=== PATIENT | female | born 1970 | race Caucasian/White ===

== ENCOUNTER 2019-03-27 19:02 | Emergency (ER) | payer OTHER, SELFPAY ==
[2019-03-27] VITALS (7 sets, daily range): BP systolic 122–147; BP diastolic 68–83; PULSE 91–109; RESP 14–21; TEMP 36.9; O2SAT 96–99
[2019-03-27 19:58] LABS: Bilirubin Negative (Negative); Blood Negative (Negative); Clarity Clear (Clear); Glucose Negative (Negative); Ketones Negative (Negative); Leukocyte Esterase Negative (Negative); Nitrite Negative (Negative); Specific Gravity 1.015 (1.005-1.025); Urobilinogen 0.2 EU/dL (Up TO 0.2)
[2019-03-27] MEDS: Normal Saline 1,000 ML 1000 ML IV (20:00)
[2019-03-27 20:38] LABS: Abs Immature Grans 0.01 k/cumm (0.0-0.09); Absolute Basophil Count 0.01 k/cumm (0.0-0.2); Absolute Eosinophil Count 0.28 k/cumm (0.0-0.7); Absolute Lymphocyte Count 1.63 k/cumm (1.2-3.4); Absolute Monocyte Count 0.44 k/cumm (0.11-0.7); Absolute Neutrophil Count 3.79 k/cumm (1.2-6.7); Basophils % 0.2; Eosinophils % 4.5; HGB 12.8 g/dL (12.0-15.5); Immature Grans % 0.2; Lymphocytes % 26.5; Mean Corp. HGB Concentration 33.7 g/dL (32.0-36.0); Mean Corpuscular Hemoglobin 29.3 pg (27.0-33.0); Mean Platelet Volume 9.9 fL (8.0-11.0); Monocytes % 7.1; Neutrophils % 61.5; Platelet Count 249 x1000/uL (130-400); RBC 4.37 m/cumm (4.00-5.20); RBC Distribution Width 12.8 % (11.7-14.6); White Blood Cell Count 6.16 k/cumm (4.4-10.8)
[2019-03-27 20:51] LABS: INR 0.9 (0.9-1.1); PTT Activated 21.5 sec (21.0-31.4); Prothrombin Time 9.3 sec (9.3-11.0)
[2019-03-27 21:04] LABS: ALT 35 U/L (12-78); AST 18 U/L (15-37); Albumin 3.7 g/dL (3.4-5.0); Alkaline Phosphatase 93 U/L (46-116); Anion Gap 8.6 mmol/L (3-11); BUN 17 mg/dL (7-18); Bilirubin, Total 0.2 mg/dL (0.2-1.0); CO2 28.4 mmol/L (21.0-32.0); CREATININE 1.17 mg/dL (0.55-1.02); Calcium 8.5 mg/dL (8.5-10.1); Chloride 105 mmol/L (98-107); Estimated GFR 48.96 (mL/min/1.73m2); Glucose 93 mg/dL (70-100); NT-proBNP 28 pg/mL; Sodium 142 mmol/L (136-145); Total Protein 7.5 g/dL (6.4-8.2); Troponin I < 0.05 ng/mL (0.00-0.06)
[2019-03-27] MEDS: Acetaminophen 500 MG TAB (21:07)
[2019-03-27 21:08] LABS: D-Dimer 538 ng/mlFEU (<500)
--- NOTE | 2019-03-27 21:21 | W.ED.GENAD ---
Discharge Plan Disposition Patient Disposition: HOME Condition: Good Discharge Details Chief Complaint: GenMedical Clinical Impression: CMV mononucleosis Primary Care Provider: Martin Raya ED Provider: Ross Crump Home Meds and New Rx's Prescriptions: No Action levothyroxine [Levoxyl] 125 MCG tablet 125 mcg PO DAILY RF: 0 liothyronine 5 MCG tablet 5 mcg PO BID RF: 0 epinephrine 0.3 MG/SYR auto-injector 0.3 mg IM PRN PRNRF: 0 escitalopram oxalate [Lexapro] 20 MG tablet 20 mg PO DAILY RF: 0 aspirin [Adult Low Dose Aspirin] 81 MG tablet,delayed release (DR/EC) 81 mg PO DAILY Qty: 100 RF: 0 nitroglycerin [Nitrostat] 0.4 MG tablet, sublingual 0.4 mg Sublingual Q5 MIN PRN X3 PRNQty: 100 RF: 0 Discharge Instructions Instructions: Mononucleosis (ED) Additional Instructions: You have mono. Please make sure that you are sleeping as much as possible, drinking plenty of fluids. If you notice any worsening of your symptoms, or any new symptoms such as vomiting, diarrhea, fever, chills, shortness of breath, chest pain, numbness, weakness, or fainting , bruising, pain on your left side of the abdomen, please return immediately to the emergency department for reevaluation. Please follow up with your primary care provider as soon as possible for reassessment and reevaluation. As always, it was a pleasure participating in your medical care today. Referrals: Martin Raya [Primary Care Provider] - Medical Decision Making This is a pleasant 48-year-old female who presents today for various symptoms mostly centering around fatigue, with a mild headache classic for her normal migraines, in addition to notable episode of syncope earlier today with mild shortness of breath. Physical exam demonstrates no neurologic abnormalities. No significant ,vertical or rotatory nystagmus. Questionable minimal horizontal nystagmus normal neurologic functioning, no clinical evidence of meningitis or meningeal signs. She does feel notably lightheaded when she does stand up. However orthostatic blood pressures are normal. Patient's resting heart rate is in the high 90s. With her history of PEs, not on anticoagulation, PE is certainly on the differential. We will add a d-dimer. We will assess for acute cardiac etiology. Will get neuroimaging secondary to her atypical dizziness and episode of syncope. We will rehydrate, evaluate for urinary abnormalities and reassess. 11 PM Patient's laboratory work-up has returned, no white count, thrombocytopenia, or coagulopathy. D-dimer was slightly elevated. CT Betsey was ordered. Electrolytes are normal, renal function stable. Troponin less than 0.05, proBNP and TSH are normal. Urinalysis negative for any evidence of infection. CT scan of the head is negative for any acute process per virtual radiology. CT angios the chest was performed, atypical timing of contrast was noted with an adequate opacification of all the pulmonary arteries. No significant pulmonary embolism noted, no evidence of dissection. No other abnormality for the lungs. With the lack of proper contrast opacification of the pulmonary vessels I did discuss this with the patient and she would like to hold off on any additional CT scans. We did discuss how this, albeit unlikely, may restrict complete diagnosis of a potential significant life-threatening abnormality that could lead to or disability. I feel that this is unlikely but still a possibility. We discussed this with the patient and family and through shared decision making process we decided to hold off in any additional CT findings. Of note the patient does state that her symptoms feel notably different and atypical from when she did have her last PE. In regards to her headache she was given a migraine cocktail and has notable improvement of her symptoms. Signs and symptoms are inconsistent with meningitis, CT scan negative for bleed or mass or stroke. Clinical exam is not consistent with acute intercranial bleed or subarachnoid hemorrhage. No concerning red flags for this historically. Additionally patient has notable improvement of her symptomatology after migraine cocktail. Due to the lack of any significant answer on work-up, in regards to her fatigue. I did add a Monospot, this is notably positive. Oropharynx demonstrates no evidence of significant erythema, tonsillar enlargement or other abnormality. However clinically with her history of severe fatigue over the last few days certainly is concerning for mono. No other significant laboratory or diagnostic abnormality noted I feel she can be safely discharged home. Urinalysis is negative for infection. Recommend fluids, plenty of sleep, and close follow-up with her PCP. Discussed red flags which to return. I have extensively reviewed the treatment plan and discharge instructions with the patient and their family. I have addressed all patient concerns at this time. The patient and family was made aware of what symptoms to monitor for that would warrant a return to the emergency department. Discussed the plan with the patient and family, they demonstrate verbal understanding and agreement with our assessment and plan at this time. EKG 20: 08 Rate 96, intervals normal, sinus rhythm, no significant ST elevations or depressions, Q waves in lead III, no significant T wave inversions. No evidence of STEMI. EKG from 02/17/2016 demonstrates identical findings. No acute changes FINDINGS: Pulmonary arteries: Due to late timing of scan following the intravenous administration of contrast, there is inadequate opacification of the pulmonary arteries to allow for evaluation of pulmonary embolus. Aorta: No aortic aneurysm. No aortic dissection. Lungs: No consolidation. No masses. Pleural space: No pneumothorax. No pleural effusion. Heart: No cardiomegaly. No pericardial effusion. Lymph nodes: Unremarkable. No enlarged lymph nodes. Bones/joints: No acute fracture. Soft tissues: Unremarkable. IMPRESSION: Due to late timing of scan following the intravenous administration of contrast, there is inadequate opacification of the pulmonary arteries to allow for evaluation of pulmonary embolus. Thank you for allowing us to participate in the care of your patient. Dictated and Authenticated by: Elier Wolfe MD FINDINGS: Brain: No evidence for acute transcortical infarct. No mass effect or midline shift. No extra-axial collection. No acute intracranial hemorrhage. Basal cisterns are patent. Ventricles: Normal. No ventriculomegaly. Bones/joints: Unremarkable. No acute fracture. Sinuses: Visualized sinuses are unremarkable. No fluid levels. Mastoid air cells: Visualized mastoid air cells are well aerated. No mastoid effusion. Soft tissues: Unremarkable. IMPRESSION: No evidence for acute transcortical infarct, acute intracranial hemorrhage, or mass effect. Thank you for allowing us to participate in the care of your patient. Dictated and Authenticated by: Elier Wolfe MD HPI General Date/Time Provider Initiated Documentation: 03/27/19 20:02. 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 Over the past 3 days the patient has noticed significant fatigue. She has been extremely tired at all times, and regularly wants to go back to sleep after she wakes up. She is also developed a mild gradual onset headache that is in the front of her head with a mild throbbing-like sensation. She has a history of headaches migraines and states that this is identical to the ones that she has had in the past. The patient denies any headache red flags of worst headache of life, thunderclap headache, neck pain, fever, chills, concerning family history of polycystic kidney disease, Marfan syndrome, Irina-Danlos syndrome, abdominal aortic aneurysm, aortic dissection, or intracranial aneurysm. In addition to this over the last 2 to 3 days she has also had increased shortness of breath and lightheadedness as well as mild dizziness. She denies any tinnitus. However today the symptoms somewhat climax with an episode of syncope while walking. She is not over exerting herself but just walking around when she felt everything go black. She was caught by her significant other who lowered her gently to the floor. She did not strike her head. She has had no episodes since then however her dizziness and lightheadedness is notably been worse since then. Patient also does complain of mild dysuria in feelings of urgency, but denies any hematuria fever and chills. Patient has no other complaints at this time. No other additional modifying factors. She denies any history of heart attack. Denies PE risk factors such as recent long car rides, immobilization, recent surgery, morbid obesity, exogenous estrogen and smoking, hemoptysis, history of cancer. The patient does admit to being postmenopausal. Related Data Home Medications Medication Instructions Recorded Confirmed epinephrine 0.3 mg IM PRN PRN 04/19/15 09/30/17 levothyroxine [Levoxyl] 125 mcg PO DAILY 04/19/15 09/30/17 liothyronine 5 mcg PO BID 04/19/15 09/30/17 escitalopram oxalate [Lexapro] 20 mg PO DAILY 09/30/17 09/30/17 aspirin [Adult Low Dose Aspirin EC] 81 mg PO DAILY #100 tablet. 10/01/17 nitroglycerin [Nitrostat] 0.4 mg SUBLINGUAL Q5 MIN PRN X3 10/01/17 PRN #100 tab Previous Rx's Medication Instructions Recorded aspirin [Adult Low Dose Aspirin EC] 81 mg PO DAILY #100 tablet. 10/01/17 nitroglycerin [Nitrostat] 0.4 mg SUBLINGUAL Q5 MIN PRN X3 10/01/17 PRN #100 tab Allergies Allergy/AdvReac Type Severity Reaction Status Date / Time azithromycin Allergy Unverified 03/27/19 21:08 codeine Allergy Unverified 03/27/19 21:08 honey Allergy Unverified 03/27/19 21:08 morphine Allergy Unverified 03/27/19 21:08 Penicillins Allergy Unverified 03/27/19 21:08 prednisone Allergy Unverified 09/30/17 15:09 Sulfa (Sulfonamide Allergy Unverified 03/27/19 21:08 Antibiotics) venom-honey bee Allergy Unverified 03/27/19 21:08 [bee venom (honey bee)] General Stated Complaint: GenMedical JOHN: 3 Review of Systems Review of Systems All systems reviewed & are unremarkable except as noted in HPI and below PFSH Social History Smoking/Tobacco Use Status: Never Alcohol Intake: current Alcohol Intake frequency: a few times a week Alcohol type: other Drug use: Never Substance use type: does not use Do you feel safe at home: Yes Do you feel safe in your relationship?: Yes History History Para 3 Hx # Term Pregnancies Multiple births Hx # Pregnancies Ectopic pregnancies AB induced Hx Number of Living Children AB spontaneous Exam Narrative Exam Narrative: 1.Const: Well-nourished, Well-developed, appearing stated age 2.Eyes: PERRL, no conjunctival injection, and symmetrical lids. Please see neuro for further evaluation 3.ENT: Atraumatic external nose and ears. Moist MM. Neck: Symmetric, trachea midline, No thyromegaly. Patient demonstrates good movement of cervical neck. There is no nuchal rigidity, no nuchal tenderness. Patient is able to flex the neck without any difficulty or significant pain. Negative Kernig's and Brudzinski sign. 4.CVS: +S1/S2, No murmurs or gallops. Peripheral pulses 2+ and equal in all extremities. Brisk capillary refill in all extremities. 5.RESP: Unlabored respiratory effort. Clear to auscultation bilaterally. No wheezes rales or rhonchi 6.GI: Soft, Nontender/Nondistended, No hepatosplenomegaly. No guarding or rebound. 7.MSK: Normocephalic/Atraumatic, Extremities w/o deformity or ttp No cyanosis or clubbing, Normal movement of all extremities. No calf tenderness 8.Skin: Warm, Dry. No rashes or lesions. 9.Neuro: marketing project specialist II-XII grossly intact. Sensation grossly intact, no focal neurologic deficits. All 6 cardinal planes of vision are fully intact. No evidence of rotatory or vertical nystagmus. The patient demonstrated a normal [id number], good dexterity. There was no evidence of dysdiadochokinesia. Patient was able to ambulate without difficulty. There was no wide-based gait. She does feel slightly unsteady when she stands upright. Romberg, and xagg-on-mohg are both normal on testing. Sensation was intact bilaterally as well as muscle strength bilaterally for all extremities. Patient was able to verbalize butter cup with no slurring, or miss pronunciation. Cerebellar function testing is normal. The patient demonstrates a normal hints exam with no findings concerning for a central event. No vertical nystagmus. Minimal left-sided horizontal lifestyle the head impulse test is negative for any significant central abnormality. Normal test of skew. No suggestion of a central cerebellar event. 10.Psych: (AAO) x3. Appropriate mood and affect Course Vital Signs Temperature 36.9 C 03/27/19 19:30 Pulse 109 H 03/27/19 19:30 Respiratory Rate 16 03/27/19 19:30 Blood Pressure 128/68 03/27/19 19:30 Pulse Oximetry 98 03/27/19 19:30 Temperature 36.9 C 03/27/19 19:30 Temperature Source Temporal Artery Scan 03/27/19 19:30 Pulse 91 H 03/27/19 20:46 Pulse 92 H 03/27/19 20:46 Respiratory Rate 21 03/27/19 20:46 Respiratory Effort Non-Labored 03/27/19 19:32 Respiratory Depth Normal 03/27/19 19:32 Respiratory Pattern Normal 03/27/19 19:32 Blood Pressure 147/80 H 03/27/19 20:46 Blood Pressure Mean 92 03/27/19 20:46 Blood Pressure Position Sitting 03/27/19 19:30 Pulse Oximetry 97 03/27/19 20:46 Oxygen Delivery Method Room Air 03/27/19 19:30 Oxygen Flow Rate 0 03/27/19 19:30 Lab/Test Results Lab/Test Results: Laboratory Tests Range/Units 03/27/19 03/27/19 03/27/19 19:45 20:20 20:20 WBC (4.4-10.8) k/cumm 6.16 RBC (4.00-5.20) m/cumm 4.37 Hgb (12.0-15.5) g/dL 12.8 Hct (36.0-46.0) % 38.0 MCV (80-95) fL 87.0 MCH (27.0-33.0) pg 29.3 MCHC (32.0-36.0) g/dL 33.7 RDW (11.7-14.6) % 12.8 Plt Count (130-400) x1000/uL 249 MPV (8.0-11.0) fL 9.9 Immature Gran % 0.2 Neutrophils % 61.5 Lymphocytes % 26.5 Monocytes % 7.1 Eosinophils % 4.5 Basophils % 0.2 Absolute Neutrophils (1.2-6.7) k/cumm 3.79 Absolute Lymphocytes (1.2-3.4) k/cumm 1.63 Absolute Monocytes (0.11-0.7) k/cumm 0.44 Absolute Eosinophils (0.0-0.7) k/cumm 0.28 Absolute Basophils (0.0-0.2) k/cumm 0.01 PT (9.3-11.0) sec INR (0.9-1.1) APTT (21.0-31.4) sec D-Dimer (<500) ng/mlFEU Sodium (136-145) mmol/L 142 Potassium (3.5-5.1) mmol/L 4.0 Chloride (98-107) mmol/L 105 Carbon Dioxide (21.0-32.0) mmol/L 28.4 Anion Gap (3-11) mmol/L 8.6 BUN (7-18) mg/dL 17 Creatinine (0.55-1.02) mg/dL 1.17 H Estimated GFR/1.73 m2 (mL/min/1.73m2) 48.96 Glucose (70-100) mg/dL 93 Calcium (8.5-10.1) mg/dL 8.5 Total Bilirubin (0.2-1.0) mg/dL 0.2 AST (15-37) U/L 18 ALT (12-78) U/L 35 Alkaline Phosphatase (46-116) U/L 93 Troponin I (0.00-0.06) ng/mL < 0.05 NT-Pro-B Natriuret Pep ( - 299) pg/mL 28 Total Protein (6.4-8.2) g/dL 7.5 Albumin (3.4-5.0) g/dL 3.7 TSH (0.36-3.74) uIU/mL 0.60 Urine Color (Yellow) Yellow Urine Clarity (Clear) Clear Urine pH (5-8) 6.0 Ur Specific [place] (1.005-1.025) 1.015 Urine Protein (Negative) mg/dL Negative Urine Ketones (Negative) mg/dL Negative Urine Blood (Negative) Negative Urine Nitrite (Negative) Negative Urine Bilirubin (Negative) Negative Urine Urobilinogen (Up TO 0.2) EU/dL 0.2 Ur Leukocyte Esterase (Negative) Negative Urine Glucose (Negative) mg/dL Negative Range/Units 03/27/19 03/27/19 20:20 20:20 WBC (4.4-10.8) k/cumm RBC (4.00-5.20) m/cumm Hgb (12.0-15.5) g/dL Hct (36.0-46.0) % MCV (80-95) fL MCH (27.0-33.0) pg MCHC (32.0-36.0) g/dL RDW (11.7-14.6) % Plt Count (130-400) x1000/uL MPV (8.0-11.0) fL Immature Gran % Neutrophils % Lymphocytes % Monocytes % Eosinophils % Basophils % Absolute Neutrophils (1.2-6.7) k/cumm Absolute Lymphocytes (1.2-3.4) k/cumm Absolute Monocytes (0.11-0.7) k/cumm Absolute Eosinophils (0.0-0.7) k/cumm Absolute Basophils (0.0-0.2) k/cumm PT (9.3-11.0) sec 9.3 INR (0.9-1.1) 0.9 APTT (21.0-31.4) sec 21.5 D-Dimer (<500) ng/mlFEU 538 H Sodium (136-145) mmol/L Potassium (3.5-5.1) mmol/L Chloride (98-107) mmol/L Carbon Dioxide (21.0-32.0) mmol/L Anion Gap (3-11) mmol/L BUN (7-18) mg/dL Creatinine (0.55-1.02) mg/dL Estimated GFR/1.73 m2 (mL/min/1.73m2) Glucose (70-100) mg/dL Calcium (8.5-10.1) mg/dL Total Bilirubin (0.2-1.0) mg/dL AST (15-37) U/L ALT (12-78) U/L Alkaline Phosphatase (46-116) U/L Troponin I (0.00-0.06) ng/mL NT-Pro-B Natriuret Pep ( - 299) pg/mL Total Protein (6.4-8.2) g/dL Albumin (3.4-5.0) g/dL TSH (0.36-3.74) uIU/mL Urine Color (Yellow) Urine Clarity (Clear) Urine pH (5-8) Ur Specific [place] (1.005-1.025) Urine Protein (Negative) mg/dL Urine Ketones (Negative) mg/dL Urine Blood (Negative) Urine Nitrite (Negative) Urine Bilirubin (Negative) Urine Urobilinogen (Up TO 0.2) EU/dL Ur Leukocyte Esterase (Negative) Urine Glucose (Negative) mg/dL
[2019-03-27] MEDS: Meclizine 25 MG TAB PO (21:30)
--- NOTE | 2019-03-27 21:30 | DI.CT_ITS ---
SYMPTOM/DIAGNOSIS: DIZZY, HEADACHE, SYNCOPE CRANIAL CT (WITHOUT CONTRAST): 03/[address] was performed. The ventricular system is normal in appearance. There is no evidence of an intracranial mass lesion. There is no evidence of a subdural or epidural hematoma. No focal areas of decreased attenuation are seen. CONCLUSION: Normal noncontrast Cranial CT.
--- NOTE | 2019-03-27 21:45 | DI.CT_ITS ---
SYMPTOM/DIAGNOSIS: SYNCOPE, CP, SOB, H/O PE'S. CT ANGIOGRAPHY CHEST: 03/27 CT angiography was performed with multi slice acquisition and multi planar and 3D reconstruction. CT angiography of the chest was performed with a bolus infusion of 100 cc Omnipaque 350. Missed timing due to technical factors caused suboptimal opacification of the pulmonary arteries and pulmonary embolic disease is not excluded. The lungs are clear. Thoracic aorta and major branches appear normal. No cardiac enlargement or pericardial effusion. No pleural effusion. Tracheobronchial tree appears intact. Images obtained through the upper abdomen show unremarkable appearance of visualized portions of liver, spleen and pancreas. CONCLUSION: Examination is nondiagnostic for pulmonary embolic disease. Negative scan as visualized.
[2019-03-27] MEDS: Omnipaque 350 MG/ML 100 ML BTL IJ (21:46)
--- NOTE | 2019-03-27 21:46 | DI.VRAD_ITS ---
EXAM: CT Head Without Contrast EXAM DATE/TIME: 03/27/2019 9:10 PM CLINICAL HISTORY: 48 years old, female; Headache: Dizzy, syncope TECHNIQUE: Imaging protocol: Computed tomography images of the head without contrast. Coronal and sagittal reformatted images were created and reviewed. Radiation optimization: All CT scans at this facility use at least one of these dose optimization techniques: automated exposure control; mA and/or kV adjustment per patient size (includes targeted exams where dose is matched to clinical indication); or iterative reconstruction. COMPARISON: No relevant prior studies available. FINDINGS: Brain: No evidence for acute transcortical infarct. No mass effect or midline shift. No extra-axial collection. No acute intracranial hemorrhage. Basal cisterns are patent. Ventricles: Normal. No ventriculomegaly. Bones/joints: Unremarkable. No acute fracture. Sinuses: Visualized sinuses are unremarkable. No fluid levels. Mastoid air cells: Visualized mastoid air cells are well aerated. No mastoid effusion. Soft tissues: Unremarkable. IMPRESSION: No evidence for acute transcortical infarct, acute intracranial hemorrhage, or mass effect. Dictated and Authenticated by: Elier Wolfe MD. Ordering:CHAIM Hawkins MD
--- NOTE | 2019-03-27 21:52 | DI.VRAD_ITS ---
EXAM: CT Angiography Chest With Contrast EXAM DATE/TIME: 03/27/2019 9:10 PM CLINICAL HISTORY: 48 years old, female; Shortness of breath and other: Syncope, chest pain; Patient HX: Chest pain, syncope, HX of pe, TECHNIQUE: Imaging protocol: Axial computed tomographic angiography images of the chest with intravenous contrast using CT angiography protocol. Coronal and sagittal reformatted images were created and reviewed. 3D rendering: MIP reconstructed images were created and reviewed. Radiation optimization: All CT scans at this facility use at least one of these dose optimization techniques: automated exposure control; mA and/or kV adjustment per patient size (includes targeted exams where dose is matched to clinical indication); or iterative reconstruction. Contrast material: OMNIPAQUE 350;Contrast volume: 100 ml;Contrast route: IV RAC; COMPARISON: CT CHEST FOR PULMONARY EMBOLUS 09/30/2017 4:42 PM FINDINGS: Pulmonary arteries: Due to late timing of scan following the intravenous administration of contrast, there is inadequate opacification of the pulmonary arteries to allow for evaluation of pulmonary embolus. Aorta: No aortic aneurysm. No aortic dissection. Lungs: No consolidation. No masses. Pleural space: No pneumothorax. No pleural effusion. Heart: No cardiomegaly. No pericardial effusion. Lymph nodes: Unremarkable. No enlarged lymph nodes. Bones/joints: No acute fracture. Soft tissues: Unremarkable. IMPRESSION: Due to late timing of scan following the intravenous administration of contrast, there is inadequate opacification of the pulmonary arteries to allow for evaluation of pulmonary embolus. Dictated and Authenticated by: Elier Wolfe MD. Ordering:CHAIM Hawkins MD
[2019-03-27] MEDS: Ketorolac 30 MG/ML VIAL IVP (22:28)
[2019-03-27] MEDS: diphenhydrAMINE 50 MG/ML VIAL 25 MG IVP (22:28)
[2019-03-27] MEDS: Prochlorperazine 10 MG/2 ML VIAL IVP (22:28)
[2019-03-27 22:31] LABS: Mono Screening POSITIVE (Negative)
== END 2019-03-27 23:17 | disposition home or self-care (01) ==
PROVIDERS: Physician Assistant; Emergency Provider Student in an Organized Health Care Education/Training Program; PCP Internal Medicine
DX: R55 Syncope and collapse (principal); B27.10 Cytomegaloviral mononucleosis without complications; R53.83 Other fatigue; R51 Headache; R42 Dizziness and giddiness; Z86.711 Personal history of pulmonary embolism
CPT/HCPCS: 36415; 71275; 80053; 93005; 96361; 96374; 96375; 99285; 70450; 81003; 83880; 84443; 84484; 85025; 85379; 85610; 85730; 86308; 93010; J0780; J1200; J1885; J3490

== ENCOUNTER 2019-08-10 00:50 | Inpatient (IN) | payer OTHER, SELFPAY ==
[2019-08-10] VITALS (16 sets, daily range): BP systolic 129–177; BP diastolic 80–109; PULSE 87–140; RESP 16–30; TEMP 36.3–37.9; O2SAT 94–100
[2019-08-10 01:13] LABS: Abs Immature Grans 0.01 k/cumm (0.0-0.09); Absolute Basophil Count 0.02 k/cumm (0.0-0.2); Absolute Eosinophil Count 0.32 k/cumm (0.0-0.7); Absolute Lymphocyte Count 1.14 k/cumm (1.2-3.4); Absolute Neutrophil Count 4.66 k/cumm (1.2-6.7); Basophils % 0.3; Eosinophils % 4.8; HGB 14.5 g/dL (12.0-15.5); Immature Grans % 0.2; Lymphocytes % 17.1; Mean Corp. HGB Concentration 33.7 g/dL (32.0-36.0); Mean Platelet Volume 9.8 fL (8.0-11.0); Monocytes % 7.5; Neutrophils % 70.1; Platelet Count 221 x1000/uL (130-400); RBC 5.18 m/cumm (4.00-5.20); RBC Distribution Width 13.4 % (11.7-14.6); White Blood Cell Count 6.65 k/cumm (4.4-10.8)
--- NOTE | 2019-08-10 01:14 | W.ED.GENAD ---
Discharge Plan Discharge Details Chief Complaint: GenMedical Primary Care Provider: Martin Raya ED Provider: Ross Crump Home Meds and New Rx's Prescriptions: No Action levothyroxine [Levoxyl] 125 MCG tablet 125 mcg PO DAILY RF: 0 liothyronine 5 MCG tablet 5 mcg PO BID RF: 0 epinephrine 0.3 MG/SYR auto-injector 0.3 mg IM PRN PRNRF: 0 meloxicam 15 mg Tablet 15 mg PO BID RF: 0 tizanidine 4 mg Tablet 6 mg PO Q6H PRNRF: 0 escitalopram oxalate [Lexapro] 20 MG tablet 20 mg PO DAILY RF: 0 aspirin [Adult Low Dose Aspirin] 81 MG tablet,delayed release (DR/EC) 81 mg PO DAILY Qty: 100 RF: 0 nitroglycerin [Nitrostat] 0.4 MG tablet, sublingual 0.4 mg Sublingual Q5 MIN PRN X3 PRNQty: 100 RF: 0 Medical Decision Making This is a 48-year-old female who presents today for abdominal pain constipation vomiting. Patient states that for the last 5 days she has not had any bowel movements. She has had notable generalized abdominal tenderness with subsequent vomiting, she will cough and gag secondary to the nausea, which then worsens her chronic neck pain. Physical exam demonstrates mild tenderness diffusely. No guarding or rebound. Vital signs demonstrate notable tachycardia. Patient has a significant history of inability to tolerate pain medications. Will give Tylenol and Motrin IV for the time being, which the patient does agree with, but does want us to hold off on any narcotics secondary to a history of anaphylaxis. We will give Zofran for nausea, rehydrate, get a CT scan of the abdomen to rule out obstruction and reassess. 2:30 AM Laboratory work-up has returned, and she demonstrates both unexpected and atypical findings. Her AST is 592, her ALT is 3400. Bilirubin is normal. We will add on an ammonia, PT PTT and INR, and get an acetaminophen level. However this will be slightly inaccurate since she was given the Tylenol here. Her transaminitis was notably not expected. The patient states very clearly that she has not taken any Tylenol for weeks. Review of her medications does reveal that she is taking tizanidine and meloxicam, both of which can cause transaminitis and hepatitis. We will add an acute hepatitis panel though. CT scan results demonstrate no acute process. I did contact Dr. Haley of virtual radi[facility] and he confirms that he sees no evidence of significant gallbladder or hepatic pathology. There is a small hepatic cyst but that is all. No formal ultrasonography is available at this time. With the patient's notable transaminitis, I do feel that she would benefit from admission for further evaluation and monitoring. I have contacted Dr. Bermudez the hospitalist, he agrees with the assessment and plan. I have extensively reviewed the treatment plan with the patient. I have addressed all patient concerns at this time. I have also discussed the plan with the admitting physician and they agree with the current assessment and plan and have agreed to assume responsibility for the patient. All parties demonstrate verbal understanding and agreement with our assessment and plan at this time. FINDINGS: Liver: No suspicious lesions. Gallbladder and bile ducts: No acute or concerning findings. Pancreas: Unremarkable. Spleen: No suspicious lesions. Adrenals: No suspicious nodule. Kidneys and ureters: No hydro. No suspicious lesions. Stomach and bowel: No inflammed or dilated loops. Appendix: No evidence of appendicitis. Intraperitoneal space: No free air. No significant fluid collection. Vasculature: Unremarkable. Lymph nodes: Unremarkable. Bladder: Unremarkable as visualized. Reproductive: Unremarkable as visualized. Bones/joints: Unremarkable. No acute fracture. Soft tissues: Unremarkable. IMPRESSION: No acute findings. Thank you for allowing us to participate in the care of your patient. Dictated and Authenticated by: David Haley MD 08/10/2019 2:00 AM Eastern Time ([place] & [place]) HPI General Date/Time Provider Initiated Documentation: 08/10/19 00:51. HPI Narrative: This is a 48-year-old female with past medical history of chronic neck pain for which she is managed at [facility], takes muscle relaxants for, who presents today for evaluation of constipation and abdominal pain. Patient states that for the last 5 days she has had mild generalized abdominal pain, cramping, and no bowel movements. She has had notable burping, and over the last 2 to 3 days notable vomiting, unable to keep anything down. She has been gagging regularly, which causes her to cough, which worsens her chronic neck pain. She denies any new or atypical headache. She denies any hematochezia, melena, hematemesis, acholic stool. She denies any numbness tingling or weakness. She has had 3X labs performed in the past, 2 of which were for endometriosis, 1 of which was 4 tubal ligation. The patient has stopped taking her muscle relaxants at this time as she is noted that it seems to make the nausea worse. She denies any fever or chills. She denies any other complaints at this time. No other modifying factors. Related Data Home Medications Medication Instructions Recorded Confirmed epinephrine 0.3 mg IM PRN PRN 04/19/15 08/10/19 levothyroxine [Levoxyl] 125 mcg PO DAILY 04/19/15 08/10/19 liothyronine 5 mcg PO BID 04/19/15 08/10/19 escitalopram oxalate [Lexapro] 20 mg PO DAILY 09/30/17 09/30/17 aspirin [Adult Low Dose Aspirin EC] 81 mg PO DAILY #100 tablet. 10/01/17 nitroglycerin [Nitrostat] 0.4 mg SUBLINGUAL Q5 MIN PRN X3 10/01/17 08/10/19 PRN #100 tab meloxicam 15 mg PO BID 08/10/19 08/10/19 tizanidine 6 mg PO Q6H PRN 08/10/19 08/10/19 Previous Rx's Medication Instructions Recorded aspirin [Adult Low Dose Aspirin EC] 81 mg PO DAILY #100 tablet. 10/01/17 nitroglycerin [Nitrostat] 0.4 mg SUBLINGUAL Q5 MIN PRN X3 10/01/17 PRN #100 tab Allergies Allergy/AdvReac Type Severity Reaction Status Date / Time azithromycin Allergy Unverified 08/10/19 00:57 codeine Allergy Unverified 08/10/19 00:57 honey Allergy Unverified 08/10/19 00:57 morphine Allergy Unverified 08/10/19 00:57 Penicillins Allergy Unverified 08/10/19 00:57 prednisone Allergy Unverified 08/10/19 00:57 Sulfa (Sulfonamide Allergy Unverified 08/10/19 00:57 Antibiotics) venom-honey bee Allergy Unverified 08/10/19 00:57 [bee venom (honey bee)] General Stated Complaint: GenMedical JOHN: 3 Review of Systems All systems reviewed & are unremarkable except as noted in HPI and below PFSH Social History Smoking/Tobacco Use Status: Never Alcohol Intake: current Alcohol Intake frequency: a few times a week Alcohol type: other Drug use: Never Substance use type: does not use Do you feel safe at home: Yes Do you feel safe in your relationship?: Yes History History Para 3 Hx # Term Pregnancies Multiple births Hx # Pregnancies Ectopic pregnancies AB induced Hx Number of Living Children AB spontaneous Exam Narrative Exam Narrative: 1.Const: Well-nourished, Well-developed, appearing stated age 2.Eyes: PERRL, no conjunctival injection, and symmetrical lids. 3.ENT: Atraumatic external nose and ears. Moist MM. Neck: Symmetric, trachea midline, No thyromegaly. Patient demonstrates good movement of cervical neck. There is no nuchal rigidity, no nuchal tenderness. Patient is able to flex the neck without any difficulty or significant pain. Negative Kernig's and Brudzinski sign. 4.CVS: +S1/S2, No murmurs or gallops. Peripheral pulses 2+ and equal in all extremities. Brisk capillary refill in all extremities. 5.RESP: Unlabored respiratory effort. Clear to auscultation bilaterally. No wheezes rales or rhonchi 6.GI: Soft, no distention, generalized tenderness throughout. Pain is present in the epigastric region, as well as lower abdomen. Bowel sounds are reduced. No pain at McBurney's point, negative Simpson sign. 7.MSK: Normocephalic/Atraumatic, Extremities w/o deformity or ttp No cyanosis or clubbing, Normal movement of all extremities 8.Skin: Warm, Dry. No rashes or lesions. 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 Sensation grossly intact, no focal neurologic deficits. 10.Psych: (AAO) x3. Appropriate mood and affect Course Vital Signs Vital signs: Vital Signs Temperature 36.3 C L 08/10/19 00:54 Pulse 140 H 08/10/19 00:54 Respiratory Rate 30 H 08/10/19 00:54 Blood Pressure 129/107 H 08/10/19 00:54 Pulse Oximetry 99 08/10/19 00:54 Temperature 36.3 C L 08/10/19 00:54 Temperature Source Temporal Artery Scan 08/10/19 00:54 Pulse 140 H 08/10/19 00:54 Respiratory Rate 30 H 08/10/19 00:54 Respiratory Effort Non-Labored 08/10/19 00:54 Blood Pressure 129/107 H 08/10/19 00:54 Blood Pressure Position Sitting 08/10/19 00:54 Pulse Oximetry 99 08/10/19 00:54 Oxygen Delivery Method Room Air 08/10/19 00:54 Oxygen Flow Rate 0 08/10/19 00:54
[2019-08-10] MEDS: Ketorolac 30 MG/ML VIAL IVP (01:17)
[2019-08-10] MEDS: Normal Saline 1,000 ML 1000 ML IV (01:17)
[2019-08-10] MEDS: ACETAMINOPHEN 1,000 MG/100 ML BTL 400 MG IVPB (01:17)
[2019-08-10] MEDS: Ondansetron 4 MG/2 ML VIAL IVP ×5 (01:17→21:18)
--- NOTE | 2019-08-10 01:21 | DI.CT_ITS ---
EXAM: CT ABDOMEN PELVIS WO CLINICAL HISTORY: vomiting, constipation, r/o obstruction TECHNIQUE: COMPARISON: No exams were available for comparison FINDINGS: CT examination of the abdomen and pelvis was performed without contrast administration. Images obta ined through the lung bases are unremarkable. Liver spleen, spleen, and pancreas appear normal. Gal lbladder and bile ducts are CT normal. Small fat containing umbilical hernia noted. No additional significant abdominal wall hernia seen. Abdominal aorta is of normal diameter. No abdominal or pelvic adenopathy seen. Adrenals and kidneys appear normal. No evidence of urinary tract calcification or obstruction. Appendix is normal. No evidence of diverticulitis or bowel obstruction. Foundry Hand structures unremarkable for age. IMPRESSION: No evidence of acute intra-abdominal process.
[2019-08-10 01:28] LABS: AST 592 U/L (15-37); Albumin 4.3 g/dL (3.4-5.0); Alkaline Phosphatase 128 U/L (46-116); Anion Gap 17.3 mmol/L (3-11); BUN 12 mg/dL (7-18); CO2 22.7 mmol/L (21.0-32.0); CREATININE 0.98 mg/dL (0.55-1.02); Calcium 9.6 mg/dL (8.5-10.1); Chloride 104 mmol/L (98-107); Glucose 132 mg/dL (74-106); Lipase 84 U/L (73-393); Potassium 3.7 mmol/L (3.5-5.1); Sodium 144 mmol/L (136-145); Total Protein 8.6 g/dL (6.4-8.2)
--- NOTE | 2019-08-10 02:00 | DI.VRAD_ITS ---
PROCEDURE INFORMATION: Exam: CT Abdomen And Pelvis Without Contrast Exam date and time: 08/10/2019 1:02 AM Age: 48 years old Clinical indication: Constipation and nausea and vomiting; Abdominal pain; Generalized; Patient HX: Constipation and vomiting R/O obstruction TECHNIQUE: Imaging protocol: Computed tomography of the abdomen and pelvis without contrast. Radiation optimization: All CT scans at this facility use at least one of these dose optimization techniques: automated exposure control; mA and/or kV adjustment per patient size (includes targeted exams where dose is matched to clinical indication); or iterative reconstruction. COMPARISON: No relevant prior studies available. FINDINGS: Liver: No suspicious lesions. Gallbladder and bile ducts: No acute or concerning findings. Pancreas: Unremarkable. Spleen: No suspicious lesions. Adrenals: No suspicious nodule. Kidneys and ureters: No hydro. No suspicious lesions. Stomach and bowel: No inflammed or dilated loops. Appendix: No evidence of appendicitis. Intraperitoneal space: No free air. No significant fluid collection. Vasculature: Unremarkable. Lymph nodes: Unremarkable. Bladder: Unremarkable as visualized. Reproductive: Unremarkable as visualized. Bones/joints: Unremarkable. No acute fracture. Soft tissues: Unremarkable. IMPRESSION: No acute findings. Dictated and Authenticated by: David Haley MD. Ordering:CHAIM Hawkins MD
[2019-08-10 02:15] LABS: ALT 3409 U/L (14-59)
--- NOTE | 2019-08-10 03:05 | W.PM.HP.N ---
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 APAP level also pending but states has not taken for one month.Will trend enzymes and treat nausea with prn Zofran. Pain control will be challenging as patient has h/o serious allergies to both opiates and steroids (viz. anaphylaxis). States that hot and cold packs have been most effective, will continue. Note that has had some effect from NSAIDs but will need to hold insofar as this is also potentially the trigger. May benefit from allergy testing (to other opiates and steroids) to see if there is something we can add. History of Present Illness History of Present Illness Chief Complaint: abdominal pain Narrative: 48 female with several months of cervical neuralgia secondary to herniated disc C3-4; also h/o multiple allergies; for past month omer had abd pain and nausea since starting Zanaflex (also some reflux type issues with Meloxxicam). In ER w/u of note forALT 3409, AST 592, with normal bilirubin. CT abdomen negative. Given Zofran for nausea with some improvement. Also received single dose of Toradol and APAP ((prior to labs). Admitted for further managementt. No h/o transfusion or IVDA, no EtOH, monogamous. No other new meds. Review of Systems All systems reviewed & are unremarkable except as noted in HPI and below PFSH Social History Smoking/Tobacco Use Status: Never Alcohol Intake: current Alcohol Intake frequency: a few times a week Alcohol type: other Drug use: Never Substance use type: does not use Do you feel safe at home: Yes Do you feel safe in your relationship?: Yes History History Para 3 Hx # Term Pregnancies Multiple births Hx # Pregnancies Ectopic pregnancies AB induced Hx Number of Living Children AB spontaneous Meds Home Medications and Allergies Home Medications Medication Instructions Recorded Confirmed Type epinephrine 0.3 mg IM PRN PRN 04/19/15 08/10/19 History levothyroxine [Levoxyl] 125 mcg PO DAILY 04/19/15 08/10/19 History liothyronine 5 mcg PO BID 04/19/15 08/10/19 History escitalopram oxalate [Lexapro] 20 mg PO DAILY 09/30/17 09/30/17 History aspirin [Adult Low Dose Aspirin EC] 81 mg PO DAILY #100 tablet. 10/01/17 Rx nitroglycerin [Nitrostat] 0.4 mg SUBLINGUAL Q5 MIN PRN X3 10/01/17 08/10/19 Rx PRN #100 tab meloxicam 15 mg PO BID 08/10/19 08/10/19 History tizanidine 6 mg PO Q6H PRN 08/10/19 08/10/19 History Allergies Allergy/AdvReac Type Severity Reaction Status Date / Time azithromycin Allergy Unverified 08/10/19 00:57 codeine Allergy Unverified 08/10/19 00:57 honey Allergy Unverified 08/10/19 00:57 morphine Allergy Unverified 08/10/19 00:57 Penicillins Allergy Unverified 08/10/19 00:57 prednisone Allergy Unverified 08/10/19 00:57 Sulfa (Sulfonamide Allergy Unverified 08/10/19 00:57 Antibiotics) venom-honey bee Allergy Unverified 08/10/19 00:57 [bee venom (honey bee)] Exam Narrative Exam Narrative: 156/80, 106, 30, 36.3. HEENE anicteric; neck guarding ; lungs clear; heart RRR w/o MRG; abdomen soft mild -moderate epigastric and RUQ tenderness; pelvic/rectal deferred; extremities w/o edema; neuro Ox3, motor 5/5, decreased touch left hand digits 4 and 5 Results Labs Result diagrams: 08/10/19 01:00 08/10/19 01:00 Labs: Laboratory Results - last 24 hr 08/10/19 08/10/19 01:00 01:00 WBC 6.65 RBC 5.18 Hgb 14.5 Hct 43.0 MCV 83.0 MCH 28.0 MCHC 33.7 RDW 13.4 Plt Count 221 MPV 9.8 Immature Gran % 0.2 Neutrophils % 70.1 Lymphocytes % 17.1 Monocytes % 7.5 Eosinophils % 4.8 Basophils % 0.3 Absolute Neutrophils 4.66 Absolute Lymphocytes 1.14 L Absolute Monocytes 0.50 Absolute Eosinophils 0.32 Absolute Basophils 0.02 Sodium 144 Potassium 3.7 Chloride 104 Carbon Dioxide 22.7 Anion Gap 17.3 H BUN 12 Creatinine 0.98 Estimated GFR/1.73 m2 >= 60.00 Glucose 132 H Calcium 9.6 Total Bilirubin 1.0 AST 592 H ALT 3409 H Alkaline Phosphatase 128 H Total Protein 8.6 H Albumin 4.3 Lipase 84 Last Vital Signs Temp 36.3 C L 08/10/19 00:54 Pulse 106 H 08/10/19 03:00 Resp 30 H 08/10/19 03:00 BP 156/80 H 08/10/19 03:00 Pulse Ox 100 08/10/19 03:00
[2019-08-10 03:09] LABS: Ammonia < 10 umol/L (11-32)
[2019-08-10 03:50] LABS: INR 1.2 (0.9-1.1); PTT Activated 25.4 sec (21.0-31.4); Prothrombin Time 11.6 sec (9.3-11.0)
[2019-08-10 03:52] LABS: Acetaminophen 5 ug/mL (10-30)
[2019-08-10] MEDS: Lactated Ringers 1,000 ML 80 ML IV ×2 (04:01→16:16)
[2019-08-10] MEDS: Normal Saline Flush 10 ML SYR IVP ×6 (04:01→22:18)
[2019-08-10 06:10] LABS: Bilirubin Negative (Negative); Blood Negative (Negative); Clarity Clear (Clear); Glucose Negative (Negative); Ketones Trace mg/dL (Negative); Leukocyte Esterase Negative (Negative); Nitrite Negative (Negative); Specific Gravity 1.015 (1.005-1.025); Urobilinogen 0.2 EU/dL (Up TO 0.2); pH 7.5 (5-8)
[2019-08-10] MEDS: Prochlorperazine 10 MG TAB PO (08:38)
[2019-08-10] MEDS: Metoprolol 12.5 MG TAB PO (08:38)
[2019-08-10] MEDS: Liothyronine 5 MCG TAB PO ×2 (08:39→19:32)
[2019-08-10 10:02] LABS: AST 410 U/L (15-37)
[2019-08-10] MEDS: LORazepam 2 MG/ML VIAL 0.5 MG IVP ×3 (10:15→22:17)
[2019-08-10 11:32] LABS: ALT 1259 U/L (14-59)
--- NOTE | 2019-08-10 11:35 | PDOC.CMIN ---
Care Management Initial Assess REASON FOR HOSPITALIZATION:: Transaminitis PAST MEDICAL HISTORY/PAST SURGICAL HISTORY:: CVA, Migraine, Irritable bowel disease, vertigo, obesity; endometriosis, Hypothyroidism, anxiety, tubal ligation, wisdom teeth extraction, basal cell cancer removal PREVIOUS FUNCTIONAL STATUS/SOCIAL/FAMILY SUPPORTS:: Jermaine resides in [facility] with her , Eris and their children. 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 CURRENT FUNCTIONAL STATUS:: Jermaine was struggling with symptoms and pain throughout the day and unable to engage with this instructional writer. ADVANCE DIRECTIVES:: None on file at [facility]. Has patient been provided with information about the portal?: Yes Did the patient sign up for the portal?: Yes (Previously) CODE STATUS:: Full Code INSURANCE COVERAGE / FINANCIAL ISSUES:: [facility] (Not [facility]) CURRENT HOME/COMMUNITY SERVICES/EQUIPMENT:: [facility] PRIMARY CARE PHYSICIAN:: Martin Raya POTENTIAL DISCHARGE NEEDS:: Follow up appointment with PCP. PATIENT/FAMILY EDUCATION NEEDS:: Review of discharge instructions; discuss Ask Me Three. ANTICIPATED BARRIERS TO DISCHARGE:: None identified TRANSPORTATION:: Via private vehicle with her . PLAN:: Jermaine will discharge home when ready per MD. She will follow up with her PCP and plan of care as prescribed. She will transport home via private vehicle with her , Eris. CM will continue to follow.
--- NOTE | 2019-08-10 12:24 | NUR.NOTE ---
Nursing Note: patient was given ativan this morning for the symptom management of nausea and headache. Patient was checked at noon time, and she was resting comfortably
--- NOTE | 2019-08-10 12:27 | PHARADMIT ---
Addendum entered by Jayla Hussein 08/11/19 16:25: Pharmacy Note Subjective Feels better today, nausea improved, tolerating clear liquids Objective AST/ALT 358/1180 (down slightly from yesterday) Assessment hepatitis likely related to tizanidine Plan will discharge home with lab monitoring once can tolerate a diet without cont. vomiting Original Note: Admission Pharmacy Clinical Review Transaminitis< Medication induce Hepatitis Code Status Full Code Current Weight Wgt-121.1 kg Renally Cleared and Narrow Therapeutic Index Meds CrCl~ 66.7 mL/min Meds-OK QTc Value / Action Taken QTc-437 (Mar-2019) NA BP Control, Fever BP-160/92 Tmax- 37.2C Electrolytes reviewed Na-144 K+3.7 DVT Prophylaxis none Opiate Usage / Scheduled Bowel Regimen Ordered No No Plt/SCr for Heparin / Enoxaparin Plts-221 SCR-0.98 INR for Warfarin inr-1.2 H/H stable, WBC/Bands H&H- 14.5/43.0 WBC- 6.65 Antibiotic appropriateness none Cultures and Sensitivities none Surgical ABX d/c within 24 hr na DM control / Insulin Dosing BG-132 Heart Failure (Check EF%) (ORQUIDEA's, B-Block, Diuretics) None IV to PO Switch No Home Meds Reviewed Yes Home Meds Not Ordered ASA, EpiPen, Lexapro, NTG, Tizanidine, Meloxicam Comments AST-410 ALT-1,259 [id number]
[2019-08-10] MEDS: Metoprolol 25 MG TAB PO (21:06)
[2019-08-10] MEDS: Bisacodyl 10 MG SUPP PR (21:06)
[2019-08-11] MEDS: Ondansetron 4 MG/2 ML VIAL IVP (02:08)
[2019-08-11] MEDS: Normal Saline Flush 10 ML SYR IVP ×3 (02:08→20:44)
[2019-08-11] MEDS: Lactated Ringers 1,000 ML 80 ML IV ×2 (04:59→17:34)
[2019-08-11] MEDS: Levothyroxine 125 MCG TAB PO (05:09)
[2019-08-11 07:15] LABS: INR 1.2 (0.9-1.1); Prothrombin Time 11.8 sec (9.3-11.0)
[2019-08-11 07:23] LABS: AST 358 U/L (15-37); Albumin 3.7 g/dL (3.4-5.0); Alkaline Phosphatase 115 U/L (46-116); BUN 5 mg/dL (7-18); Bilirubin, Total 1.1 mg/dL (0.2-1.0); CREATININE 0.81 mg/dL (0.55-1.02); Chloride 104 mmol/L (98-107); Glucose 112 mg/dL (74-106); Potassium 3.5 mmol/L (3.5-5.1); Sodium 142 mmol/L (136-145); Total Protein 7.6 g/dL (6.4-8.2)
[2019-08-11 07:35] VITALS: BP 145/96; PULSE 96; RESP 18; TEMP 36.8; O2SAT 96
[2019-08-11 08:05] LABS: ALT 1180 U/L (14-59)
[2019-08-11] MEDS: Liothyronine 5 MCG TAB PO ×2 (08:44→19:28)
[2019-08-11] MEDS: Metoprolol 25 MG TAB PO ×2 (08:44→19:28)
--- NOTE | 2019-08-11 13:17 | W.PM.PROGNOT ---
Date of Service Date of service: 08/11/19 Time of Service: 13:37 Assessment and Plan Assessment and plan (1) Hepatitis: Status: Chronic Assessment and plan: Of unclear origin, most likely related to new medication, Zanaflex. LFTs improving. Hepatitis panel pending. No history of blood transfusion, IV drug abuse or alcohol abuse. Abdominal pain and nausea improving. Continue antiemetics as needed. Add PPI for epigastric discomfort. She is tolerating clear liquids, advance diet. Discharge home with outpatient monitoring when she can tolerate a diet without continuous vomiting. Repeat LFTs tomorrow. (2) Hypothyroidism: Status: Chronic Assessment and plan: Continue Levothyroxine and liothyronine. (3) Cervical neuralgia: Status: Acute Assessment and plan: Stable. Ice and/or heat for comfort. She is followed by [facility]. (4) DVT prophylaxis: Status: Acute Assessment and plan: Subcutaneous Lovenox. (5) Discharge planning issues: Status: Acute Assessment and plan: She is a full code. She will discharge home with outpatient monitoring of labs when she can tolerate a diet without excessive nausea and vomiting. This case was discussed with Dr. Hernandez who is in agreement. Subjective Subjective Interval history since last seen: Jermaine reports feeling better today than when she came into the hospital. Her abdominal pain is primarily in the epigastric region. Her nausea has improved, phenergan helped. She has been tolerating clear liquids. She is interested in advancing her diet. She has not had a normal bowel movement in several days. She was able to sleep today, she has not been sleeping well for months. Her headache has improved. She gets headaches intermittently at home. Her AST and ALT improved again today. Exam Narrative Exam Narrative: General: pleasant 48 year old female, appears stated age, overweight, sitting up in chair in NAD. HEENT: normocephalic, atraumatic, pupils equal and round, EOMI, mucous membranes moist. Neck: supple, no JVD. Cardiovascular: heart has regular rate and rhythm, no murmur appreciated. Respiratory: respirations even and unlabored, lung sounds clear throughout. Abdomen: soft, mild epigastric discomfort on palpation, nondistended, normal bowel sounds throughout. Extremities: mild edema to LLE, chronic. Pedal pulses palpated bilaterally. Objective Objective Clinical Data: Abnormal lab results 08/11/19 08/11/19 Range/Units 06:05 06:05 PT 11.8 H (9.3-11.0) sec INR 1.2 H (0.9-1.1) BUN 5 L (7-18) mg/dL Glucose 112 H (74-106) mg/dL Total Bilirubin 1.1 H (0.2-1.0) mg/dL AST 358 H (15-37) U/L ALT 1180 H (14-59) U/L Vital Signs Temperature 36.8 C 08/11/19 07:35 Temperature Source Tympanic 08/11/19 07:35 Pulse 96 H 08/11/19 07:35 Pulse Rhythm Regular 08/11/19 02:08 Respiratory Rate 18 08/11/19 07:35 Respiratory Effort 08/11/19 02:08 Respiratory Depth Normal 08/11/19 02:08 Respiratory Pattern Normal 08/11/19 02:08 Blood Pressure 145/96 H 08/11/19 07:35 Blood Pressure Position Sitting 08/10/19 00:54 Pulse Oximetry 96 08/11/19 07:35 Oxygen Delivery Method Room Air 08/11/19 07:35 Oxygen Flow Rate 0 08/11/19 07:35 Pain Level 0 08/11/19 07:35 Comment 08/10/19 23:20 Intake & Output 08/10/19 08/11/19 08/11/19 23:59 11:59 23:59 Intake Total 980 / 2099 1372.333 / 1372.333 Output Total 700 / 700 Balance 980 / 1850 672.333 / 672.333 Weight 122.1 kg Intake: IV 980 / 2099 1132.333 / 1132.333 Oral 240 / 240 Output: Urine 700 / 700 Other: Urine Color Yellow Urine Appearance Clear Clear Urine Odor None Comment Voiding independently in toilet Voiding Methods Toilet Toilet Laboratory Results WBC 6.65 k/cumm (4.4-10.8) 08/10/19 01:00 RBC 5.18 m/cumm (4.00-5.20) 08/10/19 01:00 Hgb 14.5 g/dL (12.0-15.5) 08/10/19 01:00 Hct 43.0 % (36.0-46.0) 08/10/19 01:00 MCV 83.0 fL (80-95) 08/10/19 01:00 MCH 28.0 pg (27.0-33.0) 08/10/19 01:00 MCHC 33.7 g/dL (32.0-36.0) 08/10/19 01:00 RDW 13.4 % (11.7-14.6) 08/10/19 01:00 Plt Count 221 x1000/uL (130-400) 08/10/19 01:00 MPV 9.8 fL (8.0-11.0) 08/10/19 01:00 Immature Gran % 0.2 08/10/19 01:00 Neutrophils % 70.1 08/10/19 01:00 Lymphocytes % 17.1 08/10/19 01:00 Monocytes % 7.5 08/10/19 01:00 Eosinophils % 4.8 08/10/19 01:00 Basophils % 0.3 08/10/19 01:00 Absolute Neutrophils 4.66 k/cumm (1.2-6.7) 08/10/19 01:00 Absolute Lymphocytes 1.14 k/cumm (1.2-3.4) L 08/10/19 01:00 Absolute Monocytes 0.50 k/cumm (0.11-0.7) 08/10/19 01:00 Absolute Eosinophils 0.32 k/cumm (0.0-0.7) 08/10/19 01:00 Absolute Basophils 0.02 k/cumm (0.0-0.2) 08/10/19 01:00 PT 11.8 sec (9.3-11.0) H 08/11/19 06:05 INR 1.2 (0.9-1.1) H 08/11/19 06:05 APTT 25.4 sec (21.0-31.4) 08/10/19 01:00 Sodium 142 mmol/L (136-145) 08/11/19 06:05 Potassium 3.5 mmol/L (3.5-5.1) 08/11/19 06:05 Chloride 104 mmol/L (98-107) 08/11/19 06:05 Carbon Dioxide 27.0 mmol/L (21.0-32.0) 08/11/19 06:05 Anion Gap 11.0 mmol/L (3-11) 08/11/19 06:05 BUN 5 mg/dL (7-18) L 08/11/19 06:05 Creatinine 0.81 mg/dL (0.55-1.02) 08/11/19 06:05 Estimated GFR/1.73 m2 >= 60.00 (mL/min/1.73m2) 08/11/19 06:05 Glucose 112 mg/dL (74-106) H 08/11/19 06:05 Calcium 9.0 mg/dL (8.5-10.1) 08/11/19 06:05 Total Bilirubin 1.1 mg/dL (0.2-1.0) H 08/11/19 06:05 AST 358 U/L (15-37) H 08/11/19 06:05 ALT 1180 U/L (14-59) H 08/11/19 06:05 Alkaline Phosphatase 115 U/L (46-116) 08/11/19 06:05 Ammonia < 10 umol/L (11-32) L 08/10/19 02:26 Total Protein 7.6 g/dL (6.4-8.2) 08/11/19 06:05 Albumin 3.7 g/dL (3.4-5.0) 08/11/19 06:05 Lipase 84 U/L (73-393) 08/10/19 01:00 Urine Color Yellow (Yellow) 08/10/19 05:17 Urine Clarity Clear (Clear) 08/10/19 05:17 Urine pH 7.5 (5-8) 08/10/19 05:17 Ur Specific [place] 1.015 (1.005-1.025) 08/10/19 05:17 Urine Protein Negative mg/dL (Negative) 08/10/19 05:17 Urine Ketones Trace mg/dL (Negative) H 08/10/19 05:17 Urine Blood Negative (Negative) 08/10/19 05:17 Urine Nitrite Negative (Negative) 08/10/19 05:17 Urine Bilirubin Negative (Negative) 08/10/19 05:17 Urine Urobilinogen 0.2 EU/dL (Up TO 0.2) 08/10/19 05:17 Ur Leukocyte Esterase Negative (Negative) 08/10/19 05:17 Urine Glucose Negative mg/dL (Negative) 08/10/19 05:17 Acetaminophen 5 ug/mL (10-30) L 08/10/19 02:26
--- NOTE | 2019-08-11 14:18 | W.NUTCONSULT ---
Date of service: 08/11/19 Time of Service: 14:18 Nutritional Consult ASSESSMENT: 48 year old female admitted with abdominal pain, vomiting presents with Hepatits (?drug inclused), herneated discs C3-4. BMI indicates class 3 obesity, morbid obesity. Following Regular Meal plan with poor intake. will continue to monitor po intake and intervene as needed. Expect return to normal appetite once pain/nausea subsides. MONITORING AND EVALUATION: po intake, weight trends Time Spent in Nutritional Counseling and Treatment: 0 time spent face to face
[2019-08-11] MEDS: Pantoprazole 40 MG VIAL IVP (14:50)
[2019-08-11 15:24] VITALS: BP 129/86; PULSE 97; RESP 18; TEMP 36.9; O2SAT 97
[2019-08-11] MEDS: Enoxaparin 40 MG/0.4 ML SYR SC (16:05)
--- NOTE | 2019-08-11 17:57 | PDOC.CMPRO ---
Care Management Progress Note S/O: Jermaine was sitting up in her chair when CM met with her. She reported feeling better and explained her medical course thus far and how frustrating her experience has been. She has trialled many different medications without success due to allergies and reactions. She identified a lack of care coordination through her multiple providers at [facility]. 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 Her also works in [place] and her children live in different parts of [place]. Her daughter left her job in at [employer] to care for Jermaine at this time. Her son is also in College and on break at this time. Jermaine is hopeful the right medications or steroids can be identified to manage her nerve pain without making her sick. CM continues to follow. A: 48 year old female admitted to [facility] 08/10/19 for Transaminitis P: Jermaine will discharge home when ready per MD. She will follow up with her PCP, [facility] providers and plan of care as prescribed. She will transport home via private vehicle with family. CM will continue to follow.
[2019-08-11] MEDS: Polyethylene Glycol 3350 17 GM PACKET PO (19:28)
[2019-08-11] MEDS: Docusate Sodium 100 MG CAP PO (19:28)
[2019-08-11] MEDS: LORazepam 2 MG/ML VIAL 0.5 MG IVP (20:43)
[2019-08-11 23:42] VITALS: BP 119/67; PULSE 88; RESP 18; TEMP 37.5; O2SAT 96
[2019-08-12] MEDS: Levothyroxine 125 MCG TAB PO (05:46)
[2019-08-12] MEDS: Lactated Ringers 1,000 ML 80 ML IV (05:47)
[2019-08-12 06:54] LABS: Platelet Count 171 x1000/uL (130-400)
[2019-08-12 07:10] VITALS: BP 138/84; PULSE 87; RESP 16; TEMP 37.2; O2SAT 95
[2019-08-12 08:21] VITALS: O2SAT 94
[2019-08-12] MEDS: Liothyronine 5 MCG TAB PO (08:34)
[2019-08-12] MEDS: Metoprolol 25 MG TAB PO (08:34)
[2019-08-12] MEDS: Polyethylene Glycol 3350 17 GM PACKET PO (08:34)
[2019-08-12] MEDS: Docusate Sodium 100 MG CAP PO (08:34)
[2019-08-12 08:39] LABS: ALT 899 U/L (14-59); AST 295 U/L (15-37); Albumin 3.3 g/dL (3.4-5.0); Alkaline Phosphatase 99 U/L (46-116); Anion Gap 9.2 mmol/L (3-11); BUN 10 mg/dL (7-18); Bilirubin, Total 0.8 mg/dL (0.2-1.0); CO2 26.8 mmol/L (21.0-32.0); CREATININE 0.83 mg/dL (0.55-1.02); Calcium 8.7 mg/dL (8.5-10.1); Chloride 107 mmol/L (98-107); Glucose 105 mg/dL (74-106); Potassium 3.7 mmol/L (3.5-5.1); Sodium 143 mmol/L (136-145); Total Protein 6.4 g/dL (6.4-8.2)
[2019-08-12 08:52] LABS: INR 1.1 (0.9-1.1); Prothrombin Time 11.4 sec (9.3-11.0)
[2019-08-12 10:06] LABS: Hepatitis A Antibody IgM Negative (Negative); Hepatitis B Core Antibody Negative (Negative); Hepatitis B surface Ag Negative (Negative); Hepatitis C Ab w Rflx HCV PCR Negative (Negative)
--- NOTE | 2019-08-12 10:49 | DSE_ITS ---
Date of service: 08/12/19 Time of Service: 10:49 DS: Diagnosis Discharge Diagnosis (1) Hepatitis: Status: Chronic (2) Hypothyroidism: Status: Chronic (3) Cervical neuralgia: Status: Acute Discharge Plan Disposition Patient Disposition: HOME Condition: Improving Discharge Details Chief Complaint: GenMedical Reason For Visit: TRANSAMINITIS Admit Date/Time: 08/10/19 02:33 Admit Provider: Ariel Bermudez Attending Provider: Ariel Bermudez Primary Care Provider: Martin Raya ED Provider: Ross Crump Hospital Course Hospital Course: Jermaine Mancera is a very pleasant 48-year-old female with a past medical history significant for cervical neuralgia secondary to herniated disc at C3-C4, history of multiple allergies, hypothyroidism who presented to the emergency department on 08/10/2019 with reports of severe abdominal pain, nausea and vomiting since starting Zanaflex as prescribed by [facility] In the emergency department her labs were notable for an ALT of 3409, AST 592, with normal bilirubin, and INR of 1.2. She denied illicit drug use, alcohol use, states she is monogamous in relationship, no previous history of blood transfusion and she had not taken acetaminophen for over a month. She was thought to have a drug-induced hepatitis, likely from Zanaflex. She was admitted for further observation and management. She was initiated on IV fluids, her LFTs were trended, her ALT trended down to 899, her AST was down to 295, her alk phos was normal at 99, and INR was down to 1.2 by the day of discharge. Her acetaminophen level came back low at 5ug/ml. Hepatitis panel is still pending at the time of discharge. She was no longer nauseated or vomiting. She was able to tolerate a regular diet. She was eager for discharge home. She is discharged home for outpatient monitoring of liver function. The Zanaflex has been discontinued and will not be resumed. She also reported GERD symptoms with NSAIDs, her pain is well controlled with ice alone. She will not be discharged on Zanaflex or NSAIDs. She will follow up with her PCP and [facility] as scheduled. Home Meds and New Rx's Prescriptions: New metoprolol tartrate 25 mg Tablet 25 mg PO BID Qty: 60 RF: 0 omeprazole 40 mg capsule,delayed release(DR/EC) 40 mg PO DAILY Qty: 30 RF: 0 ondansetron 4 mg tablet,disintegrating 4 mg PO Q8H PRN (Reason: nausea and vomiting) Qty: 10 RF: 0 Continued levothyroxine [Levoxyl] 125 MCG tablet 125 mcg PO DAILY RF: 0 liothyronine 5 MCG tablet 5 mcg PO BID RF: 0 epinephrine 0.3 MG/SYR auto-injector 0.3 mg IM PRN PRNRF: 0 nitroglycerin [Nitrostat] 0.4 MG tablet, sublingual 0.4 mg Sublingual Q5 MIN PRN X3 PRNQty: 100 RF: 0 Discontinued meloxicam 15 mg Tablet 15 mg PO BID RF: 0 tizanidine 4 mg Tablet 6 mg PO Q6H PRNRF: 0 escitalopram oxalate [Lexapro] 20 MG tablet 20 mg PO DAILY RF: 0 aspirin [Adult Low Dose Aspirin] 81 MG tablet,delayed release (DR/EC) 81 mg PO DAILY Qty: 100 RF: 0 Discharge Instructions Instructions: Liver Profile (GEN) Additional Instructions: Stop taking Zanaflex. Do not take NSAIDS- due to GERD symptoms. Take omeprazole to help with the GERD symptoms/epigastric pain. Use heat/ice for comfort. Zofran for nausea as needed. Metoprolol is new for your fast heart rate, discuss this with your PCP. Resume your usual diet as tolerated. No tylenol or products that contain tylenol. You will need to have labs drawn on 08/15/18 to reassess your liver function. Follow up with your PCP and [facility] as scheduled. Take care! Stand Alone Forms: Nursing Discharge Form Referrals: Valentina Pires [NURSE PRACTITIONER] - 08/18/19 9:00 am (At the [facility]) Activity:: Activity as Tolerated Equipment/Supplies:: No Equipment Needed Diet:: As Tolerated Discharge Orders Discharge Orders: Discharge Order (Routine); Ordered 08/12/19 Ordered By: Shruthi Fay DS: Summary Status at Discharge Functional status at discharge: independent ambulation Overall status at discharge: patient is progressing back to baseline Mental Status: mental status grossly normal Speech and Movement: speech and movement normal Mood: congruent mood Affect: normal affect Exam Narrative Exam Narrative: General: pleasant 48 year old female, appears stated age, overweight, sitting up in bed in NAD. HEENT: normocephalic, atraumatic, pupils equal and round, EOMI, mucous membranes moist. Neck: supple, no JVD. Cardiovascular: heart has regular rate and rhythm, no murmur appreciated. Respiratory: respirations even and unlabored, lung sounds clear throughout. Abdomen: soft, mild epigastric discomfort on palpation, nondistended, normal bowel sounds throughout. Extremities: mild edema to LLE, chronic. Pedal pulses palpated bilaterally. Psych Mental Status: mental status grossly normal Speech and Movement: speech and movement normal Mood: congruent mood Affect: normal affect DS: Data Vitals/I&O Vitals and I&O: Vital Signs Temperature 37.2 C 08/12/19 07:10 Temperature Source Tympanic 08/12/19 07:10 Pulse 87 08/12/19 07:10 Pulse Rhythm Regular 08/12/19 02:47 Respiratory Rate 16 08/12/19 07:10 Respiratory Effort Non-Labored 08/12/19 02:47 Respiratory Depth Normal 08/12/19 02:47 Respiratory Pattern Normal 08/12/19 02:47 Blood Pressure 138/84 08/12/19 07:10 Blood Pressure Position Sitting 08/10/19 00:54 Pulse Oximetry 94 L 08/12/19 08:21 Oxygen Delivery Method Room Air 08/12/19 08:21 Oxygen Flow Rate 0 08/12/19 08:21 Pain Level 4 08/12/19 07:10 Comment 08/10/19 23:20 Intake & Output 08/11/19 08/11/19 08/12/19 11:59 23:59 11:59 Intake Total 1372.333 / 3491.000 2118.667 / 3491.000 1377.333 / 1377.333 Output Total 700 / 1150 450 / 1150 800 / 800 Balance 672.333 / 2341.000 1668.667 / 2341.000 577.333 / 577.333 Weight 122.1 kg 122.2 kg Intake: IV 1132.333 / 2051.000 918.667 / 2051.000 977.333 / 977.333 Oral 240 / 1440 1200 / 1440 400 / 400 Output: Urine 700 / 1150 450 / 1150 800 / 800 Other: Urine Color Yellow Yellow Straw Urine Appearance Clear Clear Clear Urine Odor None Normal Normal Comment pt voiding x 2 so far this shift; pt voiding independently, urine not assessed pt states urine color has improved; states urine was very dark earlier in the week. Voiding Methods Toilet Toilet Toilet Data Completed and Pending Pending studies at discharge: 08/10/19 EXAM: CT ABDOMEN PELVIS WO CLINICAL HISTORY: vomiting, constipation, r/o obstruction TECHNIQUE: COMPARISON: No exams were available for comparison FINDINGS: CT examination of the abdomen and pelvis was performed without contrast administration. Images obtained through the lung bases are unremarkable. Liver spleen, spleen, and pancreas appear normal. Gallbladder and bile ducts are CT normal. Small fat containing umbilical hernia noted. No additional significant abdominal wall hernia seen. Abdominal aorta is of normal diameter. No abdominal or pelvic adenopathy seen. Adrenals and kidneys appear normal. No evidence of urinary tract calcification or obstruction. Appendix is normal. No evidence of diverticulitis or bowel obstruction. Electromedical Equipment Technician structures unremarkable for age. IMPRESSION: No evidence of acute intra-abdominal process. Labs on day of discharge: Labs from last 24 hours 08/12/19 08/12/19 08/12/19 08:35 06:05 06:05 Plt Count 171 PT 11.4 H INR 1.1 Sodium 143 Potassium 3.7 Chloride 107 Carbon Dioxide 26.8 Anion Gap 9.2 BUN 10 Creatinine 0.83 Estimated GFR/1.73 m2 >= 60.00 Glucose 105 Calcium 8.7 Total Bilirubin 0.8 AST 295 H ALT 899 H Alkaline Phosphatase 99 Total Protein 6.4 Albumin 3.3 L PFSH Social History Smoking/Tobacco Use Status: Never Alcohol Intake: current Alcohol Intake frequency: a few times a week Alcohol type: other Drug use: Never Substance use type: does not use Do you feel safe at home: Yes Do you feel safe in your relationship?: Yes History History Para 3 Hx # Term Pregnancies Multiple births Hx # Pregnancies Ectopic pregnancies AB induced Hx Number of Living Children AB spontaneous
[2019-08-12 14:39] LABS: ANA Interpretation Positive (Negative); ANA Titer Pattern 1:160 Speckled
--- NOTE | 2019-08-12 16:13 | CMDISCH_ITS ---
- If Service Date Differs Date of service: 08/12/19 Time of Service: 16:13 Care Management Discharge Reason for Hospitalization: Transaminitis Discharge Plan: Jermaine is being discharged home with her daugther today. She has follow up scheduled with provider on 08/18/19. She will transport home via private car no additional services at time of discharge. Patient/Family Education Needs: Discharge education, limitations and follow up p petey of care reviewed by nursing prior to discharge.
== END 2019-08-12 12:04 | disposition home or self-care (01) | DRG 443 ==
LOC: ER 03:14 → MS 03:15
PROVIDERS: Family Medicine; Internal Medicine; Nurse Practitioner; Admitting Provider General Practice; Emergency Provider Student in an Organized Health Care Education/Training Program; PCP Internal Medicine; Visit Provider Internal Medicine
DX: K71.2 Toxic liver disease with acute hepatitis (principal); T42.8X5A Adverse effect of antiparkinsonism drugs and other central muscle-tone depressants, initial encounter; K21.9 Gastro-esophageal reflux disease without esophagitis; E03.9 Hypothyroidism, unspecified; G58.8 Other specified mononeuropathies
CPT/HCPCS: 36415; 80053; 83690; 86704; 86709; 86803; 87340; 96361; 96365; 96375; 99222; 99232; 99239; 99285; J1650; 74176; 80329; 81003; 82140; 84450; 84460; 85025; 85049; 85610; 85730; 86038; J0131; J1885; J2060; J2405; J3490

== ENCOUNTER 2019-08-15 02:43 | Outpatient (CLI) | payer OTHER, SELFPAY ==
[2019-08-15 17:43] LABS: ALT 568 U/L (14-59); AST 149 U/L (15-37); Albumin 3.8 g/dL (3.4-5.0); Alkaline Phosphatase 111 U/L (46-116); Anion Gap 13.2 mmol/L (3-11); BUN 11 mg/dL (7-18); Bilirubin, Total 0.5 mg/dL (0.2-1.0); CO2 23.8 mmol/L (21.0-32.0); CREATININE 0.99 mg/dL (0.55-1.02); Chloride 105 mmol/L (98-107); Estimated GFR 59.37 (mL/min/1.73m2); Glucose 118 mg/dL (74-106); Potassium 4.2 mmol/L (3.5-5.1); Sodium 142 mmol/L (136-145); Total Protein 7.3 g/dL (6.4-8.2)
== END 2019-08-15 03:03 ==
PROVIDERS: PCP Internal Medicine; Visit Provider Nurse Practitioner
DX: K75.9 Inflammatory liver disease, unspecified (principal)
CPT/HCPCS: 36415; 80053

== ENCOUNTER 2020-04-10 08:31 | Outpatient (CLI) | payer OTHER, SELFPAY ==
[2020-04-12 11:18] LABS: Patient Race White; SARS-CoV-2 RNA Undetected (Undetected)
[2020-04-12 11:19] LABS: SARS-CoV-2 Specimen Source Nasopharynx
== END 2020-04-10 08:51 ==
PROVIDERS: PCP Internal Medicine; Visit Provider Internal Medicine
DX: Z20.828 Contact with and (suspected) exposure to other viral communicable diseases (principal)
CPT/HCPCS: U0003

== ENCOUNTER 2020-09-05 02:59 | Outpatient (CLI) | payer OTHER, SELFPAY ==
[2020-09-05 08:04] LABS: Abs Immature Grans 0.02 10^3/uL (0.0-0.06); Absolute Basophil Count 0.02 10^3/uL (0.0-0.2); Absolute Eosinophil Count 0.22 10^3/uL (0.0-0.7); Absolute Lymphocyte Count 1.78 10^3/uL (1.2-3.4); Absolute Monocyte Count 0.37 10^3/uL (0.1-0.8); Absolute Neutrophil Count 2.46 10^3/uL (1.2-6.7); Basophils % 0.4; Eosinophils % 4.5; HCT 41.4 % (36.0-46.0); HGB 13.5 g/dL (11.2-15.7); Immature Grans % 0.4; Lymphocytes % 36.6; MCH 27.8 pg (27.0-33.0); MCHC 32.6 % (32.0-36.0); MCV 85.2 fL (80-95); MPV 10.1 fL (8.0-11.0); Monocytes % 7.6; Neutrophils % 50.5; Nucleated RBC 0 %; Platelet Count 205 10^3/uL (130-400); RBC 4.86 10^6/uL (3.93-5.22); RDW 12.9 % (11.7-14.6); RDW-SD 39.8 fL; WBC 4.87 10^3/uL (4.4-10.8)
[2020-09-05 08:17] LABS: Hemoglobin A1C 5.6 % (<5.7)
[2020-09-05 09:16] LABS: ALT 28 U/L (14-59); AST 13 U/L (15-37); Albumin 3.9 g/dL (3.4-5.0); Alkaline Phosphatase 84 U/L (46-116); BUN 20 mg/dL (7-18); Bilirubin, Total 0.5 mg/dL (0.2-1.0); CREATININE 0.96 mg/dL (0.55-1.02); Calcium 8.8 mg/dL (8.5-10.1); Calculated LDL 176 mg/dL (<100); Chloride 103 mmol/L (98-107); Cholesterol 241 mg/dL (<200); Glucose 100 mg/dL (74-106); HDL Cholesterol 47 mg/dL (40-60); Potassium 4.1 mmol/L (3.5-5.1); Sodium 137 mmol/L (136-145); Total Protein 6.9 g/dL (6.4-8.2); Triglyceride 92 mg/dL (<150)
== END 2020-09-05 03:19 ==
PROVIDERS: PCP Internal Medicine; Visit Provider Nurse Practitioner
DX: Z13.220 Encounter for screening for lipoid disorders (principal); Z13.1 Encounter for screening for diabetes mellitus; E03.9 Hypothyroidism, unspecified
CPT/HCPCS: 36415; 80053; 80061; 83036; 84443; 85025

== ENCOUNTER 2020-10-31 13:38 | Emergency (ER) | payer OTHER, SELFPAY ==
[2020-10-31] VITALS (29 sets, daily range): BP systolic 128–156; BP diastolic 76–97; PULSE 79–108; RESP 12–25; TEMP 36.8; O2SAT 94–98
--- NOTE | 2020-10-31 13:45 | RT.EKG_ITS ---
APPROVED REPORT Exam: Resting ECG Patient Location: E HR:93 bpm ECG Measurements Heart Rate 93 AXIS MI 153 P 32 QRSd 88 QRS 14 QT 349 T 54 QTc 434 Conclusion Sinus rhythm...normal P axis, V-rate 60- 99 Low voltage, precordial leads...precordial leads <1.0mV
[2020-10-31] MEDS: Prochlorperazine 10 MG/2 ML VIAL 5 MG IVP (14:40)
[2020-10-31] MEDS: Acetaminophen 500 MG TAB 1000 MG PO (14:40)
[2020-10-31] MEDS: Normal Saline 1,000 ML 1000 ML IV (14:40)
--- NOTE | 2020-10-31 14:41 | ED.GENADUL_ITS ---
Discharge Plan Disposition Patient Disposition: HOME Condition: Good Discharge Details Clinical Impression: Malaise and fatigue Primary Care Provider: Martin Raya ED Provider: Zahira Barragan Home Meds and New Rx's Prescriptions: New prochlorperazine maleate [Compazine] 10 mg tablet 10 mg PO Q6H PRNQty: 10 RF: 0 No Action levothyroxine [Levoxyl] 125 MCG tablet 125 mcg PO DAILY RF: 0 liothyronine 5 MCG tablet 5 mcg PO BID RF: 0 epinephrine 0.3 MG/SYR auto-injector 0.3 mg IM PRN PRNRF: 0 metoprolol tartrate 25 mg Tablet 25 mg PO BID Qty: 60 RF: 0 omeprazole 40 mg capsule,delayed release(DR/EC) 40 mg PO DAILY Qty: 30 RF: 0 ondansetron 4 mg tablet,disintegrating 4 mg PO Q8H PRN (Reason: nausea and vomiting) Qty: 10 RF: 0 nitroglycerin [Nitrostat] 0.4 MG tablet, sublingual 0.4 mg Sublingual Q5 MIN PRN X3 PRNQty: 100 RF: 0 Discharge Instructions Additional Instructions: Ibuprofen and Tylenol as needed for headache Rest, hydrate Compazine as needed for headache Follow-up with primary care physician in 24 to 48 hours for reevaluation and return earlier should you have new or worsening complaints Should you have worsening shortness of breath, chest discomfort, I recommend you return for further evaluation Medical Decision Making D-dimer 512 with negative troponin, negative BNP, and EKG without S1 every 3 T3, my suspicion for pulmonary embolism is quite low, however D-dimer is not a suggested indicator in a patient with prior history of pulmonary embolism and patient is aware of this She declined CTA at this time and she is aware of the risk associated with her decision, I do think is reasonable that she is not tachypneic, tachycardic, or hypoxic She ambulates for 2 minutes without hypoxia and in no acute distress Chest x-ray does not show acute pathology She is given low threshold to return with new or worsening complaints At time of reevaluation, I think 1 troponin is reasonable given that she has been 5 hours of symptom-free HPI This 49-year-old female with history of pulmonary embolism remote, hypothyroidism, cervical neuralgia, fibromyalgia presents with report of feeling like she has a virus . She states that she had some vertiginous symptoms approximately a week ago which is since resolved and now is presenting secondary to hypoxia at home, she reports that her pulse oximeter she was 88% night. She states she also had cough, malaise, fatigue, and some mild shortness of breath with exertion. She denies any calf pain or swelling. She denies any known sick contacts. She denies any hemoptysis. She denies any vomiting but has been intermittently nauseous. She does have a headache, she has a history of migraine headaches and states this is not dramatically different from her prior. She did have one episode of chest pain at approximately 930 this morning. She states that this was similar to her costochondritis pain that she had in the past. She denies known history of coronary artery disease. She denies any new medications. She denies any falls or injuries. Currently aside from feeling tired she is asymptomatic. She denies any recent flights, surgeries, long drives. Interestingly with her pulmonary embolism she denies being on anticoagulation. She states that this was found in 2018 and they attributed it to a immobilization etiology. Denies chills or fever. General Date/Time Provider Initiated Documentation: 10/31/20 13:44 . Related Data Home Medications Medication Instructions Recorded Confirmed epinephrine 0.3 mg IM PRN PRN 04/19/15 08/10/19 levothyroxine [Levoxyl] 125 mcg PO DAILY 04/19/15 08/10/19 liothyronine 5 mcg PO BID 04/19/15 08/10/19 nitroglycerin [Nitrostat] 0.4 mg SUBLINGUAL Q5 MIN PRN X3 10/01/17 08/10/19 PRN #100 tab metoprolol tartrate 25 mg PO BID #60 tab 08/12/19 omeprazole 40 mg PO DAILY #30 cap 08/12/19 ondansetron 4 mg PO Q8H PRN #10 tab 08/12/19 prochlorperazine maleate 10 mg PO Q6H PRN #10 tab 10/31/20 [Compazine] Previous Rx's Medication Instructions Recorded nitroglycerin [Nitrostat] 0.4 mg SUBLINGUAL Q5 MIN PRN X3 10/01/17 PRN #100 tab metoprolol tartrate 25 mg PO BID #60 tab 08/12/19 omeprazole 40 mg PO DAILY #30 cap 08/12/19 ondansetron 4 mg PO Q8H PRN #10 tab 08/12/19 prochlorperazine maleate 10 mg PO Q6H PRN #10 tab 10/31/20 [Compazine] Allergies Allergy/AdvReac Type Severity Reaction Status Date / Time azithromycin Allergy Unverified 08/10/19 00:57 codeine Allergy Unverified 08/10/19 00:57 honey Allergy Unverified 08/10/19 00:57 morphine Allergy Unverified 08/10/19 00:57 Penicillins Allergy Unverified 08/10/19 00:57 prednisone Allergy Unverified 08/10/19 00:57 Sulfa (Sulfonamide Allergy Unverified 08/10/19 00:57 Antibiotics) venom-honey bee Allergy Unverified 08/10/19 00:57 [bee venom (honey bee)] General Stated Complaint: GenMedical JOHN: 3 Review of Systems Narrative: Review of systems obtained x7 aside from where indicated in HPI thank you for full follow-up Mansoor control and admission has not pulled gabapentin with metastases of the distal Elevated Waiting on Null cath follow-up [facility] Medical History (Updated 10/31/20 @ 16:17 by ANA Ratliff) Cervical neuralgia Hepatitis Hypothyroidism Pulmonary embolus, right Social History Smoking/Tobacco Use Status: Never Smoking risk assessment performed?: Yes Alcohol Intake: current Alcohol Intake frequency: holidays/special occasions only Alcohol type: other Drug use: Never Substance use type: does not use Do you feel safe at home: Yes Do you feel safe in your relationship?: Yes History History Para 3 Hx # Term Pregnancies Multiple births Hx # Pregnancies Ectopic pregnancies AB induced Hx Number of Living Children AB spontaneous Course Vital Signs Vital signs: Vital Signs Temperature 36.8 C 10/31/20 13:51 Pulse 102 H 10/31/20 13:51 Respiratory Rate 15 10/31/20 13:51 Blood Pressure 139/76 10/31/20 13:51 Pulse Oximetry 98 10/31/20 13:51 Temperature 36.8 C 10/31/20 13:51 Temperature Source Skin 10/31/20 13:51 Pulse 102 H 10/31/20 13:51 Respiratory Rate 20 10/31/20 13:58 Respiratory Effort 10/31/20 13:58 Respiratory Depth Normal 10/31/20 13:58 Respiratory Pattern Normal 10/31/20 13:58 Blood Pressure 139/76 10/31/20 13:51 Blood Pressure Position Sitting 10/31/20 13:51 Pulse Oximetry 98 10/31/20 13:51 Oxygen Delivery Method Room Air 10/31/20 13:51 Oxygen Flow Rate 0 10/31/20 13:51 Pain Level 5 10/31/20 13:51
[2020-10-31 14:49] LABS: Abs Immature Grans 0.02 10^3/uL (0.0-0.06); Absolute Basophil Count 0.03 10^3/uL (0.0-0.2); Absolute Eosinophil Count 0.27 10^3/uL (0.0-0.7); Absolute Lymphocyte Count 1.58 10^3/uL (1.2-3.4); Absolute Monocyte Count 0.39 10^3/uL (0.1-0.8); Absolute Neutrophil Count 3.32 10^3/uL (1.2-6.7); Basophils % 0.5; Eosinophils % 4.8; HCT 43.4 % (36.0-46.0); HGB 14.3 g/dL (11.2-15.7); Immature Grans % 0.4; Lymphocytes % 28.2; MCH 28.1 pg (27.0-33.0); MCHC 32.9 % (32.0-36.0); MCV 85.3 fL (80-95); MPV 10.3 fL (8.0-11.0); Neutrophils % 59.1; Nucleated RBC 0 %; Platelet Count 253 10^3/uL (130-400); RBC 5.09 10^6/uL (3.93-5.22); RDW 12.9 % (11.7-14.6); RDW-SD 39.8 fL; WBC 5.61 10^3/uL (4.4-10.8)
--- NOTE | 2020-10-31 15:03 | DI.RAD_ITS ---
EXAM: XR PORTABLE CHEST AP CLINICAL HISTORY: PUI, sob, cough. TECHNIQUE: 2D digital imaging was performed. COMPARISON: CR PORTABLE CHEST ONE VIEW from 09/30/2017 FINDINGS: Heart size is normal. The mediastinum is not widened. Lungs are clear. No infiltrates nor obvious pleural effusions. IMPRESSION: No acute pulmonary findings on this single AP portable view of the chest. DATA REPOSITORY: RADIATION DOSE DELIVERED: All CT scans at this facility use at least one of these dose optimization techniques: automated exposure control; mA and/or kV adjustment per patient size (includes targeted e xams where dose is matched to clinical indication); or iterative reconstruction.
[2020-10-31 15:05] LABS: ALT 31 U/L (14-59); AST 15 U/L (15-37); Albumin 3.8 g/dL (3.4-5.0); Alkaline Phosphatase 103 U/L (46-116); Anion Gap 8.3 mmol/L (3-11); BUN 16 mg/dL (7-18); Bilirubin, Total 0.4 mg/dL (0.2-1.0); CO2 28.7 mmol/L (21.0-32.0); CREATININE 0.9 mg/dL (0.55-1.02); Calcium 9.4 mg/dL (8.5-10.1); Chloride 102 mmol/L (98-107); Glucose 102 mg/dL (74-106); NT-proBNP 12 pg/mL (<300); Potassium 3.8 mmol/L (3.5-5.1); Sodium 139 mmol/L (136-145); TSH 1.35 uIU/mL (0.36-3.74); Total Protein 7.8 g/dL (6.4-8.2)
[2020-10-31 15:06] LABS: Troponin I < 0.05 ng/mL (<0.06)
[2020-10-31 15:16] LABS: D-Dimer 512 ng/mlFEU (<500)
[2020-10-31] MEDS: Ketorolac 15 MG/ML VIAL IVP (16:26)
[2020-11-01 13:32] LABS: COVID-19 RT-PCR UVMMC Result Negative (Negative)
[2020-11-02 12:57] LABS: EBV EA IgG Positive (Negative)
== END 2020-10-31 16:37 | disposition home or self-care (01) ==
PROVIDERS: Emergency Provider Physician Assistant; PCP Internal Medicine
DX: R53.81 Other malaise (principal); R53.83 Other fatigue; R05 Cough; Z03.818 Encounter for observation for suspected exposure to other biological agents ruled out
CPT/HCPCS: 36415; 80053; 86663; 93005; 96361; 96374; 96375; 99285; U0003; 71045; 83880; 84443; 84484; 85025; 85379; 93010; 99281; J0780; J1885

== ENCOUNTER 2021-02-19 03:51 | Outpatient (CLI) | payer OTHER, SELFPAY ==
[2021-02-19 09:07] LABS: Abs Immature Grans 0.02 10^3/uL (0.0-0.06); Absolute Basophil Count 0.01 10^3/uL (0.0-0.2); Absolute Eosinophil Count 0.22 10^3/uL (0.0-0.7); Absolute Lymphocyte Count 1.61 10^3/uL (1.2-3.4); Absolute Monocyte Count 0.47 10^3/uL (0.1-0.8); Absolute Neutrophil Count 3.56 10^3/uL (1.2-6.7); Basophils % 0.2; Eosinophils % 3.7; HCT 39.3 % (36.0-46.0); HGB 12.8 g/dL (11.2-15.7); Immature Grans % 0.3; Lymphocytes % 27.3; MCH 28.4 pg (27.0-33.0); MCHC 32.6 % (32.0-36.0); MCV 87.3 fL (80-95); MPV 9.4 fL (8.0-11.0); Neutrophils % 60.5; Nucleated RBC 0 %; Platelet Count 210 10^3/uL (130-400); RDW 13.2 % (11.7-14.6); RDW-SD 42.3 fL; WBC 5.89 10^3/uL (4.4-10.8)
[2021-02-19 10:44] LABS: ALT 28 U/L (14-59); AST 13 U/L (15-37); Albumin 3.8 g/dL (3.4-5.0); Alkaline Phosphatase 83 U/L (46-116); Anion Gap 9.6 mmol/L (3-11); BUN 16 mg/dL (7-18); Bilirubin, Total 0.3 mg/dL (0.2-1.0); CO2 26.4 mmol/L (21.0-32.0); CREATININE 0.9 mg/dL (0.55-1.02); Calcium 8.5 mg/dL (8.5-10.1); Chloride 106 mmol/L (98-107); FREE T4 1.15 ng/dL (0.76-1.46); Glucose 102 mg/dL (74-106); Potassium 4.5 mmol/L (3.5-5.1); Sodium 142 mmol/L (136-145); TSH 0.84 uIU/mL (0.36-3.74)
== END 2021-02-19 03:52 | disposition home or self-care (01) ==
PROVIDERS: PCP Internal Medicine; Visit Provider Internal Medicine
DX: R53.83 Other fatigue (principal); R05 Cough
CPT/HCPCS: 36415; 80053; 84439; 84443; 85025

== ENCOUNTER 2022-03-07 18:59 | Emergency (ER) | payer OTHER, SELFPAY ==
[2022-03-07 19:09] VITALS: BP 127/71; PULSE 95; RESP 18; TEMP 36.7; O2SAT 98
--- NOTE | 2022-03-07 20:33 | ED.GENADUL_ITS ---
Discharge Plan Disposition Patient Disposition: HOME Condition: Stable Discharge Details Clinical Impression: COVID-19 Primary Care Provider: Martin Raya ED Provider: Gigi Cabrera Home Meds and New Rx's Prescriptions: Continued levothyroxine [Levoxyl] 125 MCG tablet 125 mcg PO DAILY liothyronine 5 MCG tablet 5 mcg PO BID epinephrine 0.3 MG/SYR auto-injector 0.3 mg IM PRN PRN Label Comments: not used recently Discharge Instructions Instructions: COVID-19 (Coronavirus Disease 2019) (ED) Additional Instructions: Please take paxlovid, dose according to the label twice daily for 5 days. Please contact your primary care physician to arrange follow-up. Maintain home isolation for 5 days and until symptoms completely resolved. Return to the ER immediately for any worsening or new concerning symptoms. Referrals: Martin Raya [Primary Care Provider] - Discharge Data Discharge Date/Time-TO BE ENTERED AT DEPARTURE: 03/07/22 21:48 Medical Decision Making 51-year-old female here with cough, fatigue, myalgias and sore throat since yesterday. Patient tested positive for COVID at home and sent to the ED for evaluation. Patient is saturating well in no respiratory distress with clear lung sounds. She does not appear septic. Hemodynamically stable. Patient does have past medical history significant for pulmonary embolism as well as hypothyroidism. Given potential cardiopulmonary risk factor, I will initiate treatment with paxlovid. I did check renal function and creatinine is normal. Dose pack of pack paxlovid was provided. Usual customary discharge instructions were reviewed with the patient. HPI General Date/Time Provider Initiated Documentation: 03/07/22 20:19 . Limitations to Documentation: no limitations . Information obtained by: patient . HPI Narrative: 51-year-old female here with cough, fatigue, myalgias and sore throat since yesterday. Patient tested positive for COVID at home and sent to the ED for evaluation. Symptoms are moderate. No modifiers. No associated shortness of breath. Related Data Home Medications Medication Instructions Recorded Confirmed epinephrine 0.3 mg/0.3 mL 0.3 mg IM PRN PRN 04/19/15 03/07/22 injection, auto-injector levothyroxine 125 mcg tablet 125 mcg PO DAILY 04/19/15 03/07/22 (Levoxyl) liothyronine 5 mcg tablet 5 mcg PO BID 04/19/15 03/07/22 Allergies Allergy/AdvReac Type Severity Reaction Status Date / Time sulfamethoxazole Allergy Severe Anaphylaxis Unverified 03/07/22 19:13 [From Bactrim] trimethoprim [From Bactrim] Allergy Severe Anaphylaxis Unverified 03/07/22 19:13 azithromycin Allergy Unverified 08/10/19 00:57 codeine Allergy Unverified 08/10/19 00:57 honey Allergy Unverified 08/10/19 00:57 morphine Allergy Unverified 08/10/19 00:57 Penicillins Allergy Unverified 03/07/22 19:12 prednisone Allergy Unverified 08/10/19 00:57 Sulfa (Sulfonamide Allergy Unverified 08/10/19 00:57 Antibiotics) venom-honey bee Allergy Unverified 08/10/19 00:57 [bee venom (honey bee)] General Stated Complaint: Sorethroat JOHN: 4 Review of Systems All systems reviewed & are unremarkable except as noted in HPI and below Constitutional Constitutional: Reports body ache(s) ENT Ears, Nose, Mouth, and Throat: Reports sore throat PFSH All Active Problems Malaise and fatigue (Acute) COVID-19 (Acute) Pulmonary embolus, right (Acute) Hepatitis (Chronic) Hypothyroidism (Chronic) Cervical neuralgia (Acute) Discharge planning issues (Acute) DVT prophylaxis (Acute) Chest pain (Acute) Social History Smoking/Tobacco Use Status: Never Smoking risk assessment performed?: Yes Alcohol Intake: current Alcohol Intake frequency: holidays/special occasions only Alcohol type: other Drug use: Never Substance use type: does not use Do you feel safe at home: Yes Do you feel safe in your relationship?: Yes History History Para 3 Hx # Term Pregnancies Multiple births Hx # Pregnancies Ectopic pregnancies AB induced Hx Number of Living Children AB spontaneous Exam Const General: cooperative and no acute distress HENMT Mouth: moist mucous membranes Eyes Conjunctivae: normal conjunctivae Sclera: normal sclerae Resp Auscultation: clear to auscultation bilaterally, no rales, no rhonchi and no wheezes Cardio Rate: regular rate and not tachycardic Rhythm: regular rhythm Neuro General: patient alert, patient awake and tone normal Course Vital Signs Vital signs: Vital Signs Temperature 36.7 C 03/07/22 19:09 Pulse 95 H 03/07/22 19:09 Respiratory Rate 18 03/07/22 19:09 Blood Pressure 127/71 03/07/22 19:09 Pulse Oximetry 98 03/07/22 19:09 Temperature 36.7 C 03/07/22 19:09 Pulse 95 H 03/07/22 19:09 Respiratory Rate 18 03/07/22 19:09 Respiratory Effort Non-Labored 03/07/22 19:15 Blood Pressure 127/71 03/07/22 19:09 Pulse Oximetry 98 03/07/22 19:09 Pain Level 7 03/07/22 19:09
[2022-03-07 21:05] LABS: Anion Gap 6.6 mmol/L (3-11); BUN 16 mg/dL (7-18); CO2 29.4 mmol/L (21.0-32.0); CREATININE 0.9 mg/dL (0.55-1.02); Chloride 103 mmol/L (98-107); Glucose 98 mg/dL (74-106); Potassium 3.9 mmol/L (3.5-5.1); Sodium 139 mmol/L (136-145)
[2022-03-07 21:41] VITALS: BP 147/93; PULSE 101; RESP 18; O2SAT 99
== END 2022-03-07 21:48 | disposition home or self-care (01) ==
PROVIDERS: Emergency Provider Student in an Organized Health Care Education/Training Program; PCP Internal Medicine
DX: U07.1 COVID-19 (principal)
CPT/HCPCS: 36415; 80048; 99283; 99284

== ENCOUNTER 2023-01-20 10:16 | Emergency (ER) | payer OTHER, SELFPAY ==
[2023-01-20 10:25] VITALS: BP 111/81; PULSE 85; RESP 18; TEMP 36.9; O2SAT 99
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
[2023-01-20] MEDS: Cyclobenzaprine 10 MG TAB PO (11:50)
[2023-01-20 12:07] VITALS: BP 121/83; PULSE 89; RESP 16; TEMP 36.4; O2SAT 98
== END 2023-01-20 12:08 | disposition home or self-care (01) ==
PROVIDERS: Emergency Provider Emergency Medicine; PCP Internal Medicine
DX: S30.0XXA Contusion of lower back and pelvis, initial encounter (principal); V89.2XXA Person injured in unspecified motor-vehicle accident, traffic, initial encounter
CPT/HCPCS: 99283; 72110; 99284

== ENCOUNTER 2023-01-29 14:15 | Emergency (ER) | payer OTHER, SELFPAY ==
[2023-01-29] VITALS (38 sets, daily range): BP systolic 111–141; BP diastolic 67–107; PULSE 81–114; RESP 9–43; TEMP 36.4; O2SAT 97–100
[2023-01-29] MEDS: Normal Saline 1,000 ML 1000 ML IV (15:00)
--- NOTE | 2023-01-29 15:00 | RT.EKG_ITS ---
APPROVED REPORT Exam: Resting ECG Reason for Exam: epigastric pain Patient Location: E HR:85 bpm ECG Measurements Heart Rate 85 AXIS LA 194 P -25 QRSd 89 QRS -2 QT 383 T 44 QTc 455 Conclusion Sinus rhythm...normal P axis, V-rate 60- 99
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
[2023-01-29] MEDS: fentaNYL 100 MCG/2 ML VIAL 50 MCG IVP (15:21)
[2023-01-29] MEDS: FAMOTIDINE 20 MG in Normal Saline 100 ML 400 MG IVPB (15:21)
[2023-01-29] MEDS: Ondansetron 4 MG/2 ML VIAL IVP (15:21)
--- NOTE | 2023-01-29 15:30 | DI.US_ITS ---
Exam(s) US ABDOMEN LIMITED EXAM: US ABDOMEN LIMITED CLINICAL HISTORY: RUQ TECHNIQUE: Ultrasound abdomen performed using standard protocol. COMPARISON: CT CT ABDOMEN PELVIS WO from 08/10/2019 FINDINGS: LIVER: Normal size. Normalechogenicity. No focal liver lesions are seen.. GALLBLADDER: Multiple small mobile gallstones. No evidence of wall thickening. No pericholecystic fl uid identified. CARLOS'S SIGN: Negative. BILIARY SYSTEM: No intrahepatic or extrahepatic biliary ductal dilation. RIGHT KIDNEY: Normal size. No evidence of renal calculi. No evidence of hydronephrosis. No suspicious renal mass. No cyst identified. PANCREAS: Normal where visualized. ABDOMINAL AORTA AND IVC: Visualized portions normal caliber. ASCITES: None seen. IMPRESSION: Cholelithiasis. No evidence of acute cholecystitis or biliary dilatation. DATA REPOSITORY:
[2023-01-29 15:40] LABS: Bilirubin Negative (Negative); Blood Negative (Negative); Clarity Clear (Clear); Glucose Negative (Negative); Ketones 80 mg/dL (Negative); Leukocyte Esterase Negative (Negative); Nitrite Negative (Negative); Urobilinogen 0.2 mg/dL (Up to 0.2); pH 8.5 (5-8)
[2023-01-29 15:49] LABS: Abs Immature Grans 0.02 10^3/uL (0.0-0.06); Absolute Basophil Count 0.01 10^3/uL (0.0-0.2); Absolute Eosinophil Count 0.06 10^3/uL (0.0-0.7); Absolute Lymphocyte Count 1.11 10^3/uL (1.2-3.4); Absolute Monocyte Count 0.42 10^3/uL (0.1-0.8); Absolute Neutrophil Count 6.26 10^3/uL (1.2-6.7); Basophils % 0.1; Eosinophils % 0.8; Immature Grans % 0.3; Lymphocytes % 14.1; MCH 27.6 pg (27.0-33.0); MCHC 34.1 % (32.0-36.0); MCV 81 fL (80-95); MPV 10.7 fL (8.0-11.0); Monocytes % 5.3; Neutrophils % 79.4; Platelet Count 227 10^3/uL (130-400); RBC 5.07 10^6/uL (3.93-5.22); RDW 12.3 % (11.7-14.6); RDW-SD 35.8 fL; WBC 7.88 10^3/uL (4.4-10.8)
--- NOTE | 2023-01-29 15:54 | W.ED.GENAD ---
Discharge Plan Disposition Patient Disposition: Home Condition: Stable Discharge Details Clinical Impression: Right sided abdominal pain, Biliary colic, Polyp of rectum Primary Care Provider: Martin Raya ED Provider: Gigi Cabrera Home Meds and New Rx's Prescriptions: Continued levothyroxine [Levoxyl] 125 MCG tablet 100 mcg PO DAILY liothyronine 5 MCG tablet 5 mcg PO BID epinephrine 0.3 MG/SYR auto-injector 0.3 mg IM PRN PRN Patient Comments: not used recently metformin 500 mg tablet 500 mg PO DAILY Patient Comments: TAKE ONE TABLET BY MOUTH EVERY DAY hydroxyzine HCl 10 mg tablet 10 mg PO QHS Patient Comments: TAKE 1 TO 2 TABLETS BY MOUTH 30 MIN BEFORE AT BEDTIME NEEDED FOR SLEEP Trintellix 10 mg tablet 10 mg DAILY Wegovy 2.4 mg/0.75 mL pen injector 2.4 mg SUBCUT QWEEK Discontinued cyclobenzaprine 10 mg tablet 10 mg PO TID PRNQty: 20 0RF Patient Comments: not taking No Action ondansetron 4 mg tablet,disintegrating 4 mg PO Q8H Qty: 20 6RF Discharge Instructions Instructions: Ondansetron (By mouth), Biliary Colic (ED), Abdominal Pain (ED) Additional Instructions: CT findings revealed rectal wall thickening as well as polyp in the rectum. Please be sure to follow-up with your primary care physician and general surgery regarding this. Ultrasound of your right upper abdomen and CT imaging revealed gallstones. Please maintain a diet low in fatty food to reduce risk of biliary colic. Please follow-up with general surgery. Call to schedule an appointment. Please contact your primary care physician to arrange follow-up. Return to the ER immediately for any worsening or new concerning symptoms. Referrals: [facility] [Provider Group] Martin Raya [Primary Care Provider] - Discharge Data Discharge Date/Time-TO BE ENTERED AT DEPARTURE: 01/29/23 18:49 Medical Decision Making <ANA Ratliff - Last Filed: 01/31/23 10:08> 52-year-old female with past medical history of hypothyroidism presents with nausea vomiting and diarrhea, onset 7 AM this morning acutely Given tachycardia and clinical exam, CT abdomen and pelvis and diagnostic labs were ordered 1 L of normal saline, Zofran, and fentanyl were initiated EKG secondary to nausea, age was ordered Care be transitioned to Dr. Gigi Cabrera pending diagnostic imaging and diagnostic lab interpretation and review@1600 Ultrasound with gallstones without evidence of acute cholecystitis and no dilation of the CBD per anesthesiology technologist, pending official review <Gigi Cabrera MD - Last Filed: 02/03/23 14:24> Date: 01/29/23 Time: 18:20 Note: Patient seen, examined, and discussed with ANA Barragan. I agree with treatment plan as discussed/documented. Care was signed out to me with plan to follow-up on CT of the abdomen pelvis. CT abdomen pelvis was interpreted by radiology: Fluid in the rectum. Rectal wall thickening suspicious for inflammation. Probable rectal polyp. Patient reassessed and continued to have abdominal discomfort. Acetaminophen IV 500 mg was ordered. Patient did note some improvement in pain. I called and consulted Dr. Guallpa, discussed ED presentation and course, she reviewed diagnostic studies and evaluated the patient and recommends discharge with outpatient follow-up for likely biliary colic -- she does note gallbladder will need to be removed electively. All results were discussed with the patient. Recommended outpatient follow-up reviewed. Disposition decision was made weighing the risks and benefits of hospitalization versus outpatient treatment, the risk for further decompensation, and the patient's wishes. The patient was stable and requested discharge. Prior to discharge, my usual and customary return precautions were reviewed with the patient - this included follow-up instructions and reason to return to the emergency department if condition worsens, does not improve as expected, or other new concerns arise. HPI <ANA Ratliff - Last Filed: 01/31/23 10:08> General Date/Time Provider Initiated Documentation: 01/29/23 14:27. HPI Narrative: This 52-year-old female presents with report of nausea, vomiting, diarrhea with right upper quadrant and right lower quadrant pain, no rebound or guarding. Denies any chest pain or shortness of breath. Denies any blood in vomitus or stool. Denies spoiled food exposure. Denies any urinary complaints. Denies chance of . Denies recent camping or exotic travel. Related Data Home Medications Medication Instructions Recorded Confirmed epinephrine 0.3 mg/0.3 mL 0.3 mg IM PRN PRN 04/19/15 02/02/23 injection, auto-injector levothyroxine 125 mcg tablet 100 mcg PO DAILY 04/19/15 02/02/23 (Levoxyl) liothyronine 5 mcg tablet 5 mcg PO BID 04/19/15 02/02/23 hydroxyzine HCl 10 mg tablet 10 mg PO QHS 01/20/23 02/02/23 metformin 500 mg tablet 500 mg PO DAILY 01/20/23 02/02/23 semaglutide (weight loss) 2.4 2.4 mg subcut QWEEK 01/20/23 02/02/23 mg/0.75 mL subcutaneous pen injector (Wegovy) vortioxetine 10 mg tablet 10 mg DAILY 01/20/23 02/02/23 (Trintellix) ondansetron 4 mg disintegrating 4 mg PO Q8H #20 tabs 02/02/23 02/02/23 tablet Previous Rx's Medication Instructions Recorded ondansetron 4 mg disintegrating 4 mg PO Q8H #20 tabs 02/02/23 tablet Allergies Allergy/AdvReac Type Severity Reaction Status Date / Time azithromycin Allergy Severe Anaphylaxis Unverified 02/02/23 13:53 codeine Allergy Severe Anaphylaxis Unverified 02/02/23 13:53 honey Allergy Severe Anaphylaxis Unverified 02/02/23 13:53 morphine Allergy Severe Anaphylaxis Unverified 02/02/23 13:53 prednisone Allergy Severe Anaphylaxis Unverified 02/02/23 13:53 Sulfa (Sulfonamide Allergy Severe Anaphylaxis Unverified 02/02/23 13:53 Antibiotics) sulfamethoxazole Allergy Severe Anaphylaxis Unverified 01/29/23 14:26 [From Bactrim] trimethoprim [From Bactrim] Allergy Severe Anaphylaxis Unverified 01/29/23 14:26 venom-honey bee Allergy Severe Anaphylaxis Unverified 02/02/23 13:53 [bee venom (honey bee)] Penicillins Allergy Unverified 01/29/23 14:26 General Stated Complaint: Abd Prob JOHN: 3 PFSH <ANA Ratliff - Last Filed: 01/31/23 10:08> All Active Problems (Updated 02/02/23 @ 18:09 by Tenisha Guallpa DO) Abnormal CT of the abdomen (Acute) pt was having diarrhea at the time Needs CE once GB out Calculus of gallbladder with chronic cholecystitis (Acute) Weight loss due to medication (Acute) Herniated disc, cervical (Acute) 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 Hypothyroidism (Chronic) Cervical neuralgia (Acute) Discharge planning issues (Acute) DVT prophylaxis (Acute) Chest pain (Acute) Social History Smoking/Tobacco Use Status: Never Smoking risk assessment performed?: Yes Alcohol Intake: current Alcohol Intake frequency: holidays/special occasions only Alcohol type: other Drug use: Never Substance use type: does not use Do you feel safe at home: Yes Do you feel safe in your relationship?: Yes History History Para 3 Hx # Term Pregnancies Multiple births Hx # Pregnancies Ectopic pregnancies AB induced Hx Number of Living Children AB spontaneous Exam <ANA Ratliff - Last Filed: 01/31/23 10:08> Narrative Exam Narrative: Patient appears ill, she is pale, she is alert and oriented, no scleral icterus, moist mucous membranes, no respiratory distress, cardiac rate rhythm within normal limits, right upper quadrant and right lower quadrant tenderness, no rebound, guarding right lower quadrant no CVA tenderness, Course <ANA Ratliff - Last Filed: 01/31/23 10:08> Vital Signs Vital signs: Vital Signs Temperature 36.4 C L 01/29/23 14:20 Pulse 114 H 01/29/23 14:20 Respiratory Rate 16 01/29/23 14:20 Blood Pressure 141/82 H 01/29/23 14:20 Pulse Oximetry 100 01/29/23 14:20 Temperature 36.4 C L 01/29/23 14:20 Pulse 114 H 01/29/23 14:20 Respiratory Rate 16 01/29/23 14:20 Respiratory Effort Normal 01/29/23 14:24 Blood Pressure 141/82 H 01/29/23 14:20 Blood Pressure Position Sitting 01/29/23 14:20 Pulse Oximetry 100 01/29/23 14:20 Oxygen Delivery Method Room Air 01/29/23 14:20 Oxygen Flow Rate 0 01/29/23 14:20 Pain Level 7 01/29/23 14:43 Lab/Test Results Lab/Test Results: Laboratory Tests Range/Units 01/29/23 01/29/23 14:58 15:32 WBC (4.4-10.8) 10^3/uL 7.88 RBC (3.93-5.22) 10^6/uL 5.07 Hgb (11.2-15.7) g/dL 14.0 Hct (36.0-46.0) % 41.0 MCV (80-95) fL 81 MCH (27.0-33.0) pg 27.6 MCHC (32.0-36.0) % 34.1 RDW (11.7-14.6) % 12.3 Plt Count (130-400) 10^3/uL 227 MPV (8.0-11.0) fL 10.7 Immature Gran % 0.3 Neutrophils % 79.4 Lymphocytes % 14.1 Monocytes % 5.3 Eosinophils % 0.8 Basophils % 0.1 Nucleated RBC % (0.0-0.3) % 0.0 Absolute Neutrophils (1.2-6.7) 10^3/uL 6.26 Absolute Lymphocytes (1.2-3.4) 10^3/uL 1.11 L Absolute Monocytes (0.1-0.8) 10^3/uL 0.42 Absolute Eosinophils (0.0-0.7) 10^3/uL 0.06 Absolute Basophils (0.0-0.2) 10^3/uL 0.01 Urine Color (Yellow) Yellow Urine Clarity (Clear) Clear Urine pH (5-8) 8.5 H Ur Specific [place] (1.005-1.025) 1.020 Urine Protein (Negative) mg/dL Negative Urine Ketones (Negative) mg/dL 80 H Urine Blood (Negative) Negative Urine Nitrite (Negative) Negative Urine Bilirubin (Negative) Negative Urine Urobilinogen (Up to 0.2) mg/dL 0.2 Ur Leukocyte Esterase (Negative) Negative Urine Glucose (Negative) mg/dL Negative Sign Out <ANA Ratliff - Last Filed: 01/31/23 10:08> Sign Out Data: Sign Out Comment: pending ct scan, fluids, reassessment Last updated by Zahira Barragan PA at 01/29/23 16:25
[2023-01-29 16:08] LABS: ALT 67 U/L (14-59); AST 63 U/L (15-37); Albumin 3.8 g/dL (3.4-5.0); Alkaline Phosphatase 86 U/L (46-116); Anion Gap 11.9 mmol/L (3-11); BUN 10 mg/dL (7-18); Bilirubin, Total 0.5 mg/dL (0.2-1.0); CO2 24.1 mmol/L (21.0-32.0); CREATININE 0.7 mg/dL (0.55-1.02); Calcium 9.4 mg/dL (8.5-10.1); Chloride 106 mmol/L (98-107); Estimated GFR 102.71 (mL/min/1.73m2); Glucose 90 mg/dL (74-106); Magnesium 1.7 mg/dL (1.8-2.4); Potassium 3.6 mmol/L (3.5-5.1); Sodium 142 mmol/L (136-145); Total Protein 7.3 g/dL (6.4-8.2)
[2023-01-29] MEDS: Normal Saline - Diluent 50 ML VIAL IJ (16:17)
[2023-01-29] MEDS: Omnipaque 350 MG/ML 100 ML BTL IJ (16:19)
[2023-01-29] MEDS: Normal Saline Flush 10 ML SYR IVP (16:20)
[2023-01-29] MEDS: Lactated Ringers 1,000 ML 1000 ML IV (16:30)
[2023-01-29 17:52] LABS: Lipase 25 U/L (16-77)
[2023-01-29] MEDS: Ondansetron O.D.T. 4 MG TABEF, 3 TABS/BTL PO (18:48)
== END 2023-01-29 18:49 | disposition home or self-care (01) ==
PROVIDERS: Physician Assistant; Emergency Provider Student in an Organized Health Care Education/Training Program; PCP Internal Medicine
DX: R10.31 Right lower quadrant pain (principal); R10.11 Right upper quadrant pain; R10.13 Epigastric pain; K80.50 Calculus of bile duct without cholangitis or cholecystitis without obstruction; K62.1 Rectal polyp
CPT/HCPCS: 80053; 83690; 93005; 96361; 96374; 96375; 99285; 74177; 76705; 81003; 83735; 85025; 93010; 99284; J0131; J2405; J3010; J3490

== ENCOUNTER 2023-02-02 14:57 | Outpatient (REF) | payer OTHER, SELFPAY ==
[2023-02-02 15:17] LABS: Abs Immature Grans 0.01 10^3/uL (0.0-0.06); Absolute Basophil Count 0.02 10^3/uL (0.0-0.2); Absolute Eosinophil Count 0.17 10^3/uL (0.0-0.7); Absolute Lymphocyte Count 1.29 10^3/uL (1.2-3.4); Absolute Monocyte Count 0.32 10^3/uL (0.1-0.8); Basophils % 0.4; Eosinophils % 3.7; HCT 40.1 % (36.0-46.0); HGB 13.3 g/dL (11.2-15.7); Immature Grans % 0.2; MCH 27.9 pg (27.0-33.0); MCHC 33.2 % (32.0-36.0); MCV 84 fL (80-95); MPV 10.8 fL (8.0-11.0); Monocytes % 6.9; Neutrophils % 60.8; Platelet Count 209 10^3/uL (130-400); RBC 4.76 10^6/uL (3.93-5.22); RDW 12.5 % (11.7-14.6); RDW-SD 38.1 fL; WBC 4.61 10^3/uL (4.4-10.8)
[2023-02-02 15:31] LABS: ALT 44 U/L (14-59); AST 15 U/L (15-37); Albumin 3.7 g/dL (3.4-5.0); Alkaline Phosphatase 78 U/L (46-116); Anion Gap 8.8 mmol/L (3-11); BUN 10 mg/dL (7-18); Bilirubin, Total 0.4 mg/dL (0.2-1.0); C-Reactive Protein 0.61 mg/dL (0.0-0.3); CO2 28.2 mmol/L (21.0-32.0); CREATININE 0.7 mg/dL (0.55-1.02); Calcium 9.1 mg/dL (8.5-10.1); Chloride 103 mmol/L (98-107); Estimated GFR 102.71 (mL/min/1.73m2); Glucose 89 mg/dL (74-106); Potassium 3.7 mmol/L (3.5-5.1); Sodium 140 mmol/L (136-145); Total Protein 7.2 g/dL (6.4-8.2)
[2023-02-02 15:49] LABS: D-Dimer 363 ng/mlFEU (<500)
== END 2023-02-02 14:58 | disposition home or self-care (01) ==
LOC: LBN 14:57
PROVIDERS: PCP Internal Medicine; Visit Provider Surgery
DX: E03.9 Hypothyroidism, unspecified (principal); I26.99 Other pulmonary embolism without acute cor pulmonale; K62.1 Rectal polyp; K75.9 Inflammatory liver disease, unspecified; K80.20 Calculus of gallbladder without cholecystitis without obstruction; K80.50 Calculus of bile duct without cholangitis or cholecystitis without obstruction; R10.9 Unspecified abdominal pain; R53.81 Other malaise; R53.83 Other fatigue; I42.9 Cardiomyopathy, unspecified; I63.9 Cerebral infarction, unspecified; R79.89 Other specified abnormal findings of blood chemistry; S30.0XXA Contusion of lower back and pelvis, initial encounter; X58.XXXA Exposure to other specified factors, initial encounter
CPT/HCPCS: 80053; 85025; 85379; 86140

== ENCOUNTER 2023-02-12 02:20 | Outpatient (CLI) | payer OTHER, SELFPAY ==
--- NOTE | 2023-02-12 15:05 | DI.US_ITS ---
APPROVED REPORT EXAM: Comprehensive 2D, Doppler, and color-flow Echocardiogram Patient Location: Out-Patient Cinder Man: Lucy Dyer RDCS (AE) Indications: [employer], gallstones, history of PE/DVT, CVA, malaise Conclusion Normal left ventricular wall thickness and chamber size. Ejection fraction 60 to 65%. Wall motion i s normal Normal right ventricular size and systolic function Both atria are normal in size There is no structural or hemodynamically significant valvular disease Mildly dilated ascending aorta measuring 3.76 cm Normal estimated right ventricular systolic pressure 21 mmHg Wall motion Left Ventricle The left ventricle is normal size. The left ventricular systolic function is normal. The left ventric ular ejection fraction is within the normal range. There is normal left ventricular wall thickness. T here is normal LV segmental wall motion. There is no ventricular septal defect visualized. LVEF is 60 -65%. Right Ventricle The right ventricle is normal size. The right ventricular systolic function is normal. The RVSP is 21 .0 mmHg. Atria The left atrium size is normal. The right atrium size is normal. The interatrial septum is intact wit h no evidence for an atrial septal defect. Aortic Valve The aortic valve is normal in structure. Aortic valve is trileaflet. There is no aortic valvular sten osis. No aortic regurgitation is present. Mitral Valve The mitral valve is normal in structure. No evidence of mitral valve stenosis. Trace mitral regurgita tion. Tricuspid Valve The tricuspid valve is normal in structure. There is no tricuspid valve stenosis. Trivial tricuspid r egurgitation. Pulmonic Valve The pulmonary valve is normal in structure. There is no pulmonic valvular stenosis. Trivial pulmonic regurgitation. Great Vessels The aortic root is normal in size. The ascending aorta is mildly dilated. Aortic arch is normal in ca liber. IVC is normal in size and collapses >50% with inspiration. Pericardium There is no pericardial effusion. 2D Dimensions IVSD d PLAX 0.74 cm F: 0.6-1.0 LV Vol A2C d MOD 87.7 mL LVPW d PLAX 0.73 cm F: 0.6 - 1.0 LV Vol A4C d MOD 78.9 mL LVID d PLAX 4.02 cm F: 3.8 - 5.2 LA vol/ BSA A2C s A-L 21.2 mL/m2 LVDs 2.60 cm F: 2.2 - 3.5 LA vol/ BSA A4C s A-L 15.5 mL/m2 Ao Root d 3.30 cm F: 2.7 - 3.3 LA Vol/ BSA Biplane s A-L 18.7 mL/m2 RA Area A4C 9.15 cm2 LA Area A4C s MOD 12.93 cm2 RA Vol/ BSA A4C s A-L 10.3 mL/m2 LA Area A2C s MOD 15.53 cm2 Ao Asc Diam d 3.76 cm F: 2.3 - 3.1 LV EF A4C MOD 60.7 % LV EF Teichholz 64.4 % LV EF A2C MOD 59.1 % LVEF (Khan's) 59.07 % F: 54 - 74 LV EF Biplane MOD 59.1 % LV Volume 64.40 mL F: 46 - 106 SV 50.47 mL LV Volume Index 32.69 mL/m2 F: 29 - 61 SV Index 25.62 mL/m2 LV Vol Biplane MOD 85.4 mL FS 34.65 % M-Mode TAPSE 2.47 cm (M/F) >1.7 LV Diastology MV E' medial 0.156 (>0.07 m/s) E/A Ratio 0.8 LV E/e MED 5.50 (<14) MV E Vmax 0.87 (0.4-1.3 m/s) MV E' lateral 0.178 (>0.1 m/s) MV A Vmax 1.10 (0.4-1.3 m/s) LV E/e LAT 4.85 (<14) MV E/A Ratio 0.79 MV E/E' medial 5.55 MV E/E' lateral 4.86 Aortic Valve LVOT Area 3.62 cm2 AoV Area Vmax 2.75 cm2 LVOT Vmax 1.11 m/s AoV Area/ BSA (Vmax) 1.40 cm2/m2 LVOT Mean Simon. 0.66 m/s SAMMIE Mean Simon. 2.49 cm2 LVOT Peak Grad 4.9 mmHg SAMMIE Mean Simon. Index 1.26 cm2/m2 LVOT Mean Grad 2.2 mmHg LVOT VTI 0.206 m LVOT Diam s 2.10 cm AoV Vmax 1.46 m/s Velocity Ratio 0.76 AoV Mean Simon. 0.97 m/s AoV Peak Grad 8.5 mmHg LVOT SV 74.72 mL AoV Mean Grad 4.4 mmHg AoV VTI 0.256 m AoV Area VTI 2.92 cm2 AoV Area/ BSA (VTI) 1.48 cm/m2 Mitral Valve MV DT 321 (160-240 msec) MV PHT 93 msec MV Area PHT 2.37 cm2 MV VTI 0.222 m MV Area VTI 3.37 (4.0-6.0 cm2) Pulmonary Valve PV Vmax 1.01 (0.5-1.5 m/s) RVOT Peak Gr. 2.94 mmHg PV Peak Grad 4.1 mmHg RVOT Mean Gr. 1.55 mmHg PV Mean Grad 2.3 mmHg RVOT VTI 0.194 m PV VTI 0.217 m RVOT Vmax 0.86 m/s Tricuspid Valve TR Peak Grad 17.9 mmHg TR Vmax 2.12 m/s RA Pressure 3.00 mmHg RVSP (TR) 21.0 mmHg
== END 2023-02-12 02:40 ==
LOC: DI 02:20
PROVIDERS: PCP Internal Medicine; Visit Provider Surgery
DX: E03.9 Hypothyroidism, unspecified (principal); I26.99 Other pulmonary embolism without acute cor pulmonale; I42.9 Cardiomyopathy, unspecified; I63.9 Cerebral infarction, unspecified; K62.1 Rectal polyp; K75.9 Inflammatory liver disease, unspecified; K80.10 Calculus of gallbladder with chronic cholecystitis without obstruction; K80.20 Calculus of gallbladder without cholecystitis without obstruction; K80.50 Calculus of bile duct without cholangitis or cholecystitis without obstruction; M50.20 Other cervical disc displacement, unspecified cervical region; M54.12 Radiculopathy, cervical region; R10.9 Unspecified abdominal pain; R53.81 Other malaise; R53.83 Other fatigue; R63.4 Abnormal weight loss; R79.89 Other specified abnormal findings of blood chemistry; T50.905A Adverse effect of unspecified drugs, medicaments and biological substances, initial encounter
CPT/HCPCS: 93306

== ENCOUNTER 2023-02-20 06:15 | Day surgery (SDC) | payer OTHER, SELFPAY ==
[2023-02-20] VITALS (11 sets, daily range): BP systolic 79–112; BP diastolic 41–83; PULSE 65–86; RESP 7–16; TEMP 35.9–36.6; O2SAT 92–100; BMI 29.9
[2023-02-20] MEDS: Lactated Ringers 1,000 ML 80 ML IV ×2 (07:05→10:01)
[2023-02-20] MEDS: Acetaminophen 500 MG TAB 1000 MG PO (07:10)
[2023-02-20] MEDS: Gabapentin 300 MG CAP 600 MG PO (07:10)
--- NOTE | 2023-02-20 07:30 | ANES.PREOP_ITS ---
General Info Date of Service Date Performed: 02/20/23 Height: 5 ft 7 in Weight: 86.8 kg Body Mass Index (BMI): 29.9 Surgical Procedure: Operation Date: 02/20/23 07:40 Proposed Procedure Side Surgeon p Cholecystectomy Laparoscopic, Possible Open, Possible Cholangiogram Raimundo Fish MD Meds Allergies and Home Medications Allergies Allergy/AdvReac Type Severity Reaction Status Date / Time azithromycin Allergy Severe Anaphylaxis Unverified 02/20/23 06:37 codeine Allergy Severe Anaphylaxis Unverified 02/20/23 06:37 honey Allergy Severe Anaphylaxis Unverified 02/20/23 06:37 morphine Allergy Severe Anaphylaxis Unverified 02/20/23 06:37 prednisone Allergy Severe Anaphylaxis Unverified 02/20/23 06:37 Sulfa (Sulfonamide Allergy Severe Anaphylaxis Unverified 02/20/23 06:37 Antibiotics) sulfamethoxazole Allergy Severe Anaphylaxis Unverified 02/20/23 06:37 [From Bactrim] trimethoprim [From Bactrim] Allergy Severe Anaphylaxis Unverified 02/20/23 06:37 venom-honey bee Allergy Severe Anaphylaxis Unverified 02/20/23 06:37 [bee venom (honey bee)] Penicillins Allergy Other (See Unverified 02/20/23 06:37 Comment) Home Medication Medication Instructions Recorded epinephrine 0.3 mg/0.3 mL 0.3 mg IM PRN PRN 04/19/15 injection, auto-injector levothyroxine 125 mcg tablet 100 mcg PO DAILY 04/19/15 (Levoxyl) liothyronine 5 mcg tablet 5 mcg PO BID 04/19/15 hydroxyzine HCl 10 mg tablet 10 mg PO QHS 01/20/23 metformin 500 mg tablet 500 mg PO DAILY 01/20/23 semaglutide (weight loss) 2.4 2.4 mg subcut QWEEK 01/20/23 mg/0.75 mL subcutaneous pen injector (Wegovy) vortioxetine 10 mg tablet 10 mg DAILY 01/20/23 (Trintellix) ondansetron 4 mg disintegrating 4 mg PO Q8H #20 tabs 02/02/23 tablet biotin 10,000 mcg chewable tablet 10,000 mcg PO DAILY 02/17/23 (Hair, Skin and Nails (biotin)) cyanocobalamin (vitamin B-12) 1,000 mcg PO DAILY 02/17/23 1,000 mcg tablet folic acid 1 mg tablet 1 mg PO DAILY 02/17/23 omega-3 fatty acids 1 cap PO DAILY 02/17/23 Current Visit Medications: Current Medications Generic Name Dose Route Start Last Admin Trade Name Rebeca PRN Reason Stop Dose Admin Acetaminophen 1,000 mg 02/20/23 06:00 02/20/23 07:10 Acetaminophen 500 Mg Tab PO 02/20/23 16:00 1,000 mg PREOP NELLIE Administration Gabapentin 600 mg 02/20/23 06:00 02/20/23 07:10 Gabapentin 300 Mg Cap PO 02/20/23 16:00 600 mg PREOP NELLIE Administration Ringer's Solution 1,000 mls @ 80 mls/hr 02/20/23 06:00 02/20/23 07:05 IV 03/21/23 23:59 80 mls/hr INFUSION NELLIE Administration Cefazolin Sodium/Dextrose 2 gm in 50 mls @ 100 mls/hr 02/20/23 06:00 Ancef Duplex IVPB 02/20/23 16:00 PREOP NELLIE IV Miscellaneous Supplies 1 each 02/20/23 06:00 Iv Access IV 03/21/23 23:59 DIRECTED NELLIE Sodium Chloride 0 ml 02/20/23 06:00 Normal Saline Flush 10 Ml Syr IV 03/21/23 23:59 PRN PRN Sodium Chloride 0 ml 02/20/23 06:00 Normal Saline 10 Ml Vial IJ 03/21/23 23:59 DIRECTED PRN Sterile Water 0 ml 02/20/23 06:00 Water,Injection,Sterile 10 Ml Vial IJ 03/21/23 23:59 DIRECTED PRN PFSH Active Problems Active Problems: Problem Status Onset Code Abnormal CT of the abdomen R93.5 Calculus of gallbladder with chronic cholecystitis K80.10 Weight loss due to medication R63.4, T50.905A Herniated disc, cervical M50.20 CVA (cerebral vascular accident) I63.9 Cardiomyopathy I42.9 Elevated LFTs R79.89 Gallstones without obstruction of gallbladder K80.20 Malaise and fatigue R53.81, R53.83 COVID-19 U07.1 Right sided abdominal pain R10.9 Biliary colic K80.50 Polyp of rectum K62.1 Pulmonary embolus, right I26.99 Hypothyroidism E03.9 Cervical neuralgia M54.12 Discharge planning issues Z02.9 DVT prophylaxis Z29.9 Chest pain R07.9 Medical History Medical History Comments:: Severe alergies, sulfa drugs, unsure about pcn. Pt has never had ancef Tobacco Smoking/Tobacco Use Status: Never Alcohol Alcohol Intake: current Alcohol intake frequency: holidays/special occasions only Alcohol type: other Substance Use Substance use: Never Substance use type: does not use Prental History History Para 3 Hx # Term Pregnancies Multiple births Hx # Pregnancies Ectopic pregnancies AB induced Hx Number of Living Children AB spontaneous Vital Signs and Lab Results Vital Signs Most Recent Vital Signs in EMR: Most Recent Vital Signs Temp Pulse Resp BP Pulse Ox 36.1 C L 81 16 111/83 98 02/20/23 06:38 02/20/23 06:38 02/20/23 06:38 02/20/23 06:38 02/20/23 06:38 Lab Results Blood Type / Crossmatch: No Data to Display Complete Blood Count: White Blood Count 4.61 10^3/uL (4.4-10.8) 02/02/23 14:54 Red Blood Count 4.76 10^6/uL (3.93-5.22) 02/02/23 14:54 Hemoglobin 13.3 g/dL (11.2-15.7) 02/02/23 14:54 Hematocrit 40.1 % (36.0-46.0) 02/02/23 14:54 Platelet Count 209 10^3/uL (130-400) 02/02/23 14:54 Complete Metabolic Panel: Sodium 140 mmol/L (136-145) 02/02/23 14:54 Potassium 3.7 mmol/L (3.5-5.1) 02/02/23 14:54 Chloride 103 mmol/L (98-107) 02/02/23 14:54 Carbon Dioxide 28.2 mmol/L (21.0-32.0) 02/02/23 14:54 BUN 10 mg/dL (7-18) 02/02/23 14:54 Creatinine 0.7 mg/dL (0.55-1.02) 02/02/23 14:54 Est GFR (CKD-EPI 2020) 102.71 (mL/min/1.73m2) 02/02/23 14:54 Magnesium 1.7 mg/dL (1.8-2.4) L 01/29/23 14:58 Calcium 9.1 mg/dL (8.5-10.1) 02/02/23 14:54 Albumin 3.7 g/dL (3.4-5.0) 02/02/23 14:54 Glucose 89 mg/dL (74-106) 02/02/23 14:54 C-Reactive Protein 0.61 mg/dL (0.0-0.3) H 02/02/23 14:54 Liver Function Panel: Alanine Aminotransferase (ALT/SGPT) 44 U/L (14-59) 02/02/23 14: 54 Aspartate Amino Transf (AST/SGOT) 15 U/L (15-37) 02/02/23 14:54 Coagulation Panel: D-Dimer 363 ng/mlFEU (<500) 02/02/23 14:54 Cardiac Panel: No Data to Display Arterial Blood Gas: No Data to Display Venous Blood Gas: No Data to Display Pancreas Panel: Lipase 25 U/L (16-77) 01/29/23 14:58 Thyroid Panel: No Data to Display Infectious Disease: No Data to Display Blood Cultures: No Data to Display Toxicology Panel: No Data to Display Panel: No Data to Display Anesthesia Assessment and Plan Anesthesia History Personal History: No History of Anesthesia Complications Family History: No Family History of Anesthesia Complications Exercise Tolerance Exercise Tolerance: Metabolic Equivalents>4 Pertinent Negatives Pertinent Negatives: No Symptoms of GERD Cardiac & Pulmonary Exam Cardiac Exam: Normal S1/S2 Heart Sounds Pulmonary Exam: Clear Bilateral Breath Sounds Implantable Cardiac Device Does patient have a Pacemaker or an ICD?: No Airway Exam Known Difficult Airway: No Mallampati Class: 3 Mouth Opening: Narrow (< 3cm) Thyromental Distance: Less than 3 cm Neck Range of Motion: Limited ROM Neck Circumference: Normal Teeth Condition: Normal Dentition ASA Classification ASA Score: ASA 2 Emergency Case?: No NPO Status NPO Status: NPO Clears >2 hours, Solids >8 hours Status Status: Not Relevant due to Medical History Anesthesia Plan Resuscitation Status: Full Code Anesthesia Technique: General Anesthesia Airway Planned: Endotracheal Tube Monitors Used: Standard Monitors
[2023-02-20] MEDS: ceFAZolin 2 GM/50 ML BAG IVPB (07:55)
--- NOTE | 2023-02-20 08:53 | GB_PTH ---
PATIENT: Jermaine Mancera LOC: [facility] U#:[id number] AGE/SX: 52/F ROOM: RE02/20/[address]: Raimundo Fish MD : [id number] BED: DIS: 02/20/2023 SPEC #: [id number] RECD: 02/20/23 12:17 STATUS: SHELBI REQ #: [id number] ADAM: 02/20/23 08:[address]: Raimundo Fish DEPT: Surgical Specimen RECD BY: Zahira Aden ENTERED: 02/20/23 12:17 SP TYPE: GB OTHR DR: Martin Raya Tissues: 1 - GALLBLADDER Procedures: GROSS AND MICRO LEVEL 3 Comments: [id number]
[2023-02-20] MEDS: Bupivacaine 0.25% Pres-Free 30 ML VIAL (08:58)
--- NOTE | 2023-02-20 09:18 | W.PM.DSUDISC ---
Date of service: 02/20/23 Time of Service: 09:18 Discharge Plan Disposition Patient Disposition: Home Condition: Good Discharge Details Reason For Visit: Cholecystectomy Attending Provider: Raimundo Fish Primary Care Provider: Martin Raya Home Meds and New Rx's Prescriptions: Continued ondansetron 4 mg tablet,disintegrating 4 mg PO Q8H Qty: 20 6RF levothyroxine [Levoxyl] 125 MCG tablet 100 mcg PO DAILY liothyronine 5 MCG tablet 5 mcg PO BID epinephrine 0.3 MG/SYR auto-injector 0.3 mg IM PRN PRN Patient Comments: not used recently metformin 500 mg tablet 500 mg PO DAILY Patient Comments: TAKE ONE TABLET BY MOUTH EVERY DAY hydroxyzine HCl 10 mg tablet 10 mg PO QHS Patient Comments: TAKE 1 TO 2 TABLETS BY MOUTH 30 MIN BEFORE AT BEDTIME NEEDED FOR SLEEP Trintellix 10 mg tablet 10 mg DAILY Wegovy 2.4 mg/0.75 mL pen injector 2.4 mg SUBCUT QWEEK cyanocobalamin (vitamin B-12) 1,000 mcg Tablet 1,000 mcg PO DAILY folic acid 1 mg Tablet 1 mg PO DAILY omega-3 fatty acids Capsule 1 cap PO DAILY Hair, Skin and Nails (biotin) 10,000 mcg Tablet,Chewable 10,000 mcg PO DAILY Discharge Instructions Instructions: Laparoscopic Cholecystectomy (GEN) Additional Instructions: 1. Resume all of your medications. 2. Okay to use ice packs and heating pads as needed for pain. 3. Okay to use tylenol and ibuprofen over the counter as needed. Use tramadol as needed for more severe pain. 4. Leave bandage in place for 24 hours, then remove. 5. Shower with warm soapy water. Pat dry. Use a bandaid if needed to protect your clothing. 6. No soaking or tub baths until I see you in the office. 7. No heavy lifting until I see you in the office. 8.Call the office (or go directly to the emergency room after hours) if you notice any of the following: Develop chills (warm to touch), or if you have a thermometer and your temperature is above 101 Difficulty breathing or difficultly swallowing Persistent vomiting Any bleeding ? exceeding one tablespoon 6. Call your physician if the site where your intravenous was started becomes red, swollen, painful, and warm to touch. Activity:: Activity as Tolerated Diet:: As Tolerated DS: Diagnosis Discharge Diagnosis (1) Calculus of gallbladder with chronic cholecystitis: Status: Acute Asessment and Plan: Status postcholecystectomy;
[2023-02-20] MEDS: fentaNYL 100 MCG/2 ML VIAL IVP (09:55)
--- NOTE | 2023-02-20 10:04 | W.ANESPOSTOP ---
Postoperative Evaluation Date, Time and Location Date Performed: 02/20/23 Time Performed: 10:04 Patient Location: PACU Vital Signs Most Recent Imported Vital Signs: Most Recent Vital Signs Temp Pulse Resp BP Pulse Ox 36.6 C 65 9 L 87/45 L 92 02/20/23 09:47 02/20/23 09:47 02/20/23 09:47 02/20/23 09:47 02/20/23 09:47 Pain Score Most Recent Pain Score: Most Recent Pain Score Pain Level 4 02/20/23 09:47 Assessment Mental Status: Arousable with meaningful communication Airway and Respiratory Function: Patent airway with normal (patient baseline) respiratory exam Cardiovascular Function: Hemodynamically Stable Hydration Status: Adequately Hydrated Nausea & Vomiting: No Nausea or Vomiting Pain: Pain is tolerable per patient Peripheral Nerve Block: Patient did not receive a nerve block
[2023-02-20] MEDS: ePHEDrine 25 MG/5 ML Syringe IVP (10:06)
[2023-02-20] MEDS: traMADol 50 MG TAB PO (11:27)
--- NOTE | 2023-02-27 10:23 | ROE_ITS ---
Date of service: 02/20/23 Time of Service: 09:30 Operative Note Operative Note DATE OF PROCEDURE: 02/20/23 PRE-OP DIAGNOSIS: Cholelithiasis with biliary colic POST-OP DIAGNOSIS: same PROCEDURE: Laparoscopic cholecystectomy SURGEON: Raimundo Fish ASSISTING SURGEON: Tiffanie Russ ANESTHESIA TYPE: General LMA/ETT Refer to Anesthesia Record ESTIMATED BLOOD LOSS: 30 PATHOLOGY: other (Gallbladder) COMPLICATIONS: None Patient was transported to: PACU Patient's condition: stable Indications: Jermaine is a 52-year-old woman with several years of postprandial nausea and right upper quadrant pain. She underwent a ultrasound of the right upper quadrant that demonstrated small mobile gallstones, which were thought to be the source of her discomfort. We talked about the risks and benefits of cholecystectomy, and I think she had a good understanding and wished to proceed with cholecystectomy. Procedure Description: After satisfactory induction of general anesthesia, I prepped and draped the abdomen in usual fashion. Next, I began with a periumbilical incision. I dissected down to the fascia and elevated it with Sumanth clamps. I incised it sharply. Next, I passed a 12 mm operating port in the umbilical site. I secured it to the fascia with 0 Vicryl stitches. I then insufflated the peritoneal cavity. Next I inserted a 5 mm 30 degree scope and examined the underlying viscera. There was no evidence of injury created upon entry. I then placed the patient in some reverse Trendelenburg and left side down positioning. Then, with the assistance of the laparoscope, I used local anesthetic to anesthetize the midepigastric and 2 right upper quadrant port sites. Under the vision of the laparoscope, I passed 3 more 5 mm ports. I then grasped the gallbladder fundus and elevated cephalad. I began by dissecting the gallbladder infundibulum. I worked in a lateral to medial fashion. Once I skeletonized the cystic duct and cystic artery, with a satisfactory critical view of safety, I doubly clipped and divided them. I then used electrocautery to dissect the gal lbladder off the gallbladder fossa. I passed the gallbladder into an Endo Catch bag and removed it by way of the umbilical site. I examined the surgical field. It was hemostatic. I then removed the 5 mm ports under the vision of the laparoscope. Finally, I removed the umbilical port site and closed the fascia with Vicryl stitches. Sites were irrigated, and the skin was closed with subcuticular stitches. Bandages were applied, patient was awakened from anesthesia, and transferred to the recovery unit.
== END 2023-02-20 12:30 | disposition home or self-care (01) ==
PROVIDERS: PCP Internal Medicine; Visit Provider Surgery
PROC: 0FT44ZZ Resection of Gallbladder, Percutaneous Endoscopic Approach (ICD-10-PCS; CPT 47562; principal; 2023-02-20 07:30)
DX: K80.10 Calculus of gallbladder with chronic cholecystitis without obstruction (principal)
CPT/HCPCS: 47562; 88304; J0690; J1100; J1885; J2001; J2250; J2405; J2704; J3010

== ENCOUNTER 2023-02-23 13:11 | Emergency (ER) | payer OTHER, SELFPAY ==
[2023-02-23 13:14] VITALS: BP 122/78; PULSE 83; RESP 18; TEMP 36.6; O2SAT 100
--- NOTE | 2023-02-23 13:30 | DI.CT_ITS ---
Exam(s) CT ABDOMEN PELVIS WO EXAM: CT ABDOMEN PELVIS WO CLINICAL HISTORY: right flank pain, hx of stones, recent jaciel. TECHNIQUE: Imaging Protocol: Axial computed tomography images with coronal and sagittal reformatted images were created and reviewed. Oral:/ no COMPARISON: CT CT ABDOMEN PELVIS W from 01/29/2023 FINDINGS: ABDOMEN: Lung Bases: Normal where visualized. Liver: Normal density. No measurable mass. Gallbladder and biliary tract: Status post cholecystectomy. No radiodense calculus or biliary dilati on. Pancreas: Normal density, no abnormal calcifications or inflammatory process. Spleen: Normal. Kidneys: Normal size, contour and axis. No radiodense stones or obstructive uropathy. No masses seen. Adrenal glands: No masses seen. Lymph nodes: Within normal limits. Abdominal Aorta: Abdominal portion non-dilated. Soft tissues: Mild stranding in the right upper quadrant and periumbilical fracture rule related to r ecent laparoscopic cholecystectomy. PELVIS: Bladder: Symmetric distention, no gross wall thickening. Bowel: No obstruction or bowel wall thickening. The appendix is retrocecal and projects cephalad, esme r the inferior right lobe of the liver. It is mildly dilated. There is some surrounding stranding. This could represent early appendicitis versus postsurgical changes. Peritoneal cavity: Trace fluid low in the pelvis. No focal collection. Mild right upper quadrant st randing. Reproductive organs: Within normal limits. Bones: Within normal limits. IMPRESSION: Status post cholecystectomy. Mild right upper quadrant stranding consistent with postsurgical change s. The appendix is in area and appears slightly dilated. Early appendicitis not excluded. Findings called to Laurel Portillo of the emergency department. RADIATION DOSE DELIVERED: Total DLP DATA REPOSITORY: All CT scans at this facility are submitted to the National Radiology Data Registry (NRDR) Dose Index Registry (DIR) with the [employer] (ACR). RADIATION OPTIMIZATION: All CT scans at this facility use at least one of these dose optimization te chniques: automated exposure control; mA and/or kV adjustment per patient size (includes targeted exa ms where dose is matched to clinical indication); or iterative reconstruction.
--- NOTE | 2023-02-23 13:37 | W.ED.GENAD ---
Discharge Plan Disposition Patient Disposition: Home Condition: Good Discharge Details Clinical Impression: Dysuria, UTI (urinary tract infection) Primary Care Provider: Martin Raya ED Provider: Ross Crump Home Meds and New Rx's Prescriptions: No Action ondansetron 4 mg tablet,disintegrating 4 mg PO Q8H Qty: 20 6RF levothyroxine [Levoxyl] 125 MCG tablet 100 mcg PO DAILY liothyronine 5 MCG tablet 5 mcg PO BID epinephrine 0.3 MG/SYR auto-injector 0.3 mg IM PRN PRN Patient Comments: not used recently metformin 500 mg tablet 500 mg PO DAILY Patient Comments: TAKE ONE TABLET BY MOUTH EVERY DAY hydroxyzine HCl 10 mg tablet 10 mg PO QHS Patient Comments: TAKE 1 TO 2 TABLETS BY MOUTH 30 MIN BEFORE AT BEDTIME NEEDED FOR SLEEP Trintellix 10 mg tablet 10 mg DAILY Wegovy 2.4 mg/0.75 mL pen injector 2.4 mg SUBCUT QWEEK cyanocobalamin (vitamin B-12) 1,000 mcg Tablet 1,000 mcg PO DAILY folic acid 1 mg Tablet 1 mg PO DAILY omega-3 fatty acids Capsule 1 cap PO DAILY Hair, Skin and Nails (biotin) 10,000 mcg Tablet,Chewable 10,000 mcg PO DAILY tramadol 50 mg tablet 50 mg PO Q8H PRNQty: 9 0RF Rx Instructions: Take 1 tablet by mouth up to every 8 hours if needed for severe pain. Be careful with this medication as it can be addictive. Do not drive while using this medication. Discharge Instructions Instructions: Dysuria (ED) Additional Instructions: At this time your laboratory work-up has returned relatively normal. There is no signs of infection on your blood work. Your urinalysis shows questionable mild urinary infection. The CAT scan is slightly atypical and does show minimal irritation of the appendix. However upon review by the surgeon he does not feel that this is sales representative facility services of appendicitis at this time. We have given you an antibiotic as a single dose which should cover the urinary tract infection. Please follow-up closely with your surgeon on an outpatient basis for reassessment. If your abdominal pain does change or worsen please return immediately for reassessment. If you notice any worsening of your symptoms, or any new symptoms such as vomiting, diarrhea, fever, chills, shortness of breath, chest pain, numbness, weakness, or fainting , please return immediately to the emergency department for reevaluation. Please follow up with your primary care provider as soon as possible for reassessment and reevaluation. As always, it was a pleasure participating in your medical care today. Referrals: Martin Raya [Primary Care Provider] - Raimundo Fish MD [ [facility] STAFF PHYSICIAN] - Discharge Data Discharge Date/Time-TO BE ENTERED AT DEPARTURE: 02/23/23 14:58 Medical Decision Making This is a pleasant 52-year-old female with past medical history of recent cholecystectomy 3 to 4 days ago, Takotsubo's cardiomyopathy, previous pulmonary embolism, previous transaminitis, previous kidney stones, who presents today for evaluation of right flank pain. Patient states that on Thursday which was yesterday she developed frequency and mild burning with urination, and eventually developed mild right flank pain. It is continued and not improved. She denies fever or chills. No other complaints at this time. Exam demonstrates postoperatively appropriate incision sites which are clean dry and intact. Mild generalized tenderness, mild right CVA tenderness. Concern is for kidney stone and/or UTI, less likely but still potential is postoperative complication. Patient does not want anything for pain. With a history of kidney stones, and recent surgery we will get a CT scan, gently rehydrate, evaluate for concerning etiology, monitor closely and reassess. 4 PM Laboratory work-up is returned normal, no white count bandemia or left shift. Urinalysis demonstrates questionable UTI. We will give a dose of fosfomycin here. CT scan shows evidence of status postcholecystectomy, mild right upper quadrant stranding consistent with postsurgical changes, the appendix is also in this area and appears slightly dilated. Questionable early appendicitis. Patient was consulted for Dr. Fish, he came and evaluated the patient personally. After review the images he does not feel that this is evidence of clinical appendicitis. I discussed this with the patient, and at this time the plan is that the patient will be discharged home with close follow-up on an outpatient basis. I discussed red flags for which to emergently return. Patient and family understand. I have extensively reviewed the treatment plan and discharge instructions with the patient and their family. I have addressed all patient concerns at this time. The patient and family was made aware of what symptoms to monitor for that would warrant a return to the emergency department. Discussed the plan with the patient and family, they demonstrate verbal understanding and agreement with our assessment and plan at this time. The documentation in this chart was dictated using [employer] dictation software. Please excuse any dictation errors. FINDINGS: ABDOMEN: Lung Bases: Normal where visualized. Liver: Normal density. No measurable mass. Gallbladder and biliary tract: Status post cholecystectomy. No radiodense calculus or biliary dilation. Pancreas: Normal density, no abnormal calcifications or inflammatory process. Spleen: Normal. Kidneys: Normal size, contour and axis. No radiodense stones or obstructive uropathy. No masses seen. Adrenal glands: No masses seen. Lymph nodes: Within normal limits. Abdominal Aorta: Abdominal portion non-dilated. Soft tissues: Mild stranding in the right upper quadrant and periumbilical fracture rule related to recent laparoscopic cholecystectomy. PELVIS: Bladder: Symmetric distention, no gross wall thickening. Bowel: No obstruction or bowel wall thickening. The appendix is retrocecal and projects cephalad, near the inferior right lobe of the liver. It is mildly dilated. There is some surrounding stranding. This could represent early appendicitis versus postsurgical changes. Peritoneal cavity: Trace fluid low in the pelvis. No focal collection. Mild right upper quadrant stranding. Reproductive organs: Within normal limits. Bones: Within normal limits. IMPRESSION: Status post cholecystectomy. Mild right upper quadrant stranding consistent with postsurgical changes. The appendix is in area and appears slightly dilated. Early appendicitis not excluded. Findings called to Laurel Portillo of the emergency department. HPI General Date/Time Provider Initiated Documentation: 02/23/23 13:21. HPI Narrative: This is a pleasant 52-year-old female with past medical history of recent cholecystectomy 3 to 4 days ago, Takotsubo's cardiomyopathy, previous pulmonary embolism, previous transaminitis, previous kidney stones, who presents today for evaluation of right flank pain. Patient states that on Thursday which was yesterday she developed frequency and mild burning with urination, and eventually developed mild right flank pain. It is continued and not improved. She denies fever or chills. No other complaints at this time. Related Data Home Medications Medication Instructions Recorded Confirmed epinephrine 0.3 mg/0.3 mL 0.3 mg IM PRN PRN 04/19/15 02/23/23 injection, auto-injector levothyroxine 125 mcg tablet 100 mcg PO DAILY 04/19/15 02/23/23 (Levoxyl) liothyronine 5 mcg tablet 5 mcg PO BID 04/19/15 02/23/23 hydroxyzine HCl 10 mg tablet 10 mg PO QHS 01/20/23 02/23/23 metformin 500 mg tablet 500 mg PO DAILY 01/20/23 02/23/23 semaglutide (weight loss) 2.4 2.4 mg subcut QWEEK 01/20/23 02/23/23 mg/0.75 mL subcutaneous pen injector (Wegovy) vortioxetine 10 mg tablet 10 mg DAILY 01/20/23 02/23/23 (Trintellix) ondansetron 4 mg disintegrating 4 mg PO Q8H #20 tabs 02/02/23 02/23/23 tablet biotin 10,000 mcg chewable tablet 10,000 mcg PO DAILY 02/17/23 02/23/23 (Hair, Skin and Nails (biotin)) cyanocobalamin (vitamin B-12) 1,000 mcg PO DAILY 02/17/23 02/23/23 1,000 mcg tablet folic acid 1 mg tablet 1 mg PO DAILY 02/17/23 02/23/23 omega-3 fatty acids 1 cap PO DAILY 02/17/23 02/23/23 tramadol 50 mg tablet 50 mg PO Q8H PRN #9 tabs 02/20/23 02/23/23 Previous Rx's Medication Instructions Recorded ondansetron 4 mg disintegrating 4 mg PO Q8H #20 tabs 02/02/23 tablet tramadol 50 mg tablet 50 mg PO Q8H PRN #9 tabs 02/20/23 Allergies Allergy/AdvReac Type Severity Reaction Status Date / Time azithromycin Allergy Severe Anaphylaxis Unverified 02/20/23 06:37 codeine Allergy Severe Anaphylaxis Unverified 02/20/23 06:37 honey Allergy Severe Anaphylaxis Unverified 02/20/23 06:37 morphine Allergy Severe Anaphylaxis Unverified 02/20/23 06:37 prednisone Allergy Severe Anaphylaxis Unverified 02/20/23 06:37 Sulfa (Sulfonamide Allergy Severe Anaphylaxis Unverified 02/20/23 06:37 Antibiotics) sulfamethoxazole Allergy Severe Anaphylaxis Unverified 02/20/23 06:37 [From Bactrim] trimethoprim [From Bactrim] Allergy Severe Anaphylaxis Unverified 02/20/23 06:37 venom-honey bee Allergy Severe Anaphylaxis Unverified 02/20/23 06:37 [bee venom (honey bee)] Penicillins Allergy Other (See Unverified 02/20/23 06:37 Comment) General Stated Complaint: FlankPain JOHN: 3 Review of Systems All systems reviewed & are unremarkable except as noted in HPI and below PFSH All Active Problems (Updated 02/23/23 @ 17:28 by Ross Crump DO) Dysuria (Acute) UTI (urinary tract infection) (Acute) Abnormal CT of the abdomen (Acute) pt was having diarrhea at the time Needs CE once GB out Calculus of gallbladder with chronic cholecystitis (Acute) Weight loss due to medication (Acute) Herniated disc, cervical (Acute) 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 no residential anti coag required- per pt. Hypothyroidism (Chronic) Cervical neuralgia (Acute) Discharge planning issues (Acute) DVT prophylaxis (Acute) Chest pain (Acute) Surgical History History of laparoscopic cholecystectomy (~02/20/23) Social History Smoking/Tobacco Use Status: Never Smoking risk assessment performed?: Yes Alcohol Intake: current Alcohol Intake frequency: holidays/special occasions only Alcohol type: other Drug use: Never Substance use type: does not use Housing: house Do you feel safe at home: Yes Do you feel safe in your relationship?: Yes History History Para 3 Hx # Term Pregnancies Multiple births Hx # Pregnancies Ectopic pregnancies AB induced Hx Number of Living Children AB spontaneous Exam Narrative Exam Narrative: 1.Const: Well-nourished, Well-developed, appearing stated age 2.Eyes: PERRL, no conjunctival injection, and symmetrical lids. 3.ENT: Atraumatic external nose and ears. Moist MM. Neck: Symmetric, trachea midline, No thyromegaly. 4.CVS: +S1/S2, No murmurs or gallops. Peripheral pulses 2+ and equal in all extremities. Brisk capillary refill in all extremities. 5.RESP: Unlabored respiratory effort. Clear to auscultation bilaterally. No wheezes rales or rhonchi 6.GI: Soft, nondistended, no hepatosplenomegaly. No guarding or rebound. Postoperative sites are clean dry and intact. Mild the right-sided CVA tenderness and mild left mid tenderness on palpation which appears to be postoperative in nature. 7.MSK: Normocephalic/Atraumatic, Extremities w/o deformity or ttp No cyanosis or clubbing, Normal movement of all extremities 8.Skin: Warm, Dry. No rashes or lesions. 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 Sensation grossly intact, no focal neurologic deficits. 10.Psych: (AAO) x3. Appropriate mood and affect Course Vital Signs Vital signs: Vital Signs Temperature 36.6 C 02/23/23 13:14 Pulse 83 02/23/23 13:14 Respiratory Rate 18 02/23/23 13:14 Blood Pressure 122/78 02/23/23 13:14 Pulse Oximetry 100 02/23/23 13:14 Temperature 36.6 C 02/23/23 13:14 Temperature Source Oral 02/23/23 13:14 Pulse 83 02/23/23 13:14 Respiratory Rate 18 02/23/23 13:14 Respiratory Effort Normal, Non-Labored 02/23/23 13:21 Blood Pressure 122/78 02/23/23 13:14 Blood Pressure Position Sitting 02/23/23 13:14 Pulse Oximetry 100 02/23/23 13:14 Oxygen Delivery Method Room Air 02/23/23 13:14 Oxygen Flow Rate 0 02/23/23 13:14
[2023-02-23 13:40] LABS: Clarity Clear (Clear)
[2023-02-23 13:41] LABS: Specific Gravity 1.005 (1.005-1.025)
[2023-02-23 13:51] LABS: Bacteria Few HPF (Negative); C & S Indicated? No/Sq. Contamination; Casts Negative LPF (Negative); Crystals Negative HPF (Negative); Epithelial Cells Moderate HPF (Negative); Mucus Negative (Negative); RBC 0-2 HPF (0-2)
[2023-02-23 13:55] LABS: Abs Immature Grans 0.02 10^3/uL (0.0-0.06); Absolute Basophil Count 0.02 10^3/uL (0.0-0.2); Absolute Lymphocyte Count 1.81 10^3/uL (1.2-3.4); Absolute Monocyte Count 0.51 10^3/uL (0.1-0.8); Basophils % 0.3; Eosinophils % 3.1; HCT 38.9 % (36.0-46.0); HGB 12.8 g/dL (11.2-15.7); Immature Grans % 0.3; Lactate 0.9 mmol/L (0.6-1.4); Lymphocytes % 28.5; MCH 28.3 pg (27.0-33.0); MCHC 32.9 % (32.0-36.0); MCV 86 fL (80-95); MPV 9.7 fL (8.0-11.0); Neutrophils % 59.8; Platelet Count 198 10^3/uL (130-400); RBC 4.52 10^6/uL (3.93-5.22); RDW 13.2 % (11.7-14.6); RDW-SD 40.5 fL; WBC 6.36 10^3/uL (4.4-10.8)
[2023-02-23 14:14] LABS: ALT 43 U/L (14-59); AST 22 U/L (15-37); Albumin 3.4 g/dL (3.4-5.0); Alkaline Phosphatase 72 U/L (46-116); Anion Gap 5.1 mmol/L (3-11); BUN 8 mg/dL (7-18); Bilirubin, Total 0.5 mg/dL (0.2-1.0); CO2 29.9 mmol/L (21.0-32.0); CREATININE 0.9 mg/dL (0.55-1.02); Calcium 8.8 mg/dL (8.5-10.1); Chloride 106 mmol/L (98-107); Estimated GFR 75.97 (mL/min/1.73m2); Glucose 93 mg/dL (74-106); Potassium 3.8 mmol/L (3.5-5.1); Sodium 141 mmol/L (136-145); Total Protein 6.6 g/dL (6.4-8.2)
[2023-02-23] MEDS: Fosfomycin Tromethamine 3 GM PACKET PO (14:52)
--- NOTE | 2023-02-23 19:21 | W.SURGCON ---
Date of service: 02/23/23 Time of Service: 13:45 Assessment and Plan Assessment and plan (1) History of laparoscopic cholecystectomy: Assessment and plan: I was able to review the CAT scan, and I do see some mild changes around the appendix, however I do not believe they are consistent with acute appendicitis. The tip of the appendix is up towards the area of the hepatic flexure, and I think this is expected postoperative findings after cholecystectomy. She has no tenderness in the right hemiabdomen that would support that diagnosis. Furthermore, the white blood cell count is also normal. I think is reasonable to treat urinary tract infection since the symptoms seem consistent with UTI. I am happy to see her in the office in the next 48 hours to reassess her abdomen History of Present Illness History of Present Illness Chief Complaint: Back pain Narrative: Jermaine is 52 years old, and she is postoperative day 3 from a laparoscopic cholecystectomy. She was doing well after the operation, until yesterday, when she started develop some right-sided flank discomfort. This was associated with some change in the character of her urine. She was concerned that this may represent urinary tract infection. Ultimately, she came to the emergency department for evaluation of that. On arrival to the ER, hemodynamics were all stable, and she had no evidence of any leukocytosis. She underwent a CAT scan of the abdomen and pelvis that shows expected postoperative findings, but raise the possibility of acute appendicitis as a source of her pain. Review of Systems Constitutional Constitutional: Denies body ache(s) and Denies fever(s) Eyes Eyes: Reports system reviewed and no additional complaints, except as documented ENT Ears, Nose, Mouth, and Throat: Reports system reviewed and no additional complaints, except as documented Cardiovascular Cardiovascular: Denies chest pain and Denies dyspnea on exertion Respiratory Respiratory: Denies chest congestion, Denies cough and Denies dyspnea on exertion Gastrointestinal Gastrointestinal: Denies abdominal pain, Reports nausea and Reports vomiting Genitourinary Genitourinary: Denies hematuria, Denies urinary frequency and Denies dysuria Comments: Malodorous urine Musculoskeletal Comments: Right-sided back pain, nonreproducible Neurologic Neurologic: Reports system reviewed and no additional complaints, except as documented Psychiatric Psychiatric: Reports system reviewed and no additional complaints, except as documented PFSH All Active Problems (Updated 02/23/23 @ 17:28 by Ross Crump DO) Dysuria (Acute) UTI (urinary tract infection) (Acute) Abnormal CT of the abdomen (Acute) pt was having diarrhea at the time Needs CE once GB out Calculus of gallbladder with chronic cholecystitis (Acute) Weight loss due to medication (Acute) Herniated disc, cervical (Acute) 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 no half-way anti coag required- per pt. Hypothyroidism (Chronic) Cervical neuralgia (Acute) Discharge planning issues (Acute) DVT prophylaxis (Acute) Chest pain (Acute) Surgical History History of laparoscopic cholecystectomy (~02/20/23) Social History Smoking/Tobacco Use Status: Never Smoking risk assessment performed?: Yes Alcohol Intake: current Alcohol Intake frequency: holidays/special occasions only Alcohol type: other Drug use: Never Substance use type: does not use Housing: house Do you feel safe at home: Yes Do you feel safe in your relationship?: Yes History History Para 3 Hx # Term Pregnancies Multiple births Hx # Pregnancies Ectopic pregnancies AB induced Hx Number of Living Children AB spontaneous Exam Const General: cooperative, healthy appearing and no acute distress Orientation: alert, awake and oriented x3 GI Palpation: soft, no guarding and nontender Percussion: normal to percussion Auscultation: normal bowel sounds Other: Surgical incisions are clean, there is no erythema or tenderness. There is no evidence of hernia at the umbilical site. She has no tenderness over the right lower quadrant, or anywhere across the right hemiabdomen. Pain is in the right back almost at the the paraspinous muscle Results Last Vital Signs Temp 98 F 02/23/23 13:14 Pulse 83 02/23/23 13:14 Resp 18 02/23/23 13:14 BP 122/78 02/23/23 13:14 Pulse Ox 100 02/23/23 13:14 Labs 02/23/23 13:48 02/23/23 13:48 Labs: Laboratory Results - last 24 hr 02/23/23 02/23/23 02/23/23 13:27 13:48 13:48 WBC RBC Hgb Hct MCV MCH MCHC RDW Plt Count MPV Immature Gran % Neutrophils % Lymphocytes % Monocytes % Eosinophils % Basophils % Nucleated RBC % Absolute Neutrophils Absolute Lymphocytes Absolute Monocytes Absolute Eosinophils Absolute Basophils VBG Lactate 0.9 Sodium 141 Potassium 3.8 Chloride 106 Carbon Dioxide 29.9 Anion Gap 5.1 BUN 8 Creatinine 0.9 Est GFR (CKD-EPI 2020) 75.97 Glucose 93 Calcium 8.8 Total Bilirubin 0.5 AST 22 ALT 43 Alkaline Phosphatase 72 Total Protein 6.6 Albumin 3.4 Urine Color [place] Urine Clarity Clear Urine pH Not Applicable Ur Specific [place] 1.005 Urine Protein Not Applicable Urine Ketones Not Applicable Urine Blood Not Applicable Urine Nitrite Not Applicable Urine Bilirubin Not Applicable Urine Urobilinogen Not Applicable Ur Leukocyte Esterase Not Applicable Urine RBC 0-2 Urine WBC 5-10 Ur Epithelial Cells Moderate Urine Crystals Negative Urine Bacteria Few Urine Casts Negative Urine Mucus Negative Ur Culture Indicated? No/Sq. Contamination Urine Glucose Not Applicable 02/23/23 13:48 WBC 6.36 RBC 4.52 Hgb 12.8 Hct 38.9 MCV 86 MCH 28.3 MCHC 32.9 RDW 13.2 Plt Count 198 MPV 9.7 Immature Gran % 0.3 Neutrophils % 59.8 Lymphocytes % 28.5 Monocytes % 8.0 Eosinophils % 3.1 Basophils % 0.3 Nucleated RBC % 0.0 Absolute Neutrophils 3.80 Absolute Lymphocytes 1.81 Absolute Monocytes 0.51 Absolute Eosinophils 0.20 Absolute Basophils 0.02 VBG Lactate Sodium Potassium Chloride Carbon Dioxide Anion Gap BUN Creatinine Est GFR (CKD-EPI 2020) Glucose Calcium Total Bilirubin AST ALT Alkaline Phosphatase Total Protein Albumin Urine Color Urine Clarity Urine pH Ur Specific [place] Urine Protein Urine Ketones Urine Blood Urine Nitrite Urine Bilirubin Urine Urobilinogen Ur Leukocyte Esterase Urine RBC Urine WBC Ur Epithelial Cells Urine Crystals Urine Bacteria Urine Casts Urine Mucus Ur Culture Indicated? Urine Glucose Imaging Abdomen CT scan report/results: report reviewed and image reviewed CT scan - pelvis: report reviewed and image reviewed
== END 2023-02-23 14:58 | disposition home or self-care (01) ==
PROVIDERS: Emergency Provider Student in an Organized Health Care Education/Training Program; PCP Internal Medicine
DX: R30.0 Dysuria (principal); N39.0 Urinary tract infection, site not specified; I51.81 Takotsubo syndrome; Z86.718 Personal history of other venous thrombosis and embolism; Z90.49 Acquired absence of other specified parts of digestive tract
CPT/HCPCS: 36415; 80053; 99284; 74176; 81003; 81015; 83605; 85025; 99283; J3490

== ENCOUNTER 2023-09-12 09:08 | Emergency (ER) | payer OTHER, SELFPAY ==
[2023-09-12 09:16] VITALS: BP 134/84; PULSE 86; RESP 18; TEMP 36.7; O2SAT 100
--- NOTE | 2023-09-12 09:30 | DI.US_ITS ---
Exam(s) US LOWER EXTREMITY VENOUS LT EXAM: US LOWER EXTREMITY VENOUS LT CLINICAL HISTORY: r/u dvt TECHNIQUE: Grayscale, color, and doppler imaging of the deep venous system of the left lower extremi ty was performed. COMPARISON: US US ECHOCARDIOGRAM from 02/12/2023 FINDINGS: There is no evidence of intraluminal thrombus and there is normal compression and augmentation demons trated within the common femoral vein, femoral vein, and popliteal vein. In the ipsilateral calf the interrogated veins also exhibit normal compression/ augmentation properti es. The ipsilateral saphenofemoral junction is patent. IMPRESSION: 1. No evidence of DVT in the left lower extremity. DATA REPOSITORY:
[2023-09-12 09:33] VITALS: RESP 15
--- NOTE | 2023-09-12 10:16 | DI.VRAD_ITS ---
PROCEDURE INFORMATION: Exam: US Duplex Left Lower Extremity Veins, Limited Exam date and time: 09/12/2023 9:40 AM Age: 52 years old Clinical indication: Pain; Leg, upper; Left; Patient HX: HX pe TECHNIQUE: Imaging protocol: Real-time duplex ultrasound of the left extremity with 2-D galindo scale, color Doppler flow and spectral waveform analysis including responses to compression and other maneuvers (when performed) with image documentation. Limited exam focused on the left lower extremity veins. COMPARISON: BILATERAL EXTREMITY US 10/01/2017 9:59 AM FINDINGS: Left deep veins: Unremarkable. The common femoral, femoral, proximal profunda femoral and popliteal veins are patent without thrombus. Normal Doppler waveforms. Normal compressibility and/or augmentation response. Superficial veins: Unremarkable. Saphenofemoral junction is patent without thrombus. Soft tissues: Unremarkable. IMPRESSION: No evidence of deep vein thrombosis. Dictated and Authenticated by: Eloina Chase MD. Ordering:[facility] Chloé Lew MD
--- NOTE | 2023-09-12 10:36 | DI.RAD_ITS ---
Exam(s) XR TIB/FIB LT EXAM: XR TIB/FIB LT CLINICAL HISTORY: leg pain. TECHNIQUE: 2D digital imaging was performed. COMPARISON: No exams were available for comparison FINDINGS: Two views: No evidence of acute fracture or dislocation. No radiopaque foreign body. No osseous lesions. Bone density normal. IMPRESSION: No acute osseous findings in the tibia and fibula. DATA REPOSITORY: RADIATION DOSE DELIVERED:
--- NOTE | 2023-09-12 10:47 | DI.VRAD_ITS ---
PROCEDURE INFORMATION: Exam: XR Left Tibia and Fibula Exam date and time: 09/12/2023 10:29 AM Age: 52 years old Clinical indication: Pain; Lower leg; Left TECHNIQUE: Imaging protocol: Radiologic exam of the left tibia and fibula. Views: 2 views. COMPARISON: US LOWER EXTREMITY VENOUS LT 09/12/2023 9:40 AM FINDINGS: Bones/joints: There is no evidence of acute fracture.There is no evidence of malalignment or dislocation. Soft tissues: Normal. IMPRESSION: There is no evidence of acute fracture.There is no evidence of malalignment or dislocation. Dictated and Authenticated by: Eloina Chase MD. Ordering:[facility] Chloé Lew MD
--- NOTE | 2023-09-12 11:22 | ED.GENADUL_ITS ---
HPI General Date/Time Provider Initiated Documentation: 09/12/23 09:19 . Limitations to Documentation: no limitations . Information obtained by: patient . HPI Narrative: 52-year-old female with past medical history of prior provoked DVT/PE presents for evaluation of left calf pain. Patient reports that symptoms started 1 week ago when she had traveled to [place]. She reports that she drove to [place] spent the entire day walking around and then drove back home. A normal total of 6 hours in the car and approximately 6 hours on her feet walking. She reports that she has been having calf soreness since that time. Been taking sezo-mfh-[id number] medications and doing Epsom salt soaks without significant relief. She thought that maybe it looked a little bit more swollen today. She was concerned with the persistent symptoms given her history of PE. She is not currently on any anticoagulation Related Data Home Medications Medication Instructions Recorded Confirmed epinephrine 0.3 mg/0.3 mL 0.3 mg IM PRN PRN 04/19/15 02/25/23 injection, auto-injector levothyroxine 125 mcg tablet 100 mcg PO DAILY 04/19/15 09/12/23 (Levoxyl) liothyronine 5 mcg tablet 5 mcg PO BID 04/19/15 09/12/23 hydroxyzine HCl 10 mg tablet 10 mg PO QHS 01/20/23 09/12/23 semaglutide (weight loss) 2.4 1.7 mg subcut QWEEK 01/20/23 09/12/23 mg/0.75 mL subcutaneous pen injector (Wegovy) vortioxetine 10 mg tablet 10 mg PO DAILY 01/20/23 09/12/23 (Trintellix) biotin 10,000 mcg chewable tablet 10,000 mcg PO DAILY 02/17/23 09/12/23 (Hair, Skin and Nails (biotin)) cyanocobalamin (vitamin B-12) 1,000 mcg PO DAILY 02/17/23 09/12/23 1,000 mcg tablet folic acid 1 mg tablet 1 mg PO DAILY 02/17/23 09/12/23 omega-3 fatty acids 1 cap PO DAILY 02/17/23 09/12/23 buspirone 10 mg tablet 10 mg PO BID 09/12/23 09/12/23 Allergies Allergy/AdvReac Type Severity Reaction Status Date / Time azithromycin Allergy Severe Anaphylaxis Unverified 09/12/23 09:18 codeine Allergy Severe Anaphylaxis Unverified 09/12/23 09:18 honey Allergy Severe Anaphylaxis Unverified 09/12/23 09:18 morphine Allergy Severe Anaphylaxis Unverified 09/12/23 09:18 prednisone Allergy Severe Anaphylaxis Unverified 09/12/23 09:18 Sulfa (Sulfonamide Allergy Severe Anaphylaxis Unverified 09/12/23 09:18 Antibiotics) sulfamethoxazole Allergy Severe Anaphylaxis Unverified 09/12/23 09:18 [From Bactrim] trimethoprim [From Bactrim] Allergy Severe Anaphylaxis Unverified 09/12/23 09:18 venom-honey bee Allergy Severe Anaphylaxis Unverified 09/12/23 09:18 [bee venom (honey bee)] Penicillins Allergy Other (See Unverified 09/12/23 09:18 Comment) General Stated Complaint: Vascular JOHN: 3 Exam Narrative Exam Narrative: Review of Systems: All systems reviewed & are unremarkable except as noted in HPI and below Well-developed, no acute distress NCAT PERRL, normal conjunctiva RRR Unlabored respiratory effort Nondistended abdomen Extremities w/o deformity, no cyanosis, no edema No appreciable calf asymmetry no significant tenderness on exam, no discoloration No rashes or lesions. no focal neurologic deficits Appropriate mood and affect Course Vital Signs Vital signs: Vital Signs Temperature 36.7 C 09/12/23 09:16 Pulse 86 09/12/23 09:16 Respiratory Rate 18 09/12/23 09:16 Blood Pressure 134/84 09/12/23 09:16 Pulse Oximetry 100 09/12/23 09:16 Temperature 36.7 C 09/12/23 09:16 Temperature Source Temporal Artery Scan 09/12/23 09:16 Pulse 86 09/12/23 09:16 Respiratory Rate 15 09/12/23 09:33 Respiratory Effort Normal 09/12/23 09:33 Respiratory Depth Normal 09/12/23 09:33 Respiratory Pattern Normal 09/12/23 09:33 Blood Pressure 134/84 09/12/23 09:16 Blood Pressure Position Sitting 09/12/23 09:16 Pulse Oximetry 100 09/12/23 09:16 Oxygen Delivery Method Room Air 09/12/23 09:16 Oxygen Flow Rate 0 09/12/23 09:16 Medical Decision Making Emergent evaluation of left calf pain. Symptoms have been ongoing for the last week. On examination there is no appreciable swelling, no deformity or color change. Doubt infectious etiology. Possible with bony fracture. Would also consider DVT given her history. Patient was sent for an ultrasound which did not reveal a blood clot. Given that her symptoms have been ongoing for a week, I would suspect that the DVT would show at this point. She was sent for an x- ray to evaluate for an acute bony injury given her excessive walking however this was also negative. Recommend continued supportive care. And follow-up with PCP if symptoms are still not improving. Medical Records Medical records reviewed: Yes I reviewed the patient's medical records. 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 no salvage determiner anti coag required- per pt. Hypothyroidism (Chronic) Cervical neuralgia (Acute) Discharge planning issues (Acute) DVT prophylaxis (Acute) Chest pain (Acute) Surgical History History of laparoscopic cholecystectomy (~02/20/23) Social History Smoking/Tobacco Use Status: Never Smoking risk assessment performed?: Yes Alcohol Intake: current Alcohol Intake frequency: holidays/special occasions only Alcohol type: other Drug use: Never Substance use type: does not use Housing: house Do you feel safe at home: Yes Do you feel safe in your relationship?: Yes History History Para 3 Hx # Term Pregnancies Multiple births Hx # Pregnancies Ectopic pregnancies AB induced Hx Number of Living Children AB spontaneous Discharge Plan Disposition Patient Disposition: Home Condition: Stable Discharge Details Clinical Impression: Left leg pain Primary Care Provider: Martin Raya ED Provider: Eliseo Luevano Home Meds and New Rx's Prescriptions: No Action levothyroxine [Levoxyl] 125 MCG tablet 100 mcg PO DAILY liothyronine 5 MCG tablet 5 mcg PO BID epinephrine 0.3 MG/SYR auto-injector 0.3 mg IM PRN PRN Patient Comments: not used recently hydroxyzine HCl 10 mg tablet 10 mg PO QHS Patient Comments: TAKE 1 TO 2 TABLETS BY MOUTH 30 MIN BEFORE AT BEDTIME NEEDED FOR SLEEP Trintellix 10 mg tablet 10 mg PO DAILY Wegovy 2.4 mg/0.75 mL pen injector 1.7 mg SUBCUT QWEEK cyanocobalamin (vitamin B-12) 1,000 mcg Tablet 1,000 mcg PO DAILY folic acid 1 mg Tablet 1 mg PO DAILY omega-3 fatty acids Capsule 1 cap PO DAILY Hair, Skin and Nails (biotin) 10,000 mcg Tablet,Chewable 10,000 mcg PO DAILY buspirone 10 mg tablet 10 mg PO BID Patient Comments: TAKE ONE TABLET BY MOUTH TWICE A DAY Discharge Instructions Instructions: Leg Pain (ED) Additional Instructions: Ultrasound is negative for DVT today. X-ray is also negative for fracture. Please continue supportive care with elevation, rest, hot compress, Motrin and Tylenol as needed for pain. Follow-up with your PCP if symptoms or not improving.
== END 2023-09-12 10:46 | disposition home or self-care (01) ==
PROVIDERS: Emergency Provider Emergency Medicine; PCP Internal Medicine
DX: M79.662 Pain in left lower leg (principal)
CPT/HCPCS: 99284; 73590; 93971; 99283

== ENCOUNTER 2023-10-26 17:18 | Emergency (ER) | payer OTHER, SELFPAY ==
[2023-10-26 17:35] VITALS: BP 139/77; PULSE 78; RESP 16; TEMP 37; O2SAT 100
[2023-10-26 17:56] LABS: Bilirubin Negative (Negative); Blood Trace-lysed (Negative); Clarity Cloudy (Clear); Glucose Negative (Negative); Ketones Negative (Negative); Leukocyte Esterase Moderate (Negative); Nitrite Negative (Negative); Specific Gravity >= 1.030 (1.005-1.025); Urobilinogen 0.2 mg/dL (Up to 0.2)
[2023-10-26 18:01] LABS: Bacteria Many HPF (Negative); C & S Indicated? Yes; Casts Negative LPF (Negative); Crystals Negative HPF (Negative); Epithelial Cells Few HPF (Negative); Mucus Trace (Negative); RBC 0-2 HPF (0-2); WBC >50 HPF (0-5)
[2023-10-26] MEDS: Cephalexin 500 MG CAP, 4 CAPS/BTL PO (19:36)
--- NOTE | 2023-10-26 20:29 | W.ED.GENAD ---
Discharge Plan Disposition Patient Disposition: Home Discharge Details Clinical Impression: UTI (urinary tract infection) Primary Care Provider: Martin Raya ED Provider: Eliseo Luevano Home Meds and New Rx's Prescriptions: New cephalexin 500 mg capsule 500 mg PO BID 7 Days Qty: 14 0RF ondansetron 4 mg tablet,disintegrating 4 mg PO Q6H PRN (Reason: nausea and vomiting) Qty: 20 0RF cephalexin 500 mg capsule 500 mg PO BID 7 Days Qty: 14 0RF No Action levothyroxine [Levoxyl] 125 MCG tablet 100 mcg PO DAILY liothyronine 5 MCG tablet 5 mcg PO BID epinephrine 0.3 MG/SYR auto-injector 0.3 mg IM PRN PRN Patient Comments: not used recently hydroxyzine HCl 10 mg tablet 10 mg PO QHS Patient Comments: TAKE 1 TO 2 TABLETS BY MOUTH 30 MIN BEFORE AT BEDTIME NEEDED FOR SLEEP Trintellix 10 mg tablet 10 mg PO DAILY Wegovy 2.4 mg/0.75 mL pen injector 1.7 mg SUBCUT QWEEK buspirone 10 mg tablet 10 mg PO BID Patient Comments: TAKE ONE TABLET BY MOUTH TWICE A DAY Discharge Instructions Instructions: Urinary Tract Infection in Women (ED) Additional Instructions: Start medication as prescribed. Make sure to drink lots of water. Return to the emergency department if you develop fever, not tolerating the medicine or developing severe symptoms. Discharge Data Discharge Date/Time-TO BE ENTERED AT DEPARTURE: 10/26/23 18:28 HPI General Date/Time Provider Initiated Documentation: 10/26/23 17:41. Limitations to Documentation: no limitations. Information obtained by: patient. HPI Narrative: 52-year-old female with past medical history of CVA, presents for evaluation of burning with urination. She reports that the symptoms have been ongoing for the last 3 days. Has been worse significantly today. She reports temperature of 99 at home with some mild nausea. Had an episode of vomiting yesterday. Has not had much of an appetite today. Reports that she has urgency and frequency. Reports that she feels like she just go to the bathroom but does not have much come out. Related Data Home Medications Medication Instructions Recorded Confirmed epinephrine 0.3 mg/0.3 mL 0.3 mg IM PRN PRN 04/19/15 10/26/23 injection, auto-injector levothyroxine 125 mcg tablet 100 mcg PO DAILY 04/19/15 10/26/23 (Levoxyl) liothyronine 5 mcg tablet 5 mcg PO BID 04/19/15 10/26/23 hydroxyzine HCl 10 mg tablet 10 mg PO QHS 01/20/23 10/26/23 semaglutide (weight loss) 2.4 1.7 mg subcut QWEEK 01/20/23 10/26/23 mg/0.75 mL subcutaneous pen injector (Wegovy) vortioxetine 10 mg tablet 10 mg PO DAILY 01/20/23 10/26/23 (Trintellix) buspirone 10 mg tablet 10 mg PO BID 09/12/23 10/26/23 cephalexin 500 mg capsule 500 mg PO BID 7 days #14 caps 10/26/23 cephalexin 500 mg capsule 500 mg PO BID 7 days #14 caps 10/26/23 ondansetron 4 mg disintegrating 4 mg PO Q6H PRN nausea and 10/26/23 tablet vomiting #20 tabs Previous Rx's Medication Instructions Recorded cephalexin 500 mg capsule 500 mg PO BID 7 days #14 caps 10/26/23 cephalexin 500 mg capsule 500 mg PO BID 7 days #14 caps 10/26/23 ondansetron 4 mg disintegrating 4 mg PO Q6H PRN nausea and 10/26/23 tablet vomiting #20 tabs Allergies Allergy/AdvReac Type Severity Reaction Status Date / Time azithromycin Allergy Severe Anaphylaxis Unverified 10/26/23 17:39 codeine Allergy Severe Anaphylaxis Unverified 10/26/23 17:39 honey Allergy Severe Anaphylaxis Unverified 10/26/23 17:39 morphine Allergy Severe Anaphylaxis Unverified 10/26/23 17:39 prednisone Allergy Severe Anaphylaxis Unverified 10/26/23 17:39 Sulfa (Sulfonamide Allergy Severe Anaphylaxis Unverified 10/26/23 17:39 Antibiotics) sulfamethoxazole Allergy Severe Anaphylaxis Unverified 10/26/23 17:39 [From Bactrim] trimethoprim [From Bactrim] Allergy Severe Anaphylaxis Unverified 10/26/23 17:39 venom-honey bee Allergy Severe Anaphylaxis Unverified 10/26/23 17:39 [bee venom (honey bee)] Penicillins Allergy Other (See Unverified 10/26/23 17:39 Comment) General Stated Complaint: Urinary JOHN: 3 Exam Narrative Exam Narrative: Review of Systems: All systems reviewed & are unremarkable except as noted in HPI and below Well-developed, no acute distress NCAT PERRL, normal conjunctiva RRR Unlabored respiratory effort Nondistended abdomen , mild suprapubic tenderness, no CVA tenderness Extremities w/o deformity, no cyanosis, no edema No rashes or lesions. no focal neurologic deficits Appropriate mood and affect Course Vital Signs Vital signs: Vital Signs Temperature 37.0 C 10/26/23 17:35 Pulse 78 10/26/23 17:35 Respiratory Rate 16 10/26/23 17:35 Blood Pressure 139/77 10/26/23 17:35 Pulse Oximetry 100 10/26/23 17:35 Temperature 37.0 C 10/26/23 17:35 Temperature Source Temporal Artery Scan 10/26/23 17:35 Pulse 78 10/26/23 17:35 Respiratory Rate 16 10/26/23 17:35 Respiratory Effort Normal 10/26/23 18:12 Blood Pressure 139/77 10/26/23 17:35 Blood Pressure Position Sitting 10/26/23 17:35 Pulse Oximetry 100 10/26/23 17:35 Oxygen Delivery Method Room Air 10/26/23 17:35 Oxygen Flow Rate 0 10/26/23 17:35 Pain Level 4 10/26/23 17:35 Lab/Test Results Lab/Test Results: 10/26/23 17:50 Urine - Reflex from Ua Urine Culture - Pending Laboratory Tests Range/Units 10/26/23 17:50 Urine Color (Yellow) Yellow Urine Clarity (Clear) Cloudy Urine pH (5-8) 6.0 Ur Specific [place] (1.005-1.025) >= 1.030 H Urine Protein (Neg-Trace) mg/dL 30 H Urine Ketones (Negative) mg/dL Negative Urine Blood (Negative) Trace-lysed H Urine Nitrite (Negative) Negative Urine Bilirubin (Negative) Negative Urine Urobilinogen (Up to 0.2) mg/dL 0.2 Ur Leukocyte Esterase (Negative) Moderate H Urine RBC (0-2) HPF 0-2 Urine WBC (0-5) HPF >50 H Ur Epithelial Cells (Negative) HPF Few Urine Crystals (Negative) HPF Negative Urine Bacteria (Negative) HPF Many Urine Casts (Negative) LPF Negative Urine Mucus (Negative) Trace Ur Culture Indicated? Yes Urine Glucose (Negative) mg/dL Negative Medical Decision Making Emergent evaluation of dysuria. Initial differential includes UTI, pyelonephritis, less likely kidney stone. Symptoms seem most consistent with UTI. She is hemodynamically stable and afebrile. She does not have any CVA tenderness, so have a low suspicion for pyelonephritis. Urinalysis reviewed and it is infected. A culture has been sent. I reviewed her allergies, based on her allergies, I will prescribe Keflex for 7 days. After discharge, the patient's called and stated that the pharmacy got the prescription for the Zofran, but stated that they did not get the prescription for the Keflex. I can see that the prescription says it was received by the pharmacy. The pharmacy is now closed. The patient's returned to the hospital and he was given 4 pills of the Keflex. I resent a new prescription to the pharmacy. If there are any issues tomorrow, he understands to call back. Quality:SDOH Health Related Social Needs: No Data to Display PFSH All Active Problems UTI (urinary tract infection) (Acute) Abnormal CT of the abdomen (Acute) pt was having diarrhea at the time Needs CE once GB out Calculus of gallbladder with chronic cholecystitis (Acute) Weight loss due to medication (Acute) Herniated disc, cervical (Acute) 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 no intermodal customer service anti coag required- per pt. Hypothyroidism (Chronic) Cervical neuralgia (Acute) Discharge planning issues (Acute) DVT prophylaxis (Acute) Chest pain (Acute) Surgical History History of laparoscopic cholecystectomy (~02/20/23) Social History Smoking/Tobacco Use Status: Never Smoking risk assessment performed?: Yes Alcohol Intake: current Alcohol Intake frequency: holidays/special occasions only Alcohol type: other Drug use: Never Substance use type: does not use Housing: house Do you feel safe at home: Yes Do you feel safe in your relationship?: Yes History History Para 3 Hx # Term Pregnancies Multiple births Hx # Pregnancies Ectopic pregnancies AB induced Hx Number of Living Children AB spontaneous
== END 2023-10-26 18:28 | disposition home or self-care (01) ==
PROVIDERS: Emergency Provider Emergency Medicine; PCP Internal Medicine
DX: R30.0 Dysuria (principal); N39.0 Urinary tract infection, site not specified; R42 Dizziness and giddiness; Z86.73 Personal history of transient ischemic attack (TIA), and cerebral infarction without residual deficits
CPT/HCPCS: 87077; 99283; 81003; 81015; 87086; 87186

== ENCOUNTER 2023-11-20 01:36 | Outpatient (CLI) | payer OTHER, SELFPAY ==
[2023-11-20 18:58] LABS: FREE T4 1.25 ng/dL (0.76-1.46); TSH 0.22 uIU/Ml (0.36-3.74)
[2023-11-21 23:05] LABS: T3, Total 177 ng/dL (97-169)
== END 2023-11-20 01:37 | disposition home or self-care (01) ==
PROVIDERS: PCP Internal Medicine; Visit Provider Internal Medicine
DX: E03.9 Hypothyroidism, unspecified (principal)
CPT/HCPCS: 36415; 84439; 84443; 84480

== ENCOUNTER 2023-12-23 05:03 | Outpatient (CLI) | payer OTHER, SELFPAY ==
[2023-12-23 17:35] LABS: FREE T4 0.95 ng/dL (0.76-1.46); TSH 0.32 uIU/Ml (0.36-3.74)
[2023-12-23 17:39] LABS: Folate 2.5 ng/mL (8.6-20.0); Vitamin B12 403 pg/mL (193-986)
[2023-12-24 20:38] LABS: T3, Total 141 ng/dL (97-169)
== END 2023-12-23 05:04 | disposition home or self-care (01) ==
LOC: LBO 05:03
PROVIDERS: Internal Medicine; PCP Internal Medicine; Visit Provider Internal Medicine
DX: R11.10 Vomiting, unspecified (principal); E03.9 Hypothyroidism, unspecified
CPT/HCPCS: 36415; 82607; 82746; 84439; 84443; 84480

== ENCOUNTER 2024-01-26 18:27 | Emergency (ER) | payer OTHER, SELFPAY ==
[2024-01-26] VITALS (19 sets, daily range): BP systolic 123–139; BP diastolic 63–94; PULSE 81–113; RESP 10–23; TEMP 35.9–36.1; O2SAT 93–99
[2024-01-26] MEDS: Normal Saline 1,000 ML 1000 ML IV (18:55)
[2024-01-26] MEDS: Ondansetron 4 MG/2 ML VIAL IVP (18:56)
[2024-01-26] MEDS: Normal Saline Flush 10 ML SYR IVP (18:57)
--- NOTE | 2024-01-26 19:00 | DI.CT_ITS ---
Exam(s) CT ABDOMEN PELVIS W EXAM: CT ABDOMEN PELVIS W CLINICAL HISTORY: RUQ abd pain. TECHNIQUE: Imaging Protocol: Axial computed tomography images with coronal and sagittal reformatted images were created and reviewed CONTRAST MATERIAL: Intravenous: Omnipaque 350 Contrast volume:100 ml Oral: No COMPARISON: CT CT ABDOMEN PELVIS WO from 02/23/2023 FINDINGS: ABDOMEN and PELVIS: Lung Bases: No acute findings. Liver: Normal density. No suspicious mass. Gallbladder and biliary tract: Status post cholecystectomy. No biliary dilation. Pancreas: Normal density. No abnormal calcifications or inflammatory process. No evidence of mass. Spleen: Normal. Kidneys: Normal size, contour and axis. No radiodense stones. No obstructive uropathy. No suspicious masses seen. Adrenal glands: No masses seen. Vasculature: Abdominal aorta non-dilated. Soft tissues: Unremarkable. Bladder: No gross wall thickening. No calculi.No focal mass. Bowel: No obstruction. No bowel wall thickening. Appendix normal. Peritoneal cavity: No ascites. No focal collection. No mesenteric inflammatory response. Bones: Unremarkable for age. Reproductive organs: Unremarkable. Lymph nodes: No pathologically enlarged lymph nodes. IMPRESSION:: No acute abnormality in the abdomen or pelvis. RADIATION DOSE DELIVERED: 1,370.8mGy.cm Total DLP DATA REPOSITORY: All CT scans at this facility are submitted to the National Radiology Data Registry (NRDR) Dose Index Registry (DIR) with the [employer] (A[employer]). RADIATION OPTIMIZATION: All CT scans at this facility use at least one of these dose optimization te chniques: automated exposure control; mA and/or kV adjustment per patient size (includes targeted exa ms where dose is matched to clinical indication); or iterative reconstruction.
[2024-01-26 19:11] LABS: Abs Immature Grans 0.01 10^3/uL (0.0-0.06); Absolute Basophil Count 0.03 10^3/uL (0.0-0.2); Absolute Eosinophil Count 0.31 10^3/uL (0.0-0.7); Absolute Lymphocyte Count 1.89 10^3/uL (1.2-3.4); Absolute Monocyte Count 0.38 10^3/uL (0.1-0.8); Absolute Neutrophil Count 3.57 10^3/uL (1.2-6.7); Basophils % 0.5 %; HCT 39.9 % (36.0-46.0); HGB 12.9 g/dL (11.2-15.7); Immature Grans % 0.2 %; Lymphocytes % 30.5 %; MCH 29.4 pg (27.0-33.0); MCHC 32.3 % (32.0-36.0); MCV 91 fL (80-95); MPV 9.6 fL (8.0-11.0); Monocytes % 6.1 %; Neutrophils % 57.7 %; Platelet Count 240 10^3/uL (130-400); RBC 4.39 10^6/uL (3.93-5.22); RDW 13.5 % (11.7-14.6); RDW-SD 44.6 fL; WBC 6.19 10^3/uL (4.4-10.8)
--- NOTE | 2024-01-26 19:20 | W.ED.GENAD ---
Discharge Plan Disposition Patient Disposition: Home Condition: Stable Discharge Details Clinical Impression: Nausea & vomiting, Abdominal pain Primary Care Provider: Martin Raya ED Provider: Johanna More Home Meds and New Rx's Prescriptions: New ondansetron 4 mg tablet,disintegrating 4 mg PO Q8H PRN (Reason: nausea and vomiting) 4 Days Qty: 9 0RF Rx Instructions: Take 1 tablet up to 3 times daily as needed for nausea and vomiting 20 minutes prior to meals. diclofenac sodium 1 % gel 2 g topical QID PRN (Reason: joint pain) Qty: 100 0RF Rx Instructions: apply to single elbow, wrist or hand; for hand includes palm/fingers/back of hand No Action levothyroxine [Levoxyl] 125 MCG tablet 100 mcg PO DAILY liothyronine 5 MCG tablet 5 mcg PO BID epinephrine 0.3 MG/SYR auto-injector 0.3 mg IM PRN PRN Patient Comments: not used recently hydroxyzine HCl 10 mg tablet 10 mg PO QHS Patient Comments: TAKE 1 TO 2 TABLETS BY MOUTH 30 MIN BEFORE AT BEDTIME NEEDED FOR SLEEP Trintellix 10 mg tablet 10 mg PO DAILY buspirone 10 mg tablet 10 mg PO BID Patient Comments: TAKE ONE TABLET BY MOUTH TWICE A DAY Discharge Instructions Instructions: Abdominal Pain, Adult ED, Nausea and Vomiting, Adult ED Additional Instructions: At this time CT shows no acute abnormality or pelvic abnormality. Your labs no urinary tract infection, you are slightly dehydrated. You were given a liter of normal saline here in the ER. Please take the nausea medication up to 3 times daily as needed for nausea vomiting. Follow-up with your primary care provider to discuss an outpatient MRI if needed and continued pain. And further evaluation and treatment. Please take Tylenol or Ibuprofen with food every 4-6 hours as needed for pain and swelling. Practice bland diet, stay away from anything fried fatty spicy or dairy. You may also try clear liquids for a few days and see if this improves her symptoms. Referrals: Martin Raya [Primary Care Provider] - 5 days Discharge Data Discharge Date/Time-TO BE ENTERED AT DEPARTURE: 01/26/24 21:16 HPI General Mode of arrival: ambulatory. Date/Time Provider Initiated Documentation: 01/26/24 18:43. Limitations to Documentation: no limitations. Information obtained by: patient, RN notes reviewed and old records reviewed. HPI Narrative: 53-year-old female presents to the ER with a chief complaint of right upper quadrant abdominal pain status post cholecystectomy last February she reports that pain began on Thursday and has worsened. She has had a chronic nausea since November and vomits every morning bile. She also reports urine which is light green. Initial presentation she presents tachycardic slightly. On reevaluation her heart rate has improved. Related Data Home Medications Medication Instructions Recorded Confirmed epinephrine 0.3 mg/0.3 mL 0.3 mg IM PRN PRN 04/19/15 01/26/24 injection, auto-injector levothyroxine 125 mcg tablet 100 mcg PO DAILY 04/19/15 01/26/24 (Levoxyl) liothyronine 5 mcg tablet 5 mcg PO BID 04/19/15 01/26/24 hydroxyzine HCl 10 mg tablet 10 mg PO QHS 01/20/23 01/26/24 vortioxetine 10 mg tablet 10 mg PO DAILY 01/20/23 01/26/24 (Trintellix) buspirone 10 mg tablet 10 mg PO BID 09/12/23 01/26/24 diclofenac sodium 1 % topical gel 2 g topical QID PRN joint pain 01/26/24 #100 grams ondansetron 4 mg disintegrating 4 mg PO Q8H PRN nausea and 01/26/24 tablet vomiting 4 days #9 tabs Previous Rx's Medication Instructions Recorded diclofenac sodium 1 % topical gel 2 g topical QID PRN joint pain 01/26/24 #100 grams ondansetron 4 mg disintegrating 4 mg PO Q8H PRN nausea and 01/26/24 tablet vomiting 4 days #9 tabs Allergies Allergy/AdvReac Type Severity Reaction Status Date / Time azithromycin Allergy Severe Anaphylaxis Unverified 01/26/24 18:39 codeine Allergy Severe Anaphylaxis Unverified 01/26/24 18:39 honey Allergy Severe Anaphylaxis Unverified 01/26/24 18:39 morphine Allergy Severe Anaphylaxis Unverified 01/26/24 18:39 prednisone Allergy Severe Anaphylaxis Unverified 01/26/24 18:39 Sulfa (Sulfonamide Allergy Severe Anaphylaxis Unverified 01/26/24 18:39 Antibiotics) sulfamethoxazole Allergy Severe Anaphylaxis Unverified 01/26/24 18:39 [From Bactrim] trimethoprim [From Bactrim] Allergy Severe Anaphylaxis Unverified 01/26/24 18:39 venom-honey bee Allergy Severe Anaphylaxis Unverified 01/26/24 18:39 [bee venom (honey bee)] Penicillins Allergy Other (See Unverified 01/26/24 18:39 Comment) General Stated Complaint: Abd Prob JOHN: 3 Review of Systems All systems reviewed & are unremarkable except as noted in HPI and below Gastrointestinal Gastrointestinal: Reports as per HPI, Reports abdominal pain, Denies coffee ground emesis, Reports nausea and Reports vomiting Exam Narrative Exam Narrative: Constitutional: Alert and oriented x3. Appears stated age. Normal body habitus. Head: Normocephalic, no trauma. Eyes: Pupils PERRL, Red reflex noted, EOM's intact. Eyelids symmetrical without lesions, discharge, or swelling. ENT: Bilateral TM's WNL, External ear normal to inspection, no mastoid TTP, swelling, or erythema, Nasal turbinates WNL, no nasal discharge. Normal dentition, Posterior pharynx WNL, no exudate. Chest: RRR, Normal S1, S2, distal pulses intact. Resp: Lungs clear to auscultation bilaterally, no wheezes, rales, or rhonchi. Abdomen: Soft, non-distended, Normoactive bowel sounds all 4 quads. Musculoskeletal: Normal gait, Moves all 4 extremities without difficulty. Skin: No suspicious rashes or lesions. Capillary refill less than 2 sec. Neurologic: Cranial nerves II-XII intact. Alert and oriented x 3. Motor: No deficits noted. Sensory: Intact bilaterally all 4 extremities. Hematologic/Lymphatic: No ecchymosis, no lymphadenopathy. Course Vital Signs Vital signs: Vital Signs Temperature 35.9 C L 01/26/24 18:33 Pulse 113 H 01/26/24 18:33 Respiratory Rate 10 L 01/26/24 18:33 Blood Pressure 139/94 H 01/26/24 18:33 Pulse Oximetry 99 01/26/24 18:33 Temperature 35.9 C L 01/26/24 19:03 Temperature Source Temporal Artery Scan 01/26/24 19:03 Pulse 113 H 01/26/24 19:03 Respiratory Rate 10 L 01/26/24 19:03 Respiratory Effort Normal 01/26/24 19:02 Blood Pressure 139/94 H 01/26/24 19:03 Blood Pressure Position Sitting 01/26/24 19:03 Pulse Oximetry 99 01/26/24 19:03 Oxygen Delivery Method Room Air 01/26/24 19:03 Oxygen Flow Rate 0 01/26/24 19:03 Pain Level 5 01/26/24 19:03 Lab/Test Results Lab/Test Results: Laboratory Tests Range/Units 01/26/24 18:53 WBC (4.4-10.8) 10^3/uL 6.19 RBC (3.93-5.22) 10^6/uL 4.39 Hgb (11.2-15.7) g/dL 12.9 Hct (36.0-46.0) % 39.9 MCV (80-95) fL 91 MCH (27.0-33.0) pg 29.4 MCHC (32.0-36.0) % 32.3 RDW (11.7-14.6) % 13.5 Plt Count (130-400) 10^3/uL 240 MPV (8.0-11.0) fL 9.6 Immature Gran % % 0.2 Neutrophils % % 57.7 Lymphocytes % % 30.5 Monocytes % % 6.1 Eosinophils % % 5.0 Basophils % % 0.5 Nucleated RBC % (0.0-0.3) % 0.0 Absolute Neutrophils (1.2-6.7) 10^3/uL 3.57 Absolute Lymphocytes (1.2-3.4) 10^3/uL 1.89 Absolute Monocytes (0.1-0.8) 10^3/uL 0.38 Absolute Eosinophils (0.0-0.7) 10^3/uL 0.31 Absolute Basophils (0.0-0.2) 10^3/uL 0.03 Medical Decision Making 53-year-old female presents to the ER with a chief complaint of right upper quadrant abdominal pain status post cholecystectomy last February she reports that pain began on Thursday and has worsened. She has had a chronic nausea since November and vomits every morning bile. She also reports urine which is light green. Initial presentation she presents tachycardic slightly. On reevaluation her heart rate has improved. Workup ordered including CBC CMP, lipase, urinalysis CT abdomen pelvis. Liter of normal saline ordered. I did offer analgesic which patient declined at this time. Labs are all largely within normal limits at this time, no leukocytosis creatinine slightly elevated at 1.1, GFR 59 glucose 114. I did discuss labs and radiology report with patient who verbalized understanding. Discussed tricked return instructions and home care. She was given a bottle of Zofran ODT 4 mg to go. Patient was discharged in hemodynamically stable condition. All their questions were answered to the best my ability. This text was generated using [employer] system, please disregard any oddities of phrase or misspellings. Medical Records Medical records reviewed: Yes I reviewed the patient's medical records. Lab Data Lab results reviewed: Yes I reviewed the patient's lab results. Labs: Laboratory Tests Range/Units 01/26/24 01/26/24 18:53 20:12 WBC (4.4-10.8) 10^3/uL 6.19 RBC (3.93-5.22) 10^6/uL 4.39 Hgb (11.2-15.7) g/dL 12.9 Hct (36.0-46.0) % 39.9 MCV (80-95) fL 91 MCH (27.0-33.0) pg 29.4 MCHC (32.0-36.0) % 32.3 RDW (11.7-14.6) % 13.5 Plt Count (130-400) 10^3/uL 240 MPV (8.0-11.0) fL 9.6 Immature Gran % % 0.2 Neutrophils % % 57.7 Lymphocytes % % 30.5 Monocytes % % 6.1 Eosinophils % % 5.0 Basophils % % 0.5 Nucleated RBC % (0.0-0.3) % 0.0 Absolute Neutrophils (1.2-6.7) 10^3/uL 3.57 Absolute Lymphocytes (1.2-3.4) 10^3/uL 1.89 Absolute Monocytes (0.1-0.8) 10^3/uL 0.38 Absolute Eosinophils (0.0-0.7) 10^3/uL 0.31 Absolute Basophils (0.0-0.2) 10^3/uL 0.03 Sodium (136-145) mmol/L 140 Potassium (3.5-5.1) mmol/L 3.5 Chloride (98-107) mmol/L 103 Carbon Dioxide (21.0-32.0) mmol/L 30.1 Anion Gap (3-11) mmol/L 6.9 BUN (7-18) mg/dL 16 Creatinine (0.55-1.02) mg/dL 1.1 H Est GFR (CKD-EPI 2020) (mL/min/1.73m2) 59.34 Glucose (74-106) mg/dL 114 H Calcium (8.5-10.1) mg/dL 8.8 Magnesium (1.8-2.4) mg/dL 1.8 Total Bilirubin (0.2-1.0) mg/dL 0.3 AST (15-37) U/L 15 ALT (14-59) U/L 28 Alkaline Phosphatase (46-116) U/L 81 Total Protein (6.4-8.2) g/dL 7.2 Albumin (3.4-5.0) g/dL 3.8 Lipase (16-77) U/L 71 Urine Color (Yellow) Yellow Urine Clarity (Clear) Clear Urine pH (5-8) 6.5 Ur Specific Ethel (1.005-1.025) 1.010 Urine Protein (Neg-Trace) mg/dL Negative Urine Ketones (Negative) mg/dL Negative Urine Blood (Negative) Negative Urine Nitrite (Negative) Negative Urine Bilirubin (Negative) Negative Urine Urobilinogen (Up to 0.2) mg/dL 0.2 Ur Leukocyte Esterase (Negative) Negative Urine Glucose (Negative) mg/dL Negative Quality:SDOH Health Related Social Needs: No Data to Display PFSH All Active Problems (Updated 01/26/24 @ 20:59 by Johanna More NP) Abdominal pain (Acute) Nausea & vomiting (Acute) Abnormal CT of the abdomen (Acute) pt was having diarrhea at the time Needs CE once GB out Calculus of gallbladder with chronic cholecystitis (Acute) Weight loss due to medication (Acute) Herniated disc, cervical (Acute) 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 Hypothyroidism (Chronic) Cervical neuralgia (Acute) Discharge planning issues (Acute) DVT prophylaxis (Acute) Chest pain (Acute) Surgical History History of laparoscopic cholecystectomy (~02/20/23) Social History Smoking/Tobacco Use Status: Never Smoking risk assessment performed?: Yes Alcohol Intake: current Alcohol Intake frequency: holidays/special occasions only Alcohol type: other Drug use: Never Substance use type: does not use Housing: house Do you feel safe at home: Yes Do you feel safe in your relationship?: Yes History History Para 3 Hx # Term Pregnancies Multiple births Hx # Pregnancies Ectopic pregnancies AB induced Hx Number of Living Children AB spontaneous
[2024-01-26 19:27] LABS: ALT 28 U/L (14-59); AST 15 U/L (15-37); Albumin 3.8 g/dL (3.4-5.0); Alkaline Phosphatase 81 U/L (46-116); Anion Gap 6.9 mmol/L (3-11); BUN 16 mg/dL (7-18); Bilirubin, Total 0.3 mg/dL (0.2-1.0); CO2 30.1 mmol/L (21.0-32.0); CREATININE 1.1 mg/dL (0.55-1.02); Calcium 8.8 mg/dL (8.5-10.1); Chloride 103 mmol/L (98-107); Estimated GFR 59.34 (mL/min/1.73m2); Glucose 114 mg/dL (74-106); Lipase 71 U/L (16-77); Magnesium 1.8 mg/dL (1.8-2.4); Potassium 3.5 mmol/L (3.5-5.1); Sodium 140 mmol/L (136-145); Total Protein 7.2 g/dL (6.4-8.2)
[2024-01-26] MEDS: Omnipaque 350 MG/ML 100 ML BTL IJ (19:42)
[2024-01-26] MEDS: Normal Saline - Diluent 50 ML VIAL IJ (19:43)
[2024-01-26 20:22] LABS: Bilirubin Negative (Negative); Blood Negative (Negative); Clarity Clear (Clear); Glucose Negative (Negative); Ketones Negative (Negative); Leukocyte Esterase Negative (Negative); Nitrite Negative (Negative); Urobilinogen 0.2 mg/dL (Up to 0.2); pH 6.5 (5-8)
--- NOTE | 2024-01-26 20:47 | DI.VRAD_ITS ---
PROCEDURE INFORMATION: Exam: CT Abdomen And Pelvis With Contrast Exam date and time: 01/26/2024 7:47 PM Age: 53 years old Clinical indication: Abdominal pain; Localized; Right upper quadrant (ruq); Prior surgery; Surgery date: 6+ months; Surgery type: Cholecystectomy 1 year ago TECHNIQUE: Imaging protocol: Computed tomography of the abdomen and pelvis with contrast. Contrast material: OMNIPAQUE 350; Contrast volume: 100 ml; Contrast route: INTRAVENOUS (IV); COMPARISON: CT ABDOMEN PELVIS WO 02/23/2023 1:53 PM FINDINGS: Liver: Simple hepatic cysts. Gallbladder and bile ducts: Gallbladder surgically absent. Pancreas: Normal. Spleen: Normal. Adrenal glands: Normal. No mass. Kidneys and ureters: Normal. Stomach and bowel: Normal. Appendix: Appendix normal. Intraperitoneal space: Unremarkable. No free air. No significant fluid collection. Vasculature: Atherosclerotic disease of the abdominal aorta and iliac arteries. Lymph nodes: Unremarkable. No enlarged lymph nodes. Urinary bladder: Unremarkable as visualized. Reproductive: Unremarkable as visualized. Bones/joints: L5-S1 degenerative disc space narrowing and vacuum disc phenomenon. Soft tissues: Normal. IMPRESSION: No acute abdominal or pelvic abnormality. Dictated and Authenticated by: Michael Cardenas MD. Ordering:COREY Spencer MD
[2024-01-26] MEDS: Ondansetron O.D.T. 4 MG TABEF, 3 TABS/BTL PO (21:08)
== END 2024-01-26 21:16 | disposition home or self-care (01) ==
PROVIDERS: Emergency Provider Registered Nurse Emergency; PCP Internal Medicine
DX: R10.11 Right upper quadrant pain (principal); R11.2 Nausea with vomiting, unspecified; Z90.49 Acquired absence of other specified parts of digestive tract; Z86.711 Personal history of pulmonary embolism; Z86.718 Personal history of other venous thrombosis and embolism; Z86.73 Personal history of transient ischemic attack (TIA), and cerebral infarction without residual deficits
CPT/HCPCS: 36415; 80053; 83690; 96361; 96374; 99285; 74177; 81003; 83735; 85025; J2405; J3490

== ENCOUNTER 2024-04-04 03:23 | Outpatient (CLI) | payer OTHER, SELFPAY ==
[2024-04-04 10:02] LABS: HCT 37.5 % (36.0-46.0); HGB 12.3 g/dL (11.2-15.7); MCHC 32.8 % (32.0-36.0); MCV 92 fL (80-95); MPV 9.1 fL (8.0-11.0); Platelet Count 168 10^3/uL (130-400); RDW 12.9 % (11.7-14.6); RDW-SD 42.7 fL; WBC 4.83 10^3/uL (4.4-10.8)
== END 2024-04-04 03:24 | disposition home or self-care (01) ==
LOC: LBO 03:24
PROVIDERS: PCP Internal Medicine; Visit Provider Obstetrics & Gynecology
DX: Z01.818 Encounter for other preprocedural examination (principal)
CPT/HCPCS: 36415; 85027; 86850; 86900; 86901

== ENCOUNTER 2024-04-06 08:46 | Day surgery (SDC) | payer OTHER, SELFPAY ==
[2024-04-06] VITALS (7 sets, daily range): BP systolic 111–128; BP diastolic 53–81; PULSE 61–79; RESP 12–16; TEMP 36–36.5; O2SAT 97–100; BMI 38.9
[2024-04-06] MEDS: Lactated Ringers 1,000 ML 125 ML IV (09:45)
--- NOTE | 2024-04-06 10:01 | ANES.PREOP_ITS ---
General Info Date of Service Date Performed: 04/06/24 Height: 5 ft 7 in Weight: 112.8 kg Body Mass Index (BMI): 38.9 Surgical Procedure: Operation Date: 04/06/24 09:40 Proposed Procedure Side Surgeon p Dilation & Curettage with Hysteroscopy Jayshree Keller MD Meds Allergies and Home Medications Allergies Allergy/AdvReac Type Severity Reaction Status Date / Time azithromycin Allergy Severe Anaphylaxis Verified 04/06/24 09:20 codeine Allergy Severe Anaphylaxis Verified 04/06/24 09:20 honey Allergy Severe Anaphylaxis Verified 04/06/24 09:20 morphine Allergy Severe Anaphylaxis Verified 04/06/24 09:20 prednisone Allergy Severe Anaphylaxis Verified 04/06/24 09:20 Sulfa (Sulfonamide Allergy Severe Anaphylaxis Verified 04/06/24 09:20 Antibiotics) sulfamethoxazole (From Allergy Severe Anaphylaxis Verified 04/06/24 09:20 Bactrim) trimethoprim (From Bactrim) Allergy Severe Anaphylaxis Verified 04/06/24 09:20 venom-honey bee (bee venom Allergy Severe Anaphylaxis Verified 04/06/24 09:20 (honey bee)) Penicillins Allergy Other (See Verified 04/06/24 09:20 Comment) Home Medication ?Medication ?Instructions ?Recorded epinephrine 0.3 mg/0.3 mL 0.3 mg IM PRN PRN 04/19/15 injection, auto-injector levothyroxine 125 mcg tablet 100 mcg PO DAILY 04/19/15 (Levoxyl) liothyronine 5 mcg tablet 5 mcg PO DAILY 04/19/15 hydroxyzine HCl 10 mg tablet 10 mg PO QHS 01/20/23 vortioxetine 10 mg tablet 10 mg PO DAILY 01/20/23 (Trintellix) buspirone 10 mg tablet 10 mg PO BID 09/12/23 diclofenac sodium 1 % topical gel 2 g topical QID PRN joint pain 01/26/24 #100 grams vitamin B complex 1 cap PO DAILY 03/25/24 Current Visit Medications: Current Medications Generic Name Dose Route Start Last Admin Trade Name Freq PRN Reason Stop Dose Admin Ringer's Solution 1,000 mls @ 125 mls/hr 04/06/24 06:00 04/06/24 09:45 IV 04/06/24 23:59 125 mls/hr INFUSION NELLIE Administration IV Miscellaneous Supplies 1 each 04/06/24 06:00 Iv Access IV 04/06/24 23:59 DIRECTED NELLIE Sodium Chloride 0 ml 04/06/24 06:00 Normal Saline Flush 10 Ml Syr IV 04/06/24 23:59 PRN PRN Sodium Chloride 0 ml 04/06/24 06:00 Normal Saline 10 Ml Vial IJ 04/06/24 23:59 DIRECTED PRN Sterile Water 0 ml 04/06/24 06:00 Water,Injection,Sterile 10 Ml Vial IJ 04/06/24 23:59 DIRECTED PRN PFSH Active Problems Active Problems: Problem Status Onset Code Pre-op evaluation Acute Z01.818 Endometrial polyp Acute N84.[address] of the abdomen Acute R93.5 Calculus of gallbladder with chronic cholecystitis Acute K80.10 Weight loss due to medication Acute R63.4, T50.905A Herniated disc, cervical Acute M50.20 CVA (cerebral vascular accident) Chronic I63.9 Cardiomyopathy Acute I42.9 Elevated LFTs Acute R79.89 Gallstones without obstruction of gallbladder Acute K80.20 Malaise and fatigue Acute R53.81, R53.83 Pulmonary embolus, right Acute I26.99 Hypothyroidism Chronic E03.9 Cervical neuralgia Acute M54.12 Chest pain Acute R07.9 Surgical History Surgical History History of laparoscopic cholecystectomy (~02/20/23) Tobacco Smoking/Tobacco Use Status: Never Passive smoking exposure: Yes Second hand exposure: Yes Alcohol Alcohol Intake: current Alcohol intake frequency: holidays/special occasions only Alcohol type: other Substance Use Substance use: Never Substance use type: does not use Prental History History 6 Para 3 Hx # Term Pregnancies Multiple births Hx # Pregnancies Ectopic pregnancies AB induced Hx Number of Living Children AB spontaneous 3 Past Pregnancies Del. Date GA/Weeks # Preg Succ Route Wgt Sex Labor Lgth Anesth esia Location Prov Complic 06/02/90 No vaginal 06/26/94 No vaginal 12/28/96 No vaginal Vital Signs and Lab Results Vital Signs Most Recent Vital Signs in EMR: Most Recent Vital Signs Temp Pulse Resp BP Pulse Ox 36.5 C 79 16 121/80 97 04/06/24 09:05 04/06/24 09:05 04/06/24 09:05 04/06/24 09:05 04/06/24 09:05 Lab Results Blood Type / Crossmatch: Antibody Screen NEGATIVE 04/04/24 Complete Blood Count: White Blood Count 4.83 10^3/uL (4.4-10.8) 04/04/24 09:58 Red Blood Count 4.10 10^6/uL (3.93-5.22) 04/04/24 09:58 Hemoglobin 12.3 g/dL (11.2-15.7) 04/04/24 09:58 Hematocrit 37.5 % (36.0-46.0) 04/04/24 09:58 Platelet Count 168 10^3/uL (130-400) 04/04/24 09:58 Complete Metabolic Panel: No Data to Display Liver Function Panel: No Data to Display Coagulation Panel: No Data to Display Cardiac Panel: No Data to Display Arterial Blood Gas: No Data to Display Venous Blood Gas: No Data to Display Pancreas Panel: No Data to Display Thyroid Panel: No Data to Display Infectious Disease: No Data to Display Blood Cultures: No Data to Display Toxicology Panel: No Data to Display Anesthesia Assessment and Plan Anesthesia History Personal History: No History of Anesthesia Complications Family History: No Family History of Anesthesia Complications Exercise Tolerance Exercise Tolerance: Metabolic Equivalents>4 Pertinent Negatives Pertinent Negatives: No Symptoms of GERD Cardiac & Pulmonary Exam Cardiac Exam: Normal S1/S2 Heart Sounds Pulmonary Exam: Clear Bilateral Breath Sounds Implantable Cardiac Device Does patient have a Pacemaker or an ICD?: No Airway Exam Known Difficult Airway: No Mallampati Class: 3 Mouth Opening: Narrow (< 3cm) Thyromental Distance: Less than 3 cm Neck Range of Motion: Limited ROM Neck Circumference: Normal Teeth Condition: Normal Dentition ASA Classification ASA Score: ASA 2 Emergency Case?: No NPO Status NPO Status: NPO Clears >2 hours, Solids >8 hours Anesthesia Plan Resuscitation Status: Full Code Anesthesia Technique: General Anesthesia Airway Planned: LMA Monitors Used: Standard Monitors
--- NOTE | 2024-04-06 10:49 | ENDOMET_PTH ---
PATIENT: Jermaine Mancera LOC: [facility] U#:[id number] AGE/SX: 53/F ROOM: RE04/06/[address]: Jayshree Keller MD : [id number] BED: DIS: 04/06/2024 SPEC #: [id number] RECD: 04/06/24 13:24 STATUS: SHELBI REQ #: [id number] ADAM: 04/06/24 10:[address]: Jayshree Keller DEPT: Surgical Specimen RECD BY: Zahira Aden ENTERED: 04/06/24 13:25 SP TYPE: Endomet OTHR DR: Martin Raya Tissues: 1 - ENDOMETRIUM BX/CURRETTE 2 - ENDOMETRIUM BX/CURRETTE Procedures: GROSS AND MICRO LEVEL 4 Comments: [id number]
--- NOTE | 2024-04-06 11:23 | ROE_ITS ---
Date of service: 04/06/24 Time of Service: 10:30 Operative Note Operative Note DATE OF PROCEDURE: 04/06/24 PRE-OP DIAGNOSIS: Endometrial polyp POST-OP DIAGNOSIS: same PROCEDURE: Hysteroscopy, D&C, polypectomy SURGEON: Jayshree Keller Refer to Anesthesia Record ESTIMATED BLOOD LOSS: 20 COMPLICATIONS: None Patient was transported to: PACU Patient's condition: stable Indications: Pt had been experiencing cramping and some dark discharge and had a pelvic sono that showed an endometrial polyp. She desires removal. Findings: Normal appearing external genitalia, vagina and cervix. Uterine cavity normal appearing except for an endometrial polyp attached to the posterior wall. Procedure Description: After informed consent was signed the patient was taken to the operating room and given General room air anesthesia. SCDs were placed on her legs. She was prepped and draped in the dorsal lithotomy position in the [facility]. A time out was performed. Her bladder was drained of urine if not done immediately prior to entrance to the OR. Exam under anesthesia revealed normal external genitalia, vagina normal for age and a normal sized uterus. A speculum was placed into the vagina to reveal the cervix. The anterior lip of the cervix was grasped with a single tooth tenaculum. The cervix was dilated. The myosure hysteroscope was assembled, primed and turned out. It was inserted into the uterine cavity confirming the presence of a uterine polyp. The myosure device was inserted and used to remove the polyp under direct visualization. The scope was removed. The tenaculum was removed from the cervix with good hemostasis. The speculum was removed from the vagina. There was a fluid deficit of 70ml. The patient was placed back into the supine position. She was moved to the stretcher and taken to the recovery room in stable condition.
--- NOTE | 2024-04-06 11:27 | W.ANESPOSTOP ---
Postoperative Evaluation Date, Time and Location Date Performed: 04/06/24 Time Performed: 11:27 Patient Location: Day Surgery Unit Vital Signs Most Recent Imported Vital Signs: Most Recent Vital Signs Temp Pulse Resp BP Pulse Ox 36.3 C L 70 12 114/63 98 04/06/24 11:05 04/06/24 11:05 04/06/24 11:05 04/06/24 11:05 04/06/24 11:05 Pain Score Most Recent Pain Score: Most Recent Pain Score Pain Level 2 04/06/24 11:05 Assessment Mental Status: Awake (Alert & Oriented to Patient Baseline) Airway and Respiratory Function: Patent airway with normal (patient baseline) respiratory exam Cardiovascular Function: Hemodynamically Stable Hydration Status: Adequately Hydrated Nausea & Vomiting: No Nausea or Vomiting Pain: Pt. Denies Any Pain Peripheral Nerve Block: Patient did not receive a nerve block
== END 2024-04-06 12:30 | disposition home or self-care (01) ==
PROVIDERS: PCP Internal Medicine; Visit Provider Obstetrics & Gynecology
PROC: 0UDB8ZZ Extraction of Endometrium, Via Natural or Artificial Opening Endoscopic (ICD-10-PCS; CPT 58558; principal; 2024-04-06 09:30)
DX: N84.0 Polyp of corpus uteri (principal)
CPT/HCPCS: 58558; 88305; J0131; J0665; J1100; J1885; J2001; J2405; J2704

== ENCOUNTER 2024-08-17 12:50 | Emergency (ER) | payer OTHER, SELFPAY ==
[2024-08-17 12:55] VITALS: BP 130/75; PULSE 82; RESP 20; TEMP 36.8; O2SAT 98
--- NOTE | 2024-08-17 13:14 | ED.GENADUL_ITS ---
Discharge Plan Disposition Patient Disposition: Home Condition: Stable Discharge Details Clinical Impression: Urinary urgency Primary Care Provider: Martin Raya ED Provider: Michael Quispe Home Meds and New Rx's Prescriptions: Continued estradiol 0.01 % (0.1 mg/gram) cream 0.25 g vaginal .twice weekly Qty: 42.5 4RF Rx Instructions: Use Nightly x2wks. Then decrease to 2-3x/weekly. Massage olive sized amount around vaginal opening. vitamin B complex Capsule 1 cap PO DAILY levothyroxine [Levoxyl] 125 MCG tablet 100 mcg PO DAILY liothyronine 5 MCG tablet 5 mcg PO DAILY epinephrine 0.3 MG/SYR auto-injector 0.3 mg IM PRN PRN Patient Comments: not used recently hydroxyzine HCl 10 mg tablet 10 mg PO QHS Patient Comments: TAKE 1 TO 2 TABLETS BY MOUTH 30 MIN BEFORE AT BEDTIME NEEDED FOR SLEEP Trintellix 10 mg tablet 10 mg PO DAILY buspirone 10 mg tablet 10 mg PO BID Patient Comments: TAKE ONE TABLET BY MOUTH TWICE A DAY Zepbound 5 mg/0.5 mL pen injector 2.7 mg SUBCUT .weekly Patient Comments: INJECT CONTENTS OF ONE PEN INJECTOR SUBCUTANEOUSLY ONCE WEEKLY Discharge Instructions Additional Instructions: Your blood work and viral swab and urine did not show any concerning findings at this time If symptoms do not improve within a week follow-up with your primary care pr ovider If you feel more ill, have severe abdominal pain or high fevers return to the emergency department for reevaluation HPI General Mode of arrival: ambulatory . Date/Time Provider Initiated Documentation: 08/17/24 12:51 . Limitations to Documentation: no limitations . Information obtained by: patient . History of Present Illness 53 year old F presents to the emergency department with the chief complaint of body aches, urinary frequency, described as moderate, Patient started experiencing this day(s) (2) and it has been constant. No relieving factors improve symptom(s), No exacerbating factors reported . Patient notes denies chest pain, fever/chills and shortness of breath. Patient did receive the following treatments prior to arrival, none Related Data Home Medications ?Medication ?Instructions ?Recorded ?Confirmed epinephrine 0.3 mg/0.3 mL 0.3 mg IM PRN PRN 04/19/15 08/17/24 injection, auto-injector levothyroxine 125 mcg tablet 100 mcg PO DAILY 04/19/15 08/17/24 (Levoxyl) liothyronine 5 mcg tablet 5 mcg PO DAILY 04/19/15 08/17/24 hydroxyzine HCl 10 mg tablet 10 mg PO QHS 01/20/23 08/17/24 vortioxetine 10 mg tablet 10 mg PO DAILY 01/20/23 08/17/24 (Trintellix) buspirone 10 mg tablet 10 mg PO BID 09/12/23 08/17/24 vitamin B complex 1 cap PO DAILY 03/25/24 08/17/24 estradiol 0.01% (0.1 mg/gram) 0.25 g vaginal .twice weekly #42.5 04/29/24 08/17/24 vaginal cream grams tirzepatide (weight loss) 5 mg/0.5 2.7 mg subcut .weekly 08/17/24 08/17/24 mL subcutaneous pen injector (Zepbound) Previous Rx's ?Medication ?Instructions ?Recorded estradiol 0.01% (0.1 mg/gram) 0.25 g vaginal .twice weekly #42.5 04/29/24 vaginal cream grams Allergies Allergy/AdvReac Type Severity Reaction Status Date / Time azithromycin Allergy Severe Anaphylaxis Verified 08/17/24 12:59 codeine Allergy Severe Anaphylaxis Verified 08/17/24 12:59 honey Allergy Severe Anaphylaxis Verified 08/17/24 12:59 morphine Allergy Severe Anaphylaxis Verified 08/17/24 12:59 prednisone Allergy Severe Anaphylaxis Verified 08/17/24 12:59 Sulfa (Sulfonamide Allergy Severe Anaphylaxis Verified 08/17/24 12:59 Antibiotics) sulfamethoxazole (From Allergy Severe Anaphylaxis Verified 08/17/24 12:59 Bactrim) trimethoprim (From Bactrim) Allergy Severe Anaphylaxis Verified 08/17/24 12:59 venom-honey bee (bee venom Allergy Severe Anaphylaxis Verified 08/17/24 12:59 (honey bee)) gluten Allergy Intermediate Diarrhea Verified 08/17/24 12:59 Penicillins Allergy Other (See Verified 08/17/24 12:59 Comment) General Stated Complaint: Urinary JOHN: 3 Review of Systems All systems reviewed & are unremarkable except as noted in HPI and below Constitutional Constitutional: Denies chills, Denies fever(s) and Denies weakness Cardiovascular Cardiovascular: Denies chest pain and Denies dyspnea Respiratory Respiratory: Denies cough and Denies dyspnea Gastrointestinal Gastrointestinal: Denies abdominal pain, Denies nausea and Denies vomiting Genitourinary Genitourinary: Reports dysuria and Reports urinary urgency Musculoskeletal Musculoskeletal: Denies joint swelling Neurologic Neurologic: Denies weakness Exam Const General: no acute distress Orientation: alert [facility] Head: normal to inspection Ears: external ears normal General nose exam: external nose normal Mouth: moist mucous membranes Eyes General: appearance normal, both eyes and all related structures Neck Neck: normal visual inspection Resp Effort & Inspection: normal respiratory effort and able to speak in complete sentences Auscultation: clear to auscultation bilaterally Cardio Jugular venous pressure: no JVD Rate: regular rate Heart Sounds: no murmurs GI Palpation: nontender Skin General skin exam: no rashes or lesions noted Neuro General: patient alert and patient oriented x3 Extrem General: normal to inspection Psych Mental Status: mental status grossly normal Course Vital Signs Vital signs: Vital Signs Temperature 36.8 C 08/17/24 12:55 Pulse 82 08/17/24 12:55 Respiratory Rate 20 08/17/24 12:55 Blood Pressure 130/75 08/17/24 12:55 Pulse Oximetry 98 08/17/24 12:55 Temperature 36.8 C 08/17/24 12:55 Pulse 82 08/17/24 12:55 Respiratory Rate 20 08/17/24 12:55 Blood Pressure 130/75 08/17/24 12:55 Pulse Oximetry 98 08/17/24 12:55 Oxygen Delivery Method Room Air 08/17/24 12:55 Oxygen Flow Rate 0 08/17/24 12:55 Pain Level 4 08/17/24 13:08 Comment mid upper back 08/17/24 13:08 Medical Decision Making 53-year-old female comes in with 2 to 3 days of bodyaches and peak urination and fatigue. Denies any chest pain, fevers, headaches, vomiting, rashes. She denies any severe back pain. She is well-appearing on exam. She has clear lung sounds, no JVD, soft nontender abdomen. Given her fatigue we will check a CBC and CMP to evaluate for anemia and electrolyte abnormalities. She has no fever so I doubt sepsis. Given the body aches will check Fluvid and also check a UA given her urinary symptoms and reassess. Lab work unremarkable, UA also not concerning for UTI. Patient is stable. Discussed results with her and given reassuring workup feel she is stable for discharge to follow-up with her PCP, return precautions given Differential Diagnosis Differential Diagnosis: URI, COVID, UTI Quality:SDOH Health Related Social Needs: No Data to Display PFSH All Active Problems (Updated 08/17/24 @ 14:21 by Michael Quispe MD) Urinary urgency (Acute) Atrophic vaginitis (Acute) Abnormal CT of the abdomen (Acute) pt was having diarrhea at the time Needs CE once GB out Calculus of gallbladder with chronic cholecystitis (Acute) Weight loss due to medication (Acute) Herniated disc, cervical (Acute) 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 no care home anti coag required- per pt. Hypothyroidism (Chronic) Cervical neuralgia (Acute) Chest pain (Acute) Medical History (Updated 08/17/24 @ 14:21 by Michael Quispe MD) Endometrial polyp Removed 04/06/24 Surgical History History of laparoscopic cholecystectomy (~02/20/23) Social History (Updated 03/25/24 @ 13:00 by Hermelinda Smith) Smoking/Tobacco Use Status: Never Second Hand Exposure: Yes Smoking risk assessment performed?: Yes Alcohol Intake: current Alcohol Intake frequency: holidays/special occasions only Alcohol type: other Drug use: Never Substance use type: does not use Household members: spouse and family Housing: house 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 Sexually active: Yes Current gender identity: female What is your relationship status?: Panel score (0-1 are the most socially isolated patients): 1 What type of physical activity do you participate in: none Seatbelt use: always Helmet use: Yes Drive intox or ride w/intox commercial collections driver: No Do you feel safe at home: Yes Do you feel safe in your relationship?: Yes Female Reproductive History Menstrual Age of Menarche: 7 History History 6 Para 3 Hx # Term Pregnancies Multiple births Hx # Pregnancies Ectopic pregnancies AB induced Hx Number of Living Children AB spontaneous 3 Past Pregnancies Del. Date GA/Weeks # Preg Succ Route Wgt Sex Labor Lgth Anesth esia Location Prov Complic 06/02/90 No vaginal 06/26/94 No vaginal 12/28/96 No vaginal
[2024-08-17 13:20] LABS: Bilirubin Negative (Negative); Blood Trace-intact (Negative); Clarity Clear (Clear); Glucose Negative (Negative); Ketones Negative (Negative); Leukocyte Esterase Negative (Negative); Nitrite Negative (Negative); Specific Gravity 1.015 (1.005-1.025); Urobilinogen 0.2 mg/dL (Up to 0.2)
[2024-08-17 13:32] LABS: Abs Immature Grans 0.02 10^3/uL (0.0-0.06); Absolute Basophil Count 0.01 10^3/uL (0.0-0.2); Absolute Eosinophil Count 0.19 10^3/uL (0.0-0.7); Absolute Lymphocyte Count 1.31 10^3/uL (1.2-3.4); Absolute Monocyte Count 0.39 10^3/uL (0.1-0.8); Absolute Neutrophil Count 3.42 10^3/uL (1.2-6.7); Basophils % 0.2 %; Eosinophils % 3.6 %; HCT 38.9 % (36.0-46.0); HGB 13.1 g/dL (11.2-15.7); Immature Grans % 0.4 %; Lymphocytes % 24.5 %; MCHC 33.7 % (32.0-36.0); MCV 89 fL (80-95); MPV 9.5 fL (8.0-11.0); Monocytes % 7.3 %; Platelet Count 189 10^3/uL (130-400); RBC 4.37 10^6/uL (3.93-5.22); RDW 12.2 % (11.7-14.6); RDW-SD 39.7 fL; WBC 5.34 10^3/uL (4.4-10.8)
--- OUTSIDE RECORDS SUMMARY | 2024-08-17 13:35 | XMS_ITS | Clinical Summary ---
Author Organization [facility] Address [address] [place] [address] Care Team Providers Care Cold Rolling Supervisor Name Role Phone Unknown, Provider MD Primary Care Provider Unava ilable Social History Tobacco Use Types Packs/Day Years Used Date Smoking Tobacco: Never Assessed Comments Unknown Sex and Gender Information Value Date Recorded Sex Assigned at Not on file Legal Sex Female 18:22 EST Gender Identity Not on file Sexual Orientation Not on file Plan of Treatment Health Maintenance Due Date Last Done Comments Hepatitis C Screen 1970 Hepatitis B Vaccine (1 of 3 - 19+ 3-dose series) 12/19 COVID-19 Vaccine (2023- season) 2024 Insurance Care Teams Cold Rolling Supervisor Relationship Specialty Start Date End Date Unknown, Provider, PCP - General 06/22/15
--- OUTSIDE RECORDS SUMMARY | 2024-08-17 13:35 | XMS_ITS | Referral Summary ---
Author Organization [facility] Address [address] [place] [address] Care Team Providers Care Metal Reclamation Kettle Tender Name Role Phone Unknown, Provider MD Primary Care Provider Unava ilable Social History Tobacco Use Types Packs/Day Years Used Date Smoking Tobacco: Never Assessed Comments Unknown Sex and Gender Information Value Date Recorded Sex Assigned at Not on file Legal Sex Female 18:22 EST Gender Identity Not on file Sexual Orientation Not on file Plan of Treatment Not on file Insurance Care Teams Metal Reclamation Kettle Tender Relationship Specialty Start Date End Date Unknown, Provider, PCP - General 06/22/15
--- OUTSIDE RECORDS SUMMARY | 2024-08-17 13:35 | XMS_ITS | Encounter Summary ---
Author Organization Health system Address [address] [place] [address] Care Team Providers Care Mold Repairer Name Role Phone Unknown, Provider Primary Care Provider Amaris ilto Encounter Details Date Type Department Care Team (Late st Contact Info) Description 02/20/2023 Lab Requisition [facility] Pathology & Laboratory Medicine - [address] [address] Raimundo Fish MD [address] [place] [address], [address] [place], [place] [id number] Calculus of gallbladder with chronic cholecystitis without obstruction Social History Tobacco Use Types Packs/Day Years Used Date Smoking Tobacco: Never Assessed Comments Unknown Sex and Gender Information Value Date Recorded Sex Assigned at Not on file Legal Sex Female 18:22 EST Gender Identity Not on file Sexual Orientation Not on file documented as of this encounter Plan of Treatment Not on file documented as of this encounter Procedures Procedure Name Priority Date/Time Associated Diagnosis Comments SURGICAL PATHOLOGY Today 02/20/2023 8: 53 EDT Calculus of gallbladder with chronic cholecystitis without obstruction documented in this encounter Results * SURGICAL PATHOLOGY (02/20/2023 8:53 EDT) Note to Patient The following pathology results have been interpreted by your pathologist and may be available to you before your health provider has had the opportunity to review them. Please allow time for your provider to receive these results and explore management options, if applicable. 02/24/2023 12:34 EDT [facility] Final Diagnosis A. GALLBLADDER, CHOLECYSTECTOMY: - Chronic cholecystitis. - Cholelithiasis. 02/24/2023 12:34 [facility] Attestation By the signature below, the attending physician certifies that they have 1) personally conducted a gross and/or microscopic examination of the described specimen(s), and/or personally interpreted the results of laboratory testing of the described specimen(s), and 2) personally rendered or confirmed the above diagnosis. 02/24/2023 12:34 [facility] at 1234 Clinical History Biliary colic 02/24/2023 12:34 [facility] Gross Description A. Received in formalin labelled with proper patient identification (initials M, J) and gallbladder is an intact gallbladder with an attached segment of cystic duct (8.9 x 2.8 x 2.8 cm). A cystic duct lymph node is not identified. The serosal surface is purple-green and smooth. The mucosa is dark green, smooth and velvety and the wall has an average thickness of 0.1 cm. The gallbladder lumen contains thick green mucinous bile and numerous dark brown-black friable gallstones ranging from 0.1-0.4 cm in greatest dimension. The cystic duct lumen is patent and measures 0.2 cm in diameter. The cystic duct margin is inked blue. The en face cystic duct margin and 2 electroplating sales representative wall cross sections are submitted in A1. ANA EDWARDS(ASCP) 02/23/2023 9:30 02/24/2023 12:34 [facility] Performing Lab [facility] 02/24/2023 12:34 [facility] Scanned Images 02/24/2023 12:34 [facility] Tissue ENTIRE GALLBLADDER / Unknown 02/20/2023 8:53 EDT 02/20/2023 19:03 EDT us Raimundo Fish MD PATHOLOGY ORDERABLES Final Resu lt [facility] [address] [place] [address] documented in this encounter Visit Diagnoses Diagnosis Calculus of gallbladder with chronic cholecystitis without obstruction Calculus of gallbladder with other cholecystitis, without mention of obstruction documented in this encounter Care Teams Mold Repairer Relationship Specialty Start Date End Date Unknown, Provider, PCP - General 06/22/15 documented as of this encounter
--- OUTSIDE RECORDS SUMMARY | 2024-08-17 13:35 | XMS_ITS | Encounter Summary ---
Author Organization [facility] Address [address] [place] [address] Care Team Providers Care Electric Blasting Cap Assembler Name Role Phone Unknown, Provider Primary Care Provider Unava ilable Encounter Details Date Type Department Care Team (Late st Contact Info) Description 08/10/2019 Lab Requisition [facility] Pathology & Laboratory Medicine - [address] [address] Unknown, Provider, Social History Tobacco Use Types Packs/Day Years [...] Procedure Name Priority Date/Time Associated Diagnosis Comments ACUTE HEPATITIS PROFILE Routine 08/10/2019 1:00 EST documented in this encounter Results * ACUTE HEPATITIS PROFILE (08/10/2019 1:00 EST) Hep B Surface Ag Negative Negative 08/12/2019 10:02 EST [facility] Hep C Antibody Negative Negative 08/12/2019 10:02 EST [facility] Hepatitis A Antibody, IgM Negative Negative 08/12/2019 10:02 EST [facility] Hepatitis B Core Ab, Total Negative Negative 08/12/2019 10:02 EST [facility] Blood VENOUS BLOOD / Unknown 08/10/2019 1:00 EST 08/11/2019 15:57 EST us Provider Unknown CHEMISTRY & BLOOD GAS ORDERA BLES Final Result [facility] [address] [place] [address] documented in this encounter Visit Diagnoses Not on filedocumented in this encounter Care Teams Electric Blasting Cap Assembler Relationship Specialty Start Date End Date Unknown, Provider, PCP - General 06/22/15 documented as of this encounter
--- OUTSIDE RECORDS SUMMARY | 2024-08-17 13:35 | XMS_ITS | Encounter Summary ---
Author Organization [facility] Address [address] [place] [address] Care Team Providers Care Axminster Weaver Name Role Phone Unknown, Provider Primary Care Provider Amaris mathur Encounter Details Date Type Department Care Team (Late st Contact Info) Description 11/21/2023 Lab Requisition [facility] Pathology & Laboratory Medicine - [facility] [address], [place] [id number] Outr Resulting Lab, Provider Social History Tobacco Use Types Packs/Day Years [...] Procedure Name Priority Date/Time Associated Diagnosis Comments T3, TOTAL Today 11/20/2023 16:25 EDT documented in this encounter Results * (ABNORMAL) T3, TOTAL (11/20/2023 16:25 EDT) T3, Total 177(H) 97 - 169 ng/dL 11/21/2023 23:00 EDT [facility] Blood VENOUS BLOOD / Unknown 11/20/2023 16:25 EDT 11/21/2023 21:32 EDT us Provider Outr Resulting Lab CHEMISTRY & BLOOD GA S ORDERABLES Final Result [facility] [address] [place], [place] [id number] documented in this encounter Visit Diagnoses Not on filedocumented in this encounter Care Teams Axminster Weaver Relationship Specialty Start Date End Date Unknown, Provider, PCP - General 06/22/15 documented as of this encounter
--- OUTSIDE RECORDS SUMMARY | 2024-08-17 13:35 | XMS_ITS | Encounter Summary ---
Author Organization [facility] Address [address] [place] [address] Care Team Providers Care Machine Rug Cleaner Name Role Phone Unknown, Provider Primary Care Provider Amaris mathur Encounter Details Date Type Department Care Team (Late st Contact Info) Description 10/31/2020 Lab Requisition [facility] Pathology & Laboratory Medicine - [address] [address] Outr Resulting Lab, Provider Social History Tobacco [...] Procedure Name Priority Date/Time Associated Diagnosis Comments ZZCOVID-19 TEST [facility] PCR Today 10/31/2020 14:35 EDT COVID-19 TESTING Routine 10/31/2020 14:3 5 EDT documented in this encounter Results * COVID-19 TEST [facility] PCR (10/31/2020 14:35 EDT) Swab ENTIRE NASOPHARYNX / Unknown 10/31/2020 14:35 EDT 10/31/2020 22:08 EDT us Provider Outr Resulting Lab MICROBIOLOGY - GENER AL ORDERABLES Final Result [facility] [address] [place] [address] * COVID-19 TESTING (10/31/2020 14:35 EDT) COVID-19 rt-PCR Result Negative Negative 11/01/2020 13:26 EDT [facility] Comment: This test has not been FDA cleared or approved. This test has been authorized by FDA under an EUA for use by authorized laboratories. This test has been authorized only for detection of nucleic acid from 2019-nCoV, not for any other viruses or pathogens. This test is only authorized for the duration of the declaration that circumstances exist justifying the authorization of emergency use of in vitro diagnostic tests for detection and/or diagnosis of 2019-nCoV under section 564(b)(1) of Act, 21 U.S.C ?? 360bbb-3(b) (1), unless the authorization is terminated or revoked sooner. Negative results do not preclude 2019-nCoV infection and should not be used as the sole basis for treatment or other patient management decisions. Negative results must be combined with clinical observations, patient history, and epidemiological information. Testing was performed using the gregg SARS-CoV-2 assay ([employer] on the Gregg 6800 System Performing Lab Gregg 6800 [facility] 11/01/2020 13:26 EDT [facility] Swab 10/31/2020 14:3 5 EDT 10/31/2020 22:08 EDT us Provider Outr Resulting Lab MICROBIOLOGY - GENER AL ORDERABLES Final Result [facility] [address] [place] [address] documented in this encounter Visit Diagnoses Not on filedocumented in this encounter Care Teams Machine Rug Cleaner Relationship Specialty Start Date End Date Unknown, Provider, PCP - General 06/22/15 documented as of this encounter
--- OUTSIDE RECORDS SUMMARY | 2024-08-17 13:35 | XMS_ITS | Encounter Summary ---
Author Organization [facility] Address [address] [place] [address] Care Team Providers Care Ultrasound Sonographer Name Role Phone Unknown, Provider Primary Care Provider Annva ilable Encounter Details Date Type Department Care Team (Late st Contact Info) Description 04/06/2024 Lab Requisition [facility] Pathology & Laboratory Medicine - [address] [address] Jayshree Keller MD [address] [place] [id number] Encounter for other general examination Social History Tobacco Use Types Packs/Day Years [...] Date/Time Associated Diagnosis Comments SURGICAL PATHOLOGY Today 04/06/2024 10 :49 EDT Encounter for other general examination documented in this encounter Results * SURGICAL PATHOLOGY (04/06/2024 10:49 EDT) Note to Patient The following pathology results have been interpreted by your pathologist and may be available to you before your health provider has had the opportunity to review them. Please allow time for your provider to receive these results and explore management options, if applicable. 04/12/2024 16:03 EDT [facility] Final Diagnosis A. ENDOMETRIUM, POLYPECTOMY: - Endometrial polyp. - Background inactive endometrium. - No cytologic atypia identified. B. ENDOMETRIUM, CURETTAGE: - Fragments of endometrial polyp. - Inactive endometrium. - Benign endocervical and squamous mucosa. - No cytologic atypia identified. 04/12/2024 16:03 T [facility] Attestation There was significant resident/fellow involvement in the diagnostic evaluation of this case. By the signature below, the attending physician certifies that they have personally conducted a gross and/or microscopic examination of the described specimens and rendered or confirmed the above diagnosis. 04/12/2024 16:03 T [facility] at 1603 Clinical History Endometrial polyp 04/12/2024 16:03 T [facility] Gross Description A. Received in formalin labelled with proper patient identification (initials M, J) and 1. Endometrial polyp is an aggregate of pink-white to walker-white soft to rubbery tissues and scant admixed translucent mucus and blood clot (4.1 x 2.7 x 0.3 cm). Entirely submitted in A1-A2. B. Received in formalin labelled with proper patient identification (initials M, J) and 2. Endometrial curettings is an aggregate of walker-galindo soft tissues and admixed blood clot (1.5 x 1.4 x 0.1 cm). Entirely submitted in B1. Daphne Mccartney 04/07/2024 11:16 04/12/2024 16:03 T [facility] Resident/Bijan w: Bennie Gallagher DO 04/12/2024 16:03 T [facility] Performing Lab [facility] 04/12/2024 16:03 T [facility] Scanned Images 04/12/2024 16:03 T [facility] Tissue ENDOMETRIAL STRUCTURE / Unknown 04/06/2024 10:49 EDT 04/06/2024 19:10 EDT Tissue specimen (specimen) ENDOMETRIAL STRUCTURE / Unknown 04/06/2024 10:49 EDT 04/06/2024 19:10 EDT us Jayshree Keller MD PATHOLOGY ORDERABLES Final R esult [facility] [address] [place] [address] documented in this encounter Visit Diagnoses Diagnosis Encounter for other general examination documented in this encounter Care Teams Ultrasound Sonographer Relationship Specialty Start Date End Date Unknown, Provider, PCP - General 06/22/15 documented as of this encounter
--- OUTSIDE RECORDS SUMMARY | 2024-08-17 13:35 | XMS_ITS | Encounter Summary ---
Author Organization [facility] Address [address] [place] [address] Care Team Providers Care Print Project Manager Name Role Phone Unavailable Primary Care Provider Unavailabl e Encounter Details Date Type Department Care Team (Latest Contact Info) Description 10/05/2000 13:33 EST Hospital Encounter [facility] - Other [address] [place] [address] Katherine Leon MD [address] [place] [address] Unknown, Provider, Discharge Disposition: Auto Discharge Social History Tobacco Use Types Packs/Day Years Used Date Smoking Tobacco: Never Assessed Comments Unknown Sex and Gender Information Value Date Recorded Sex Assigned at Not on file Legal Sex Female 18:22 EST Gender Identity Not on file Sexual Orientation Not on file documented as of this encounter Discharge Disposition Disposition Code Departure Means Destination Auto Discharge documented in this encounter Plan of Treatment Not on file documented as of this encounter Procedures Procedure Name Priority Date/Time Associated Diagnosis Comments CYTOPATHOLOGY Routine 10/05/2000 0:00 EST documented in this encounter Results * CYTOPATHOLOGY (10/05/2000 0:00 EST) Pathology Report: CYTOPATHOLOGY REPORT Reports generated via electronic interface contain original data; however they are lacking the format of the original report. Caution should be taken when reading/interpreti ng unformatted reports. Name: ? JERMAINE CRAVEN ? Accession #: ? [id number] : ? 1970 (Age: 29) ??F ?Collect Date: ? 10/05/2000 Location: ? [facility] ? Receive Date: ? 10/07/2000 Provider: ?KATHERINE LEON MD Copy to: ? Specimen/Source: ?ThinPrep Pap Test, Cervix/Endocervix Last Menstrual Period: ? SPECIMEN ADEQUACY ? Satisfactory for evaluation. GENERAL CATEGORIZATION ? Within Normal Limits ? Document reviewed and electronically signed by: ? Carissa Salmon, ??SCT(ASCP) ? Report Date: ??10/08/2000 08:19 End of Report [facility]RA 10/05/2000 10/07/2000 us Katherine Leon MD PATHOLOGY ORDERABLES Fin al Result S[facility] GUERRA [address] [place] [address] documented in this encounter Visit Diagnoses Not on filedocumented in this encounter
--- OUTSIDE RECORDS SUMMARY | 2024-08-17 13:35 | XMS_ITS | Encounter Summary ---
Author Organization [facility] Address [address] [place] [id number] Care Team Providers Care Vp Product Marketing Name Role Phone Unknown, Provider Primary Care Provider Unava ilable Encounter Details Date Type Department Care Team (Late st Contact Info) Description 08/10/2019 Lab Requisition [facility] Pathology & Laboratory Medicine - [address] [address] Unknown, Provider, Social History Tobacco Use Types [...] Procedure Name Priority Date/Time Associated Diagnosis Comments ANTI NUCLEAR AB (NIHARIKA), IFA Routine 08/10/2019 9:30 EST documented in this encounter Results * (ABNORMAL) ANTI NUCLEAR AB (NIHARIKA), IFA (08/10/2019 9:30 EST) NIHARIKA Interpretation Positive(A) Negative 08/12/2019 14:34 EST [facility] Comment: For titers greater than or equal to 1:160 (except the centromere and nucleolar patterns) it is recommended that specific follow-up autoantibody testing ??(such as for dsDNA and Extractable Nuclear Antigens) be performed on all diffuse and/or speckled patterns NOTE: For add-on testing dsDNA is cl for 7 days refrigerated while Extractable Nuclear Antigens are only stable for 48 hours refrigerated. Cytoplasmic Pattern Noted, Speckled NIHARIKA Titer and Pattern 1 1:160 Speckled 08/12/2019 14:34 EST [facility] Blood VENOUS BLOOD / Unknown 08/10/2019 9:30 EST 08/11/2019 15:58 EST Narrative [facility] - 08/12/2019 14:34 EST Results were obtained with the [employer] NOVA Lite HEp-2 NIHARIKA Kit by indirect immunofluorescence. us Provider Unknown IMMUNOLOGY AND SEROLOGY LEELA SUGGS Final Result Performing Organization Address City/State/[facility] Co de Phone Number [facility] [address] [place] [address] documented in this encounter Visit Diagnoses Not on filedocumented in this encounter Care Teams Vp Product Marketing Relationship Specialty Start Date End Date Unknown, Provider, PCP - General 06/22/15 documented as of this encounter
--- OUTSIDE RECORDS SUMMARY | 2024-08-17 13:35 | XMS_ITS | Encounter Summary ---
Author Organization [facility] Address [address] [place] [address] Care Team Providers Care Egg Smeller Name Role Phone Unknown, Provider Primary Care Provider Amaris mathur Encounter Details Date Type Department Care Team (Late st Contact Info) Description 12/24/2023 Lab Requisition [facility] Pathology & Laboratory Medicine - [facility] [address], [place] [id number] Outr Resulting Lab, Provider Social History Tobacco [...] Priority Date/Time Associated Diagnosis Comments T3, TOTAL Routine 12/23/2023 16:43 EDT documented in this encounter Results * T3, TOTAL (12/23/2023 16:43 EDT) T3, Total 141 97 - 169 ng/dL 12/24/2023 20:33 EDT [facility] Blood VENOUS BLOOD / Unknown 12/23/2023 16:43 EDT 12/24/2023 19:42 EDT us Provider Outr Resulting Lab CHEMISTRY & BLOOD GA S ORDERABLES Final Result [facility] [address] [place], [place] [address] documented in this encounter Visit Diagnoses Not on filedocumented in this encounter Care Teams Egg Smeller Relationship Specialty Start Date End Date Unknown, Provider, PCP - General 06/22/15 documented as of this encounter
[2024-08-17 13:42] LABS: Bacteria Negative HPF (Negative); Crystals Negative HPF (Negative); Epithelial Cells Negative HPF (Negative); Other Cells Negative (Negative); WBC 0-2 HPF (0-5)
[2024-08-17 13:43] LABS: C & S Indicated? No; Casts Negative LPF (Negative); Mucus Negative (Negative)
[2024-08-17 13:56] LABS: ALT 19 U/L (14-59); AST 11 U/L (15-37); Albumin 3.8 g/dL (3.4-5.0); Alkaline Phosphatase 79 U/L (46-116); Anion Gap 7.2 mmol/L (3-11); BUN 11 mg/dL (7-18); Bilirubin, Total 0.31 mg/dL (0.2-1.0); CO2 29.8 mmol/L (21.0-32.0); Calcium 8.9 mg/dL (8.5-10.1); Chloride 106 mmol/L (98-107); Estimated GFR 66.53 (mL/min/1.73m2); Glucose 93 mg/dL (74-106); Magnesium 2.1 mg/dL (1.8-2.4); Potassium 4.3 mmol/L (3.5-5.1); Sodium 143 mmol/L (136-145); Total Protein 7.2 g/dL (6.4-8.2)
[2024-08-17 14:08] LABS: COVID-19 PCR Negative (Negative); Influenza A PCR Negative (Negative); Influenza B PCR Negative (Negative); RSV PCR Negative (Negative); Source Nasopharynx
[2024-08-17 14:26] VITALS: BP 109/82; PULSE 90; RESP 16; TEMP 37.1; O2SAT 96
== END 2024-08-17 14:33 | disposition home or self-care (01) ==
PROVIDERS: Emergency Provider Emergency Medicine; PCP Internal Medicine
DX: R39.15 Urgency of urination (principal); R50.9 Fever, unspecified; E03.9 Hypothyroidism, unspecified; Z86.718 Personal history of other venous thrombosis and embolism; Z86.711 Personal history of pulmonary embolism
CPT/HCPCS: 36415; 80053; 87637; 99283; 81003; 81015; 83735; 85025

== ENCOUNTER 2024-09-01 04:09 | Outpatient (CLI) | payer OTHER, SELFPAY ==
[2024-09-01 12:45] LABS: TSH 1.92 uIU/mL (0.36-3.74)
== END 2024-09-01 04:10 | disposition home or self-care (01) ==
PROVIDERS: PCP Internal Medicine; Visit Provider Internal Medicine
DX: E03.9 Hypothyroidism, unspecified (principal)
CPT/HCPCS: 36415; 84443

== ENCOUNTER 2025-03-19 17:25 | Emergency (ER) | payer OTHER, SELFPAY ==
[2025-03-19 17:27] VITALS: BP 118/86; PULSE 107; RESP 16; TEMP 36.6; O2SAT 96
[2025-03-19 17:44] VITALS: BP 118/86; PULSE 107; RESP 16; TEMP 36.6; O2SAT 96
--- NOTE | 2025-03-19 17:45 | DI.CT_ITS ---
Exam(s) CT ABDOMEN PELVIS W EXAM: CT ABDOMEN PELVIS W CLINICAL HISTORY: UTI sx, upper abd pain, on GLP-1. TECHNIQUE: Imaging Protocol: Axial computed tomography images with coronal and sagittal reformatted images were created and reviewed CONTRAST MATERIAL: Intravenous: Omnipaque 350 Contrast volume:100 ml Oral: no COMPARISON: CT CT ABDOMEN PELVIS W from 01/26/2024 FINDINGS: ABDOMEN and PELVIS: Lung Bases: No acute findings. Liver: Normal density. No suspicious mass. Gallbladder and biliary tract: Cholecystectomy.. No biliary dilation. Pancreas: Normal density. No abnormal calcifications or inflammatory process. No evidence of mass. Spleen: Normal. Kidneys: Normal size, contour and axis. No radiodense stones. No obstructive uropathy. No suspicious masses seen. Adrenal glands: No masses seen. Vasculature: Abdominal aorta non-dilated. Mild atherosclerotic changes in the aorta and proximal iliac arteries. Dilated gonadal veins bilaterally with question of filling defects which could indicate thrombus versus inflow artifact. Soft tissues: diastasis recti. Bladder: Not well distended. Mild wall thickening. No calculi.No focal mass. Bowel: No obstruction. No bowel wall thickening. Appendix normal. Peritoneal cavity: No ascites. No focal collection. No mesenteric inflammatory response. No free air. Bones: Degenerative changes at L5-S1. Reproductive organs: Unremarkable. Lymph nodes: No pathologically enlarged lymph nodes. IMPRESSION:: Mild bladder wall thickening could indicate cystitis. The kidneys are unremarkable. Bilateral dilated gonadal veins with question of bilateral thrombosis versus inflow artifact. The preliminary [facility] report was reviewed. RADIATION DOSE DELIVERED: 771.13mGy.cm Total DLP DATA REPOSITORY: All CT scans at this facility are submitted to the National Radiology Data Registry (NRDR) Dose Index Registry (DIR) with the [employer] (ACR). RADIATION OPTIMIZATION: All CT scans at this facility use at least one of these dose optimization techniques: automated exposure control; mA and/or kV adjustment per patient size (includes targeted exams where dose is matched to clinical indication); or iterative reconstruction.
[2025-03-19 17:56] LABS: WBC 20-50 HPF (0-5)
--- NOTE | 2025-03-19 18:10 | W.ED.GENAD ---
Discharge Plan Disposition Patient Disposition: Home Condition: Good Discharge Details Clinical Impression: UTI (urinary tract infection), Hepatic lesion Primary Care Provider: Martin Raya ED Provider: Latasha Becker Home Meds and New Rx's Prescriptions: New cephalexin 500 mg capsule 500 mg PO BID Qty: 8 0RF No Action estradiol 0.01 % (0.1 mg/gram) cream 0.25 g vaginal .twice weekly Qty: 42.5 4RF Rx Instructions: Use Nightly x2wks. Then decrease to 2-3x/weekly. Massage olive sized amount around vaginal opening. vitamin B complex Capsule 1 cap PO DAILY levothyroxine [Levoxyl] 125 MCG tablet 125 mcg PO DAILY liothyronine 5 MCG tablet 5 mcg PO BID epinephrine 0.3 MG/SYR auto-injector 0.3 mg IM PRN PRN hydroxyzine HCl 10 mg tablet 10 mg PO QHS Patient Comments: TAKE 1 TO 2 TABLETS BY MOUTH 30 MIN BEFORE AT BEDTIME NEEDED FOR SLEEP Trintellix 10 mg tablet 10 mg PO DAILY buspirone 10 mg tablet 10 mg PO BID Patient Comments: TAKE ONE TABLET BY MOUTH TWICE A DAY Zepbound 5 mg/0.5 mL pen injector 10 mg SUBCUT .weekly Patient Comments: INJECT CONTENTS OF ONE PEN INJECTOR SUBCUTANEOUSLY ONCE WEEKLY Discharge Instructions Additional Instructions: Please call women's wellness first thing in the morning to schedule follow-up appointment. An incidental finding on CAT scan was noted, concern for abnormality/thrombosis of the gonadal veins in your pelvis. The CAT scan will be over read by our in-house radiologist in the morning; I recommend that you discuss this with an HOME MAKER to determine need for further evaluation. Please call your primary care provider in the morning as well. There was an incidental finding of indeterminate hepatic lesions, likely small cysts and/or hemangiomas. This is something that your primary care provider will continue monitoring on an outpatient basis Your workup today was reassuring. You do have a urinary tract infection. I will be starting you on cephalexin 500 mg twice a day for 5-day course. Please take the full course as prescribed. Stay well-hydrated, drinking plenty of fluids throughout the day. I encourage you to eat a gentle diet and rest as much as possible over the next couple of days. Return to emergency care if you develop new uncontrollable vomiting, new fevers after 48 hours of antibiotics, significant abdominal pain, chest pain/difficulty breathing, episodes of feeling like you are going to pass out, or if you are very worried and need to be rechecked again immediately Referrals: [facility] [Provider Group] Martin Raya [Primary Care Provider, Medicine] [facility] General Date/Time Provider Initiated Documentation: 03/19/25 17:27. HPI Narrative: Jermaine is a 54 year old female who presents to the ED for evaluation of night sweats, general malaise/fatigue, and vomiting accompanying UTI sx. She reports UTI symptoms started 3 days ago with dysuria and frequency. Yesterday developed suprapubic abdominal pain which had her doubled over in discomfort, went to convenient [facility] and was diagnosed with UTI. Given Rx for fosfomycin, but pharmacy was not able to fill until this morning. Last night took Azo tablets with some relief of symptoms. Last night she woke up with night sweats, saying that she soaked her sheets. Today has been fatigued and feeling unwell all day, reports nausea and decreased appetite. Took fosfomycin at 11 AM, then started vomiting around 4 PM. Denies recorded fevers, recent illness such as congestion/sore throat/headache/cough, chest pain, shortness of breath, diarrhea, unusual vaginal symptoms/discharge/bleeding. Recent ill contact w seth. She is on Zepbound, usually has nausea for the first couple of days after administration, last dose was 5 days ago. Does have a history of UTI, last 1 a year ago. Recently was on antibiotics (doxycyclinex 2 rounds) for sinus infection, last dose 2 weeks ago. PMH notable for celiac disease, kidney stones, hypothyroidism, cardiomyopathy. She has had colonoscopies in the past, significant for polyps. Surgical history significant for cholecystectomy, multiple laparoscopic surgeries for endometriosis and tubal ligation Related Data Home Medications ?Medication ?Instructions ?Recorded ?Confirmed epinephrine 0.3 mg/0.3 mL 0.3 mg IM PRN PRN 04/19/15 03/19/25 injection, auto-injector levothyroxine 125 mcg tablet 125 mcg PO DAILY 04/19/15 03/19/25 (Levoxyl) liothyronine 5 mcg tablet 5 mcg PO BID 04/19/15 03/19/25 hydroxyzine HCl 10 mg tablet 10 mg PO QHS 01/20/23 03/19/25 vortioxetine 10 mg tablet 10 mg PO DAILY 01/20/23 03/19/25 (Trintellix) buspirone 10 mg tablet 10 mg PO BID 09/12/23 03/19/25 vitamin B complex 1 cap PO DAILY 03/25/24 03/19/25 estradiol 0.01% (0.1 mg/gram) 0.25 g vaginal .twice weekly #42.5 04/29/24 03/19/25 vaginal cream grams tirzepatide (weight loss) 5 mg/0.5 10 mg subcut .weekly 08/17/24 03/19/25 mL subcutaneous pen injector (Zepbound) cephalexin 500 mg capsule 500 mg PO BID #8 caps 03/19/25 Previous Rx's ?Medication ?Instructions ?Recorded estradiol 0.01% (0.1 mg/gram) 0.25 g vaginal .twice weekly #42.5 04/29/24 vaginal cream grams cephalexin 500 mg capsule 500 mg PO BID #8 caps 03/19/25 Allergies Allergy/AdvReac Type Severity Reaction Status Date / Time azithromycin Allergy Severe Anaphylaxis Verified 03/19/25 17:33 codeine Allergy Severe Anaphylaxis Verified 03/19/25 17:33 honey Allergy Severe Anaphylaxis Verified 03/19/25 17:33 morphine Allergy Severe Anaphylaxis Verified 03/19/25 17:33 prednisone Allergy Severe Anaphylaxis Verified 03/19/25 17:33 Sulfa (Sulfonamide Allergy Severe Anaphylaxis Verified 03/19/25 17:33 Antibiotics) sulfamethoxazole (From Allergy Severe Anaphylaxis Verified 03/19/25 17:33 Bactrim) trimethoprim (From Bactrim) Allergy Severe Anaphylaxis Verified 03/19/25 17:33 venom-honey bee (bee venom Allergy Severe Anaphylaxis Verified 03/19/25 17:33 (honey bee)) gluten Allergy Intermediate Diarrhea Verified 03/19/25 17:33 Penicillins Allergy Other (See Verified 03/19/25 17:33 Comment) General Stated Complaint: Urinary JOHN: 3 Exam Narrative Exam Narrative: General Appearance: Normal. Patient is alert and oriented, no acute distress. Vital signs: Tachycardia upon presentation, heart rate 107 HEENT: Oropharynx clear, no erythema or exudate. Moist mucous membranes. Respiratory: Clear to auscultation bilaterally, no wheezes, rales, or rhonchi. Cardiovascular: Regular rate and rhythm, no murmurs, gallops, or rubs. Gastrointestinal: Tenderness in the upper abdomen, no rebound tenderness or guarding. Abdomen is nondistended with normoactive bowel sounds. No CVA tenderness Skin: Warm and dry, no rash. Psychiatric: Normal. Course Vital Signs Vital signs: Vital Signs Temperature 36.6 C 03/19/25 17:27 Pulse 107 H 03/19/25 17:27 Respiratory Rate 16 03/19/25 17:27 Blood Pressure 118/86 03/19/25 17:27 Pulse Oximetry 96 03/19/25 17:27 Temperature 36.6 C 03/19/25 17:44 Temperature Source Oral 03/19/25 17:44 Pulse 107 H 03/19/25 17:44 Respiratory Rate 16 03/19/25 17:44 Blood Pressure 118/86 03/19/25 17:44 Blood Pressure Position Sitting 03/19/25 17:44 Pulse Oximetry 96 03/19/25 17:44 Oxygen Delivery Method Room Air 03/19/25 17:44 Oxygen Flow Rate 0 03/19/25 17:44 Pain Level 4 03/19/25 17:44 Lab/Test Results Lab/Test Results: Laboratory Tests Range/Units 03/19/25 17:37 Urine Color (Yellow) [place] Urine Clarity (Clear) Sl Cloudy Urine pH (5-8) Ur Specific [place] (1.005-1.025) 1.015 Urine Protein (Neg-Trace) mg/dL Urine Ketones (Negative) mg/dL Urine Blood (Negative) Urine Nitrite (Negative) Urine Bilirubin (Negative) Urine Urobilinogen (Up to 0.2) mg/dL Ur Leukocyte Esterase (Negative) Urine RBC (0-2) HPF 3-5 H Urine WBC (0-5) HPF 20-50 H Ur Epithelial Cells (Negative) HPF Many Urine Crystals (Negative) HPF Negative Urine Bacteria (Negative) HPF Many Urine Mucus (Negative) Trace Ur Culture Indicated? No/Sq. Contamination Urine Glucose (Negative) mg/dL Medical Decision Making Initial Assessment: 54-year-old female with UTI symptoms including burning, urinary frequency, irritation, and pain with urination. Significant pain and discomfort, recent nausea and vomiting after Azo. She is on a GLP-1 agonist Differential Diagnosis includes but is not limited to: UTI, pyelonephritis, mild pancreatitis, dehydration, electrolyte imbalance, viral illness, gastritric irritation related to fosfomycin use ED Course: - IV fluids administered. - Antiemetic medication administered. - Blood work obtained. - Abdominal scan ordered. I independently interpreted the following tests: CBC, CMP, and lipase all unremarkable. UA consistent with UTI, 20-50 white blood cells. Jermaine reported significant improvement of nausea/vomiting after antiemetics and fluids. Does continue to have some epigastric discomfort with palpation, no suprapubic/pelvic discomfort. CT abdomen/pelvis performed, hazy margins of bladder consistent with UTI. Incidental findings of filling defect within left gonadal vein and torturous dilatation of the right gonadal vein do not currently match clinical presentation, patient does not have pelvic discomfort. No history of unprovoked DVT (only after long haul travel), recent DVT symptoms, recent surgery/immobility, recent long-haul travel, history of malignancy, or history of systemic estrogen use. She has seen [facility] wellness at [facility] previously, is currently due for a follow-up. Hepatic lesions also noted, likely small cyst versus hemangiomas. I did review incidental findings with Jermaine, I recommend follow-up with PCP and women's wellness for further evaluation/management of these findings. Plan to change antibiotic to cephalexin 500 mg BID x 5 days; first dose given in ED. Jermaine does have a history of allergic reaction to penicillin (though testing by arm maker showed that she may be able to tolerate penicillins in a controlled environment), however says she has tolerated cephalexin in the past. Reviewed with her that there is a very low risk of cross-reactivity with cephalexin. She is agreeable to trying this medication, says that she has an EpiPen at home and will return if any complications. Clinical Impression: - UTI - Nausea and vomiting Disposition: - Discharge: Home. Reviewed discharge instructions with patient, including symptomatic management, change in antibiotics, incidental findings, follow-up recommendations, and red flags indicating need for return to emergency care. Return if symptoms worsen or new symptoms develop. - Follow-Up: Primary care provider for further management. Patient consented to the use of [facility] Imaging Data Radiologic Study: Radiologist's impression: PROCEDURE INFORMATION: Exam: CT Abdomen And Pelvis With Contrast Exam date and time: 03/19/2025 6:49 PM Age: 54 years old Clinical indication: Abdominal pain; Localized; Prior surgery; Surgery date: 6+ months; Surgery type: Cholecystectomy; UTI SX, upper abd pain, on glp-1 TECHNIQUE: Imaging protocol: Computed tomography of the abdomen and pelvis with contrast. Contrast material: OMNIPAQUE 350; Contrast volume: 100 ml; Contrast route: INTRAVENOUS (IV); COMPARISON: CT ABDOMEN PELVIS W 01/26/2024 7:47 PM FINDINGS: Lungs: Lung bases clear. Liver: Small indeterminate hypoattenuating hepatic lesions, incompletely characterized but most likely small cysts and/or hemangiomas. Gallbladder and biliary ducts: Prior cholecystectomy. No biliary dilatation. Pancreas: Normal appearing pancreas. Spleen: Normal appearing spleen. Adrenal glands: Normal appearing adrenal glands. Kidneys and ureters: Normal appearing kidneys. No hydronephrosis. No obstructing ureteral stones. Stomach and bowel: No oral contrast. Stomach partially decompressed. No small bowel dilatation to suggest obstruction. Normal-appearing colon. No evidence of diverticulitis or colitis. Appendix: Normal retrocecal appendix. Intraperitoneal space: No gross ascites or free air. Vasculature: Normal caliber abdominal aorta. Lymph nodes: No pathologically enlarged mesenteric, retroperitoneal, or pelvic sidewall lymph nodes. Urinary bladder: Urinary bladder partially decompressed but circumferentially thick-walled with hazy indistinctness of the bladder margins. Reproductive: Anteverted uterus, normal in size. Ovaries partially obscured but normal in size. Tortuous dilatation of the right gonadal vein with an appearance suspicious for gonadal vein thrombosis. Filling defect within the left gonadal vein as well on images 62-69 of series 2 suspicious for thrombus in the left gonadal vein as well although an artifactual appearance created by inflow artifact could perhaps simulate this appearance. Bones/joints: No acute fracture seen among the bones of the abdomen or pelvis. Prominent discogenic degeneration at L5-S1 Soft tissues: Diastasis recti. Small fat containing ventral hernia at the umbilicus. IMPRESSION: 1. 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 Clinical correlation recommended. 2. No acute bowel pathology demonstrated. 3. Urinary bladder partially decompressed but circumferentially thick-walled with hazy indistinctness of the bladder margins. Acute cystitis could have this appearance although an artifactual appearance created by underdistention can also produce apparent bladder wall thickening. Clinical correlation is recommended. 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 no vermin exterminator anti coag required- per pt. Hypothyroidism (Chronic) Cervical neuralgia (Acute) Chest pain (Acute) Medical History (Updated 03/19/25 @ 20:40 by Latasha Kaplan) Endometrial polyp Removed 04/06/24 Surgical History History of laparoscopic cholecystectomy (~02/20/23) Social History (Updated 03/25/24 @ 13:00 by Hermelinda Smith) Smoking/Tobacco Use Status: Never Second Hand Exposure: Yes Smoking risk assessment performed?: Yes Alcohol Intake: current Alcohol Intake frequency: holidays/special occasions only Alcohol type: other Drug use: Never Substance use type: does not use Household members: spouse and family Housing: house 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 Sexually active: Yes Current gender identity: female What is your relationship status?: Panel score (0-1 are the most socially isolated patients): 1 What type of physical activity do you participate in: none Seatbelt use: always Helmet use: Yes Drive intox or ride w/intox hammer driver: No Do you feel safe at home: Yes Do you feel safe in your relationship?: Yes Female Reproductive History Menstrual Age of Menarche: 7 History History 6 Para 3 Hx # Term Pregnancies Multiple births Hx # Pregnancies Ectopic pregnancies AB induced Hx Number of Living Children AB spontaneous 3 Past Pregnancies Del. Date GA/Weeks # Preg Succ Route Wgt Sex Labor Lgth Anesthesia Location Prov Complic 06/02/90 No vaginal 06/26/94 No vaginal 12/28/96 No vaginal
[2025-03-19 18:19] LABS: Abs Immature Grans 0.02 10^3/uL (0.0-0.06); HCT 38.1 % (36.0-46.0); HGB 12.6 g/dL (11.2-15.7); Immature Grans % 0.3 %; MCH 28.8 pg (27.0-33.0); MCHC 33.1 % (32.0-36.0); MCV 87 fL (80-95); MPV 9.8 fL (8.0-11.0); Platelet Count 188 10^3/uL (130-400); RBC 4.38 10^6/uL (3.93-5.22); RDW 13.1 % (11.7-14.6); RDW-SD 41.3 fL; WBC 6.05 10^3/uL (4.4-10.8)
[2025-03-19] MEDS: Ondansetron 4 MG/2 ML VIAL IVP (18:19)
[2025-03-19] MEDS: Normal Saline 1,000 ML 1000 ML IV (18:20)
[2025-03-19 18:35] LABS: ALT 24 U/L (14-59); AST 13 U/L (15-37); Albumin 4.1 g/dL (3.4-5.0); Alkaline Phosphatase 81 U/L (46-116); Anion Gap 10.1 mmol/L (3-11); BUN 14 mg/dL (7-18); Bilirubin, Total 0.5 mg/dL (0.2-1.0); CO2 26.9 mmol/L (21.0-32.0); Calcium 9.0 mg/dL (8.5-10.1); Chloride 104 mmol/L (98-107); Estimated GFR 58.97 (mL/min/1.73m2); Glucose 95 mg/dL (74-106); Lipase 35 U/L (<78); Potassium 3.8 mmol/L (3.5-5.1); Sodium 141 mmol/L (136-145); Total Protein 7.2 g/dL (6.4-8.2)
[2025-03-19] MEDS: Omnipaque 350 MG/ML 100 ML BTL IJ (18:46)
[2025-03-19] MEDS: Normal Saline - Diluent 50 ML VIAL IJ (18:47)
[2025-03-19] MEDS: Normal Saline Flush 10 ML SYR IVP (18:49)
[2025-03-19 19:42] VITALS: PULSE 88; RESP 12
--- NOTE | 2025-03-19 20:07 | DI.VRAD_ITS ---
PROCEDURE INFORMATION: Exam: CT Abdomen And Pelvis With Contrast Exam date and time: 03/19/2025 6:49 PM Age: 54 years old Clinical indication: Abdominal pain; Localized; Prior surgery; Surgery date: 6+ months; Surgery type: Cholecystectomy; UTI SX, upper abd pain, on glp-1 TECHNIQUE: Imaging protocol: Computed tomography of the abdomen and pelvis with contrast. Contrast material: OMNIPAQUE 350; Contrast volume: 100 ml; Contrast route: INTRAVENOUS (IV); COMPARISON: CT ABDOMEN PELVIS W 01/26/2024 7:47 PM FINDINGS: Lungs: Lung bases clear. Liver: Small indeterminate hypoattenuating hepatic lesions, incompletely characterized but most likely small cysts and/or hemangiomas. Gallbladder and biliary ducts: Prior cholecystectomy. No biliary dilatation. Pancreas: Normal appearing pancreas. Spleen: Normal appearing spleen. Adrenal glands: Normal appearing adrenal glands. Kidneys and ureters: Normal appearing kidneys. No hydronephrosis. No obstructing ureteral stones. Stomach and bowel: No oral contrast. Stomach partially decompressed. No small bowel dilatation to suggest obstruction. Normal-appearing colon. No evidence of diverticulitis or colitis. Appendix: Normal retrocecal appendix. Intraperitoneal space: No gross ascites or free air. Vasculature: Normal caliber abdominal aorta. Lymph nodes: No pathologically enlarged mesenteric, retroperitoneal, or pelvic sidewall lymph nodes. Urinary bladder: Urinary bladder partially decompressed but circumferentially thick-walled with hazy indistinctness of the bladder margins. Reproductive: Anteverted uterus, normal in size. Ovaries partially obscured but normal in size. Tortuous dilatation of the right gonadal vein with an appearance suspicious for gonadal vein thrombosis. Filling defect within the left gonadal vein as well on images 62-69 of series 2 suspicious for thrombus in the left gonadal vein as well although an artifactual appearance created by inflow artifact could perhaps simulate this appearance. Bones/joints: No acute fracture seen among the bones of the abdomen or pelvis. Prominent discogenic degeneration at L5-S1 Soft tissues: Diastasis recti. Small fat containing ventral hernia at the umbilicus. IMPRESSION: 1. 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 Clinical correlation recommended. 2. No acute bowel pathology demonstrated. 3. Urinary bladder partially decompressed but circumferentially thick-walled with hazy indistinctness of the bladder margins. Acute cystitis could have this appearance although an artifactual appearance created by underdistention can also produce apparent bladder wall thickening. Clinical correlation is recommended. Dictated and Authenticated by: Miles Bales MD. Orderin Ysabel Pagan MD
== END 2025-03-19 20:49 | disposition home or self-care (01) ==
PROVIDERS: Emergency Provider Nurse Practitioner Family; PCP Internal Medicine
DX: N39.0 Urinary tract infection, site not specified; R11.2 Nausea with vomiting, unspecified; R10.30 Lower abdominal pain, unspecified; K76.9 Liver disease, unspecified
CPT/HCPCS: 36415; 80053; 83690; 96361; 96374; 99285; 74177; 81003; 81015; 85025; 99284; J2405; J3490